=== PATIENT | male | born 1980 | race Caucasian/White ===

== ENCOUNTER 2018-07-21 15:03 | Emergency (ER) | payer OTHER, SELFPAY ==
[2018-07-21 15:06] VITALS: BP 164/87; PULSE 83; RESP 18; TEMP 37.2; O2SAT 99; BMI 21.1
--- NOTE | 2018-07-21 15:10 | ED.DCSUM_ITS ---
- ER Visit Summary Date of Service: 07/21/18 Chief Complaint: Vision presents with dental pain that started 2-3 days ago now he has left face swelling, he has an appointment to see a dentist. He has no fever chills or difficulty swallowing. Physical Examination: Patient has widespread dental decay, there is no periapical abscess but there is tenderness and swelling over the right side of the face. Normal soft palate and normal exam otherwise Emergency Department Course and Treatment: Patient will be discharged with antibiotics and Naprosyn. Discharge stable condition Impression: [Odontalgia Facial swelling] [] This note was generated with [employer] dictation software. It may contain incorrect words, spelling, and punctuation that were not noted in review of the chart prior to signing ED Disposition - Plan for ED Patient: Disposition: Home or Assisted Living Instructions: ED Abscess Dental Prescriptions: Naproxen [Naprosyn] 500 mg PO BID PRN #20 tab Clindamycin [Cleocin] 300 mg PO TID #60 cap Referrals: NOT,DEFINED [Primary Care Provider] - Additional Instructions: Follow-up with your dentist as scheduled
== END 2018-07-21 15:17 | disposition home or self-care (01) ==
PROVIDERS: Emergency Provider Emergency Medicine
DX: K08.89 Other specified disorders of teeth and supporting structures (principal); L02.01 Cutaneous abscess of face; Z72.0 Tobacco use
CPT/HCPCS: 99282

== ENCOUNTER 2023-01-03 22:01 | Inpatient (IN) | payer OTHER, SELFPAY ==
[2023-01-03 22:02] VITALS: BP 155/81; PULSE 99; RESP 18; TEMP 36.6; O2SAT 100
[2023-01-03 22:30] VITALS: O2SAT 97
--- NOTE | 2023-01-03 22:30 | EDS_ITS ---
HPI History of Present Illness Chief Complaint: Chest Pain Informant: patient Onset/Context/Timing Onset: Days (3) Activity at onset: other (Seems to occur randomly) Timing: Intermittent and Lasts (20 minutes or so, current episode lasting about 3 hours and still present) Quality: Positive for - (Squeezing/clutching) Location: Substernal (With radiation/tingling in both arms) Current Severity: Moderate Maximum Severity: Moderate Worsened By: Nothing and Eating; Not Worsened By Exertion, Movement of Arm, Movement of Torso, Breathing or Coughing Relieved By: Nothing Associated Symptoms: Positive for Diaphoresis; Negative for Nausea, Vomiting, Dyspnea, Cough, Fever, Lightheadedness or Palpitations Narrative Narrative: 42-year-old male has been having chest discomfort for the past 3 days, current episodes been lasting for 3 hours. Nonpleuritic, substernal radiates to both arms. Sister suddenly of a heart problem at age 43. He has not seen a doctor in a long time, no known medical problems. He is a smoker. Does not use any cocaine. CVD Risk Factors: Positive for Family History 1' </=55 and Smoking PFSH PFS Medical History no medical history no medical history Home Medications clindamycin HCl 150 mg capsule 300 mg (2 x 150 mg) PO TID #60 caps 07/21/18 [Rx Last Taken Unknown] naproxen 500 mg tablet 500 mg PO BID PRN #20 tabs 07/21/18 [Rx Last Taken Unknown] Allergy/AdvReac Type Severity Reaction Status Date / Time bupropion [From Wellbutrin] Allergy Swelling Verified 01/03/23 22:04 paroxetine [From Paxil] Allergy Swelling Verified 01/03/23 22:04 Social History (Updated 01/03/23 @ 22:[address] Angelo Nguyen MD) Smoking Status: Current every day smoker tobacco type: cigarettes substance use type: former substance user Date of last use: Years ago, methamphetamine and marijuana ROS ROS ED Constitutional Constitutional ED: Reports sweats; Denies chills or fever(s) Eyes Eyes: Denies change in vision or diplopia ENT ENT ED: Denies rhinorrhea or sore throat Cardiovascular Cardiovascular: Reports as per HPI, chest pain and radiating jaw, neck or arm pain; Denies leg edema, palpitations or syncope Respiratory/Chest Respiratory/Chest: Denies cough or dyspnea Gastrointestinal Gastrointestinal: Denies abdominal pain, diarrhea, nausea or vomiting Genitourinary Genitourinary ED: Denies dysuria or hematuria Musculoskeletal Musculoskeletal: Denies back pain or neck pain Integumentary Denies abscess or rash Neurologic Neurologic: Denies headache(s), paresthesias or weakness Psychiatric Psychiatric: Denies anxiety or suicidal thoughts EXAM Physical Exam Const Vital Signs: 01/03/23 22:02 01/03/23 22:30 01/03/23 22:55 Temperature 97.9 F Temperature Source Temporal Pulse Rate 99 Respiratory Rate 18 Blood Pressure 155/81 H 153/117 H Blood Pressure Mean 105 Pulse Ox 100 97 Oxygen Delivery Method Room Air Room Air Positive well nourished and well developed General Appearance ED: well developed and NAD HEENT Reports moist mucous membranes normocephalic and atraumatic Eyes PERRL and EOMs intact bilaterally Neck full ROM and supple Chest Wall inspection of chest normal and palpation of chest normal Resp normal respiratory effort and clear to auscultation bilaterally Cardio regular rate, regular rhythm and no murmurs GI non-tender and non-distended Auscultation: normoactive bowel sounds Palpation: soft Back/Spine no CVA tenderness General Back: other FROM Extremity normal to inspection General Extremety ED: Negative for edema, pulses abnormal or tenderness General Extremity: Negative for edema or pulses abnormal Neuro oriented x3, CN's II-XII intact bilaterally and no sensory deficits noted Sensorium / Orientation: awake and alert Motor Exam: strength 5/5 throughout Skin no rashes or lesions noted and no wounds Heart Score History: Highly Suspicious ECG: Nonspecific Repolarization Age: </= 45 years Risk Factors: 1 or 2 Risk Factors Troponin: >/=3 x Normal Limit Score: 6 MDM MDM MDM Narrative Medical decision making narrative: Patient was given aspirin and nitroglycerin after 1 single sublingual nitroglycerin his pain is a lot better but still present. His EKG is concerning for unstable angina along with the symptoms, his troponin is high accordingly. Chest x-ray shows narrow mediastinum. He does not have symptoms of a dissection so I think that is a lot less likely here. Discussed with Dr. Richardson cardiology, advises heparin and nitroglycerin drips and agrees that the EKG is not a STEMI, advises admission. Patient is stable clinically and hemodynamically blood pressure doing well in the 150s after the sublingual nitroglycerin prior to starting the drip. Lab Data Attestation: I reviewed the patient's lab results. Labs: Laboratory Results - last 24 hr 01/03/23 22:30 WBC 9.6 RBC 5.43 Hgb 17.5 H Hct 52.2 MCV 96.1 H MCH 32.2 H MCHC 33.5 RDW Std Deviation 48.4 H RDW Coeff of Silvana 13.6 Plt Count 298 MPV 10.8 Immature Gran % (Auto) 0.200 Neut % (Auto) 62.4 Lymph % (Auto) 22.5 [place] % (Auto) 11.4 H Eos % (Auto) 2.5 Baso % (Auto) 1.0 Absolute Neuts (auto) 6.0 Absolute Lymphs (auto) 2.17 Nucleated RBC % 0 APTT 27.5 Sodium 138 Potassium 3.6 Chloride 103 Carbon Dioxide 25.0 Anion Gap 10 BUN 5 L Creatinine 0.99 Est GFR (MDRD) Af Amer 106 Est GFR (MDRD) Non-Af 87 BUN/Creatinine Ratio 5.0 L Glucose 92 Calcium 8.8 Troponin I High Sens 7592 H* Radiography Chest X-Ray - ED: 2 View, Read by ED Physician and No Acute Disease Diagnostic Testing: Clinical Impression(s) from Imaging Studies Chest X-Ray 01/03/23 22:45 IMPRESSION: No acute pulmonary disease. Electronically Signed: Sharath Jama MD at 23:15 EDT Reading Location ID and State: [address] [place] [address] Tel , Service support , Rhythm Strip Rhythm Strip: Sinus Tach Rate: 100 Ectopy: None EKG Initial EKG: Attestation: I personally reviewed and interpreted this EKG as follows: Interpretation: Sinus Rhythm, No Acute Injury Pattern, Inverted T-Waves (Precordial leads) and S-T Elevation (1 mm V5-V6) Prior EKG tracings: not available for review Prior: No Prior Management Discussion w/another healthcare provider: Hospitalist and Learning Coach (Cardiology Dr. 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
[2023-01-03] MEDS: Aspirin 81 MG TAB.CHEW 324 MG PO (22:31)
[2023-01-03 22:42] LABS: Absolute Lymphocyte Count 2.17 X10^3/uL (0.83-4.51); Eosinophil# 0.24 X10^3/uL; Eosinophils% 2.5 % (0-5); Hematocrit 52.2 % (40-54); Hemoglobin 17.5 g/dL (13.0-16.5); Lymphocyte # 2.17 X10^3/ul (0.83-4.51); Lymphocyte % 22.5 % (19-41); Mean Corp Hgb Conc 33.5 g/dL (32-36); Mean Corpuscular Hgb 32.2 pg (27.0-32.0); Mean Corpuscular Volume 96.1 fL (80-94); Mean Platelet Vol. 10.8 fl (6.2-12.0); Monocyte% 11.4 % (0-10); NRBC Flagged by Analyzer 0 % (0-5); Neutrophil # 6.01 X10^3/uL (2.7-7.7); Neutrophil % 62.4 % (47-70); Platelet Count 298 K/mm3 (150-450); RBC Distribution Width CV 13.6 % (11.6-14.6); RBC Distribution Width SD 48.4 fl (35.1-43.9); Red Blood Count 5.43 M/mm3 (4.6-6.2); White Blood Count 9.6 K/mm3 (4.4-11.0)
--- NOTE | 2023-01-03 22:45 | RAD_ITS ---
INDICATION: chest pain EXAMINATION: Frontal view of the chest COMPARISON: None. FINDINGS: Frontal view of the chest was obtained. The cardiac silhouette is not enlarged. No confluent airspace disease. No pneumothorax. No acute fracture identified. RAD/Chest 1 View (Portable) IMPRESSION: No acute pulmonary disease. Electronically Signed: Sharath Jama MD at 23:15 EDT ,
[2023-01-03 22:52] LABS: Partial Thromboplast Time 27.5 Seconds (24.1-36.2)
[2023-01-03 22:55] VITALS: BP 153/117
[2023-01-03] MEDS: 0.9% Normal Saline 1,000 ML 150 ML IV (22:55)
[2023-01-03] MEDS: Nitroglycerin SL (ED/IMG/CATH) 0.4 MG TABLET SL (22:55)
[2023-01-03 23:06] LABS: Anion Gap 10 (5-15); BUN 5 mg/dL (7-18); Calcium,Total 8.8 mg/dL (8.5-10.1); Chloride 103 mmol/L (98-107); Creatinine, Serum 0.99 mg/dL (0.70-1.30); EST Glomerular Filtration Rate 87 mL/min (>60); Est Glom Filt Rate - Afr Amer 106 mL/min (>60); Glucose 92 mg/dL (74-106); Potassium 3.6 mmol/L (3.5-5.1); Sodium Level 138 mmol/L (136-145); Troponin-I HS (w/2H Reflex) 7592 pg/mL (3.0-78.0)
[2023-01-03 23:23] VITALS: BMI 20.9
--- NOTE | 2023-01-03 23:32 | HP.PCM.HOS_ITS ---
HPI - General General Date of Admission: 01/04/23 Date of Service: 01/03/23 Chief Complaint: Chest pain HPI Narrative ELANA ROGERS, is a 42 M with a significant history of alcoholism and tobacco abuse who presents to the emergency department with 3-day history of chest pain. His chest pain is located at his left chest. The chest pain radiates to his bilateral hands; left, worse than right. He described chest pain as burning and tightening.Initially his chest pain was lasting for about 20 minutes at a time but on the day of presentation the chest pain lasted about 3 hours nonstop. The intensity of the pain was 8 on a scale of 1-10. Also chest pain increased has increased in intensity since it started 3 days ago. If he raise his hand above his head the chest pain eases his for little while. If he eats the chest pain worsens. He associated his chest pain with heartburn. [facility] Medical History no medical history no medical history Home Medications NK 01/04/23 [History Last Taken Unknown] Allergy/AdvReac Type Severity Reaction Status Date / Time bupropion [From Wellbutrin] Allergy Swelling Verified 01/03/23 22:04 paroxetine [From Paxil] Allergy Swelling Verified 01/03/23 22:04 Family History (Updated 01/04/23 @ 00:[address] Blane Hobbs MD) Other Heart disease no surgical history Social History Smoking Status: Current every day smoker tobacco type: cigarettes substance use type: former substance user Date of last use: Years ago, methamphetamine and marijuana ROS ROS Narrative Pertinent positives and pertinent negatives as noted in HPI. All other systems were reviewed and are negative Vital Signs Vital Signs Vital Signs: 01/03/23 22:02 01/03/23 22:30 01/03/23 22:55 Temperature 97.9 F Temperature Source Temporal Pulse Rate 99 Respiratory Rate 18 Blood Pressure 155/81 H 153/117 H Blood Pressure Mean 105 Pulse Ox 100 97 Oxygen Delivery Method Room Air Room Air Weight Weight: 71.894 kg Body Mass Index (BMI) 20.9 Physical Exam Narrative Physical exam: General: Well-nourished, well-developed. Head: Normocephalic, atraumatic, no tenderness Eyes: Vision is grossly intact. EOMI ENT, no trauma, moist mucous membranes, no rhinorrhea Neck: Nontender, No thyromegaly. CVS: Regular rate and rhythm. S1-S2 present. No murmur, gallop or rub. Respiratory : clear to auscultation bilaterally, chest wall nontender Abdomen: Soft, nontender, nondistended, normal bowel sounds, no masses : Deferred Back: Nontender, no CVA tenderness, no midline spinal tenderness, deformities, step-offs Extremities: Nontender full range of motion, no trauma Skin: Normal color, no trauma, abrasions Neuro: Alert, oriented, cranial nerves II through XII grossly intact. Psychiatry: Normal mood. Normal affect. Not depressed. Not anxious. Results Lab / Micro Data 01/03/23 22:30 01/03/23 22:30 Labs: Laboratory Results - last 24 hr 01/03/23 22:30: WBC 9.6, RBC 5.43, Hgb 17.5 H, Hct 52.2, MCV 96.1 H, MCH 32.2 H, MCHC 33.5, RDW Std Deviation 48.4 H, RDW Coeff of Silvana 13.6, Plt Count 298, MPV 10.8, Immature Gran % (Auto) 0.200, Neut % (Auto) 62.4, Lymph % (Auto) 22.5, [place] % (Auto) 11.4 H, Eos % (Auto) 2.5, Baso % (Auto) 1.0, Absolute Neuts (auto) 6.0, Absolute Lymphs (auto) 2.17, Nucleated RBC % 0, APTT 27.5, Sodium 138, Potassium 3.6, Chloride 103, Carbon Dioxide 25.0, Anion Gap 10, BUN 5 L, Creatinine 0.99, Est GFR (MDRD) Af Amer 106, Est GFR (MDRD) Non-Af 87, BUN/Creatinine Ratio 5.0 L, Glucose 92, Calcium 8.8, Troponin I High Sens 7592 H* Rhythm Strip Rhythm Strip: Sinus Tach Rate: 100 Ectopy: None Radiology Impression Chest X-Ray 01/03/23 22:45 IMPRESSION: No acute pulmonary disease. Electronically Signed: Sharath Jama MD at 23:15 EDT , Assessment & Plan Assessment/Plan (1) Non-STEMI (non-ST elevated myocardial infarction): PLAN: Plan Non-STEMI Place on a monitored bed at ICU Impression of chest x-ray by radiology: No acute pulmonary disease. Actual CXR image was independently visualized. No acute cardiopulmonary process was noted. Actual EKG tracing was independently visualized. EKG tracing showed T wave inver sions in lead V1 to V6. Received 4 baby aspirin's at the emergency department. ASA 81 mg p.o. daily ordered Placed on nitroglycerin drip in the emergency department. Morphine as needed for pain ordered We will check lipid panel. Statin: High intensity statin ordered. Anticoagulation: Started on heparin drip for emergent department and continued. Initial high sensitivity troponin was 7592. Stat EKG as needed for chest pain Alcoholism Counselled Routine CIWA checks. Folic acid and thiamine ordered. Tobacco abuse Counseled. DVT prophylaxis: Not indicated as patient restart heparin drip for non-STEMI. Time spent in the patient's overall evaluation,decision-making process, review of diagnostic data, adjustment of management, discussion with other providers, nursing nursing and ancillary staff involved in patient's care documentation, 65 minutes. Charges/Coding Visit Charges Inpatient E&M: 87711 Init Hosp L3
[2023-01-03] MEDS: Heparin Injection (Vial) 5,000 UNIT/ML VIAL 4000 UNIT IV (23:47)
[2023-01-03 23:53] LABS: Prothrombin Time (Protime)PT. 12.7 SECONDS (11.7-14.9)
[2023-01-03] MEDS: HEPARIN/D5w 25,000 UNITS 25,000 UNITS/250 ML IV.SOLN. 9 UNITS CONT INF (23:53)
[2023-01-03 23:56] VITALS: BP 152/110
[2023-01-03] MEDS: Nitroglycerin Infusion 250 ML 3 MG CONT INF (23:56)
--- NOTE | 2023-01-03 23:57 | EKG12_ITS ---
Test Reason : AM EKG Blood Pressure : / mmHG Vent. Rate : 058 BPM Atrial Rate : 058 BPM P-R Int : 152 ms QRS Dur : 110 ms QT Int : 414 ms P-R-T Axes : 046 032 128 degrees QTc Int : 406 ms Sinus bradycardia with sinus arrhythmia Incomplete right bundle branch block Minimal voltage criteria for LVH, may be normal variant ( Wayne product ) Anteroseptal infarct (cited on or before 03-JAN-2023) ST & Marked T wave abnormality, consider lateral ischemia Abnormal ECG Confirmed by MONTANA FALL, TASHI ([id number]), technical editor SAMUEL GRIFFIN ([id number]) on 01/09/2023 7:17:29 AM Referred By: Confirmed By:TASHI BOYLE MD
[2023-01-04] VITALS (32 sets, daily range): BP systolic 106–160; BP diastolic 81–117; PULSE 51–99; RESP 12–24; TEMP 36.3–36.8; O2SAT 90–100; BMI 21.4
--- NOTE | 2023-01-04 00:08 | ED.RN ---
0008: Report called to Rebekah LIM on ICU. Dr. Salazar speaking with patient.
--- NOTE | 2023-01-04 00:20 | ECHOD_ITS ---
Reason For Study: CHEST PAIN Procedure This was a 2D Doppler, Color Flow transthoracic echocardiogram. Exam performed portable in ICU/CCU. Left Ventricle Mildly dilated left ventricle. The estimated ejection fraction is 30 %. Apical akinesis. Severe anterior and anterior septal hypokinesis. Global hypokinesis. Right Ventricle Normal RV size. Normal systolic function. Atria The left and right atria are normal. Mitral Valve The mitral valve is structurally normal. No prolapse or stenosis seen. Trivial mitral valve insufficiency. Tricuspid Valve Normal tricuspid valve. Trivial tricuspid valve insufficiency. Unable to estimate RV systolic pressure due to insufficient tricuspid regurgitant envelope. Aortic Valve Trisinus/trileaflet aortic valve. Mild focal thickening of the right coronary cusp. Mild focal aortic valve calcification. There is no aortic stenosis. No aortic valve insufficiency. Pulmonic Valve Normal pulmonic valve. Great Vessels Normal aortic root. Pericardium/Pleural No pericardial effusion. MMode/2D Measurements & Calculations LVIDd: 5.9 cm IVSd: 1.1 cm LAV(MOD-bp): 48.8 ml LVIDs: 5.0 cm LVPWd: 1.6 cm LAV(MOD-bp) Indexed: 25.6 ml/m2 RVDd: 2.9 cm FS: 14.9 % LAV(MOD-sp2): 59.5 ml LAV(MOD-sp4): 37.5 ml SV(MOD-sp4): 42.5 ml SV(sp4-el): 41.0 ml LVAd ap4: 37.9 cm2 LVLd ap4: 8.6 cm EDV(MOD-sp4): 139.4 ml EDV(sp4-el): 141.4 ml LVAs ap4: 31.4 cm2 LVLs ap4: 8.3 cm ESV(MOD-sp4): 96.9 ml ESV(sp4-el): 100.5 ml EF(MOD-sp4): 30.5 % EF(sp4-el): 29.0 % LA A4 area: 14.9 cm2 LA dimension(2D): 3.5 cm RA A4 area: 10.7 cm2 TAPSE: 1.5 cm Time Measurements MV dec time: 0.11 sec Doppler Measurements & Calculations MV E max angelo: 70.1 cm/sec Lat Peak E' Angelo: 5.2 cm/sec Med Peak E' Angelo: 6.7 cm/sec MV A max angelo: 44.1 cm/sec E/E' lat: 13.5 E/E' med: 10.4 MV E/A: 1.6 MV V2 max: 79.4 cm/sec Ao V2 max: 104.5 cm/sec MV max P.5 mmHg MV dec slope: 633.9 cm/sec2 Ao max P.4 mmHg MV V2 mean: 49.6 cm/sec Ao V2 mean: 74.8 cm/sec MV mean P.1 mmHg Ao mean P.6 mmHg MV V2 VTI: 20.4 cm Ao V2 VTI: 19.6 cm AV (velocity ratio): 0.72 LV V1 max: 78.5 cm/sec LV V1 max P.5 mmHg LV V1 mean P.5 mmHg LV V1 mean: 57.8 cm/sec LV V1 VTI: 14.1 cm ECHO/Echo Complete Interpretation Summary The estimated ejection fraction is 30 %. Mildly dilated left ventricle. Apical akinesis. Severe anterior and anterior septal hypokinesis. Global hypoki nesis. Ordering Physician: Blane Hobbs Referring Physician: TEO PCP Performed By: Marly España and Student
--- NOTE | 2023-01-04 00:20 | EKG12_ITS ---
Test Reason : POST CATH Blood Pressure : / mmHG Vent. Rate : 067 BPM Atrial Rate : 067 BPM P-R Int : 156 ms QRS Dur : 112 ms QT Int : 478 ms P-R-T Axes : 032 012 111 degrees QTc Int : 505 ms Normal sinus rhythm Left ventricular hypertrophy with repolarization abnormality Septal infarct (cited on or before 03-JAN-2023) Prolonged QT Abnormal ECG When compared with ECG of 03-JAN-2023 22:09, Vent. rate has decreased BY 36 BPM Serial changes of evolving Septal infarct Present Confirmed by MONTANA FALL, TASHI ([id number]), news videotape editor SAMUEL GRIFFIN ([id number]) on 01/09/2023 7:27:14 AM Referred By: GUICHO Confirmed By:TASHI BOYLE MD
[2023-01-04 00:39] LABS: Reflex Troponin-HS? (from REC) Y
[2023-01-04] MEDS: Atorvastatin Calcium 80 MG Tablet PO (01:00)
[2023-01-04] MEDS: 0.9% Normal Saline 1,000 ML 100 ML IV ×2 (01:01→08:27)
[2023-01-04 01:24] LABS: Troponin-I HS 10700 pg/mL (3.0-78.0)
[2023-01-04] MEDS: 0.9% Saline Lock 10 ML Syringe IV (02:37)
[2023-01-04] MEDS: Carvedilol 3.125 MG TABLET PO (02:37)
[2023-01-04 03:35] LABS: Absolute Lymphocyte Count 2.16 X10^3/uL (0.83-4.51); Absolute Neutrophil Count 6.5 X10^3/uL (2.0-7.7); Basophil# 0.04 X10^3/uL; Basophil% 0.4 % (0-1); Hematocrit 37.4 % (40-54); Lymphocyte # 2.16 X10^3/ul (0.83-4.51); Lymphocyte % 21.8 % (19-41); Mean Corp Hgb Conc 32.1 g/dL (32-36); Mean Corpuscular Hgb 28.2 pg (27.0-32.0); Monocyte# 0.98 X10^3/uL; Monocyte% 9.9 % (0-10); NRBC Flagged by Analyzer 0 % (0-5); Neutrophil # 6.49 X10^3/uL (2.7-7.7); Neutrophil % 65.5 % (47-70); Platelet Count 253 K/mm3 (150-450); RBC Distribution Width CV 14.9 % (11.6-14.6); RBC Distribution Width SD 47.9 fl (35.1-43.9); Red Blood Count 4.25 M/mm3 (4.6-6.2); White Blood Count 9.9 K/mm3 (4.4-11.0)
[2023-01-04 03:50] LABS: Anion Gap 5 (5-15); BUN 19 mg/dL (7-18); BUN/Creat Ratio 20.4 RATIO (10-20); Calcium,Total 8.3 mg/dL (8.5-10.1); Chloride 104 mmol/L (98-107); Cholesterol 163 mg/dL (200); Creatinine, Serum 0.93 mg/dL (0.70-1.30); EST Glomerular Filtration Rate 94 mL/min (>60); Est Glom Filt Rate - Afr Amer 114 mL/min (>60); Estimated Creatinine Clearance 106.47 ml/min; Glucose 204 mg/dL (74-106); High Density Lipoprotein 27 mg/dL; Potassium 3.8 mmol/L (3.5-5.1); Sodium Level 141 mmol/L (136-145); Triglycerides 138 mg/dL; Very Low Density Lipoprotein 28 mg/dL (5-40)
[2023-01-04 05:07] LABS: Troponin-I HS 24972 pg/mL (3.0-78.0)
[2023-01-04 06:20] LABS: Partial Thromboplast Time 51.7 Seconds (24.1-36.2)
--- NOTE | 2023-01-04 07:35 | PCM.PN.HOSP ---
Reason for Visit Reason for Visit: Chest pain Subjective Subjective Patient is a 42-year-old male with a history of alcoholism and tobacco abuse who presented to the emergency department with a 3-day history of chest pain. Chest pain was localized on the left side of his chest and radiated to bilateral hands. It was worse on the left than the right. He described it as burning and tightening in his chest and was lasting for about 20 minutes at a time but had had few episodes on and off. The most recent episode had lasted for about 3 hours nonstop. On presentation he rated it as 8 out of 10 on a scale of 1-10. Vital signs on presentation showed temperature of 97.9, heart rate 90, blood pressure 160/105, respiratory 18 oxygen saturations are 98% on room air. CBC was overall unremarkable coags are normal. Chemistry panel was unremarkable. His initial troponin was 7592. Patient was admitted to the ICU for an NSTEMI. He received baby aspirin in the emergency department and was placed on a nitroglycerin drip. He was started on a heparin drip and cardiology was consulted. Patient states he is not currently having any chest pain. He stated when his symptoms started he thought he was having indigestion and that is why he did not come in earlier. He denies daily alcohol use but does state he smokes tobacco and marijuana. Objective Data Objective Data Vital Signs: Vital Signs Temp Pulse Resp BP Pulse Ox O2 Del Method O2 Flow Rate 97.4 F L 86 20 H 149/104 H 94 Room Air 2 01/04/23 06:00 01/04/23 06:00 01/04/23 06:00 01/04/23 06:00 01/04/23 06:00 01/04/23 06:00 01/04/23 04:00 Oxygen Flow Rate (L/min) 2 Oxygen Delivery Method Room Air Weight: 73.5 kg Body Mass Index (BMI) 21.4 Intake & Output: Intake and Output for Last 24 Hours 01/02/23 01/03/23 01/04/23 23:59 23:59 23:59 Intake Total 530 / 530 Balance 530 / 530 Lab / Micro Data 01/04/23 03:25 01/04/23 03:25 Labs: Laboratory Results - last 24 hr 01/03/23 22:30: WBC 9.6, RBC 5.43, Hgb 17.5 H, Hct 52.2, MCV 96.1 H, MCH 32.2 H, MCHC 33.5, RDW Std Deviation 48.4 H, RDW Coeff of Silvana 13.6, Plt Count 298, MPV 10.8, Immature Gran % (Auto) 0.200, Neut % (Auto) 62.4, Lymph % (Auto) 22.5, Major % (Auto) 11.4 H, Eos % (Auto) 2.5, Baso % (Auto) 1.0, Absolute Neuts (auto) 6.0, Absolute Lymphs (auto) 2.17, Nucleated RBC % 0, PT 12.7, INR 1.0, APTT 27.5, Sodium 138, Potassium 3.6, Chloride 103, Carbon Dioxide 25.0, Anion Gap 10, BUN 5 L, Creatinine 0.99, Est GFR (MDRD) Af Amer 106, Est GFR (MDRD) Non-Af 87, BUN/Creatinine Ratio 5.0 L, Glucose 92, Calcium 8.8, Troponin I High Sens 7592 H* 01/04/23 00:55: Troponin I High Sens [id number] H* 01/04/23 03:25: WBC 9.9, RBC 4.25 L, Hgb 12.0 L, Hct 37.4 L, MCV 88.0 D, MCH 28.2, MCHC 32.1, RDW Std Deviation 47.9 H, RDW Coeff of Silvana 14.9 H, Plt Count 253, MPV 10.0, Immature Gran % (Auto) 0.400, Neut % (Auto) 65.5, Lymph % (Auto) 21.8, Major % (Auto) 9.9, Eos % (Auto) 2.0, Baso % (Auto) 0.4, Absolute Neuts (auto) 6.5, Absolute Lymphs (auto) 2.16, Nucleated RBC % 0, Sodium 141, Potassium 3.8, Chloride 104, Carbon Dioxide 32.0, Anion Gap 5, BUN 19 H, Creatinine 0.93, Estim Creat Clear Calc 106.47, Est GFR (MDRD) Af Amer 114, Est GFR (MDRD) Non-Af 94, BUN/Creatinine Ratio 20.4 H, Glucose 204 H, Calcium 8.3 L, Triglycerides 138, Cholesterol 163, LDL Cholesterol 108, VLDL Cholesterol 28, HDL Cholesterol 27 L 01/04/23 04:32: Troponin I High Sens [id number] H* 01/04/23 06:04: APTT 51.7 H Radiography Diagnostic Testing: Radiology Impression Chest X-Ray 01/03/23 22:45 IMPRESSION: No acute pulmonary disease. Electronically Signed: Sharath Jama MD at 23:15 EDT Reading Location ID and State: [facility] / [place] Tel , Service support , Rhythm Strip Rhythm Strip: Sinus Tach Rate: 100 Ectopy: None Physical Exam Const alert, oriented x3, no apparent distress, average body habitus and well nourished Constitutional Narrative: Middle-aged, white male, sitting up in bed, appears much older than stated age, nontoxic, appears comfortable at this time HEENT head/scalp atraumatic and moist oral mucous membranes HEENT Narrative: Dentition is extremely poor, Mallampati is 1, no thrush Head and Scalp: normocephalic Resp normal respiratory effort, no retractions, no use of accessory muscles and clear to auscultation bilaterally Resp Narrative: Diffusely diminished but clear Auscultation: Negative for rales, rhonchi or wheezes Cardio regular rate, regular rhythm, S1 normal heart sound, S2 normal heart sound, no murmurs, no rub, no gallops and no clicks GI normal to inspection, nondistended, normoactive bowel sounds, soft to palpation and non-tender Extremity no clubbing, cyanosis or edema Extremity Narrative: Pulses are 2+ Neuro oriented x3, CN's II-XII intact bilaterally, moves all extremities and no focal motor deficits Speech: speech normal Psych affect normal Assessment & Plan Assessment/Plan (1) Non-STEMI (non-ST elevated myocardial infarction): PLAN: Plan NSTEMI -continue heparin drip -Continue nitro drip -Continue Coreg but increase dose from 3.125-12.5 twice daily -Add lisinopril 10 mg daily -Continue high intensity dose statin -Continue aspirin -Echocardiogram is pending -Check hemoglobin A1c -Total cholesterol is 163/LDL is 108/HDL 27/triglycerides 138 -Cardiology consult pending anticipate cardiac catheterization later today Hyperglycemia -Check hemoglobin A1c -A.m. fasting blood sugar was 204 -If A1c is elevated will add sliding scale and Accu-Cheks Hypertension -Increase Coreg from 3.125 to 12.5 mg daily -Add lisinopril 10 mg -Patient does not carry a diagnosis of hypertension but his blood pressures have been consistently elevated during his hospital stay Alcohol use -Patient reports he drinks 2-3 beers occasionally throughout the week -Never had withdrawal symptoms -Does not drink daily Tobacco use/marijuana use -Recommend cessation -We will add nicotine patch if needed DVT Prophylaxis -cont Heparin ggt CODE STATUS -Full code Charges/Coding Visit Charges Inpatient E&M: 91938 Subs Hosp L2
[2023-01-04] MEDS: Folic Acid 1 MG Tablet PO (08:28)
[2023-01-04] MEDS: Thiamine Hydrochloride 100 MG Tablet PO (08:28)
[2023-01-04] MEDS: Aspirin 81 MG TAB.CHEW PO (08:28)
[2023-01-04] MEDS: Carvedilol 12.5 MG Tablet PO (08:32)
[2023-01-04] MEDS: Lisinopril 10 MG Tablet PO (08:36)
[2023-01-04 08:40] LABS: Hemoglobin A1c 7.6 % (3.8-5.6)
--- NOTE | 2023-01-04 10:33 | CON.PCM.CA_ITS ---
Assessment & Plan Assessment/Plan (1) Non-STEMI (non-ST elevated myocardial infarction): PLAN: Recommend coronary angiography and possible revascularization. Risks benefits and alternatives explained. He understand these and wishes to proceed. (2) Hypertension: PLAN: Nitrates, beta-blockers, HUMZA inhibitors. (3) Nicotine dependence: PLAN: Counseled to quit. (4) Diabetes mellitus: PLAN: Elevated HbA1c. Follow as per internal medicine. (5) Dyslipidemia: PLAN: Atorvastatin. HPI Consult Data Date of Consult: 01/04/23 HPI Narrative Reason for Consultation: NSTEMI HPI Narrative: The patient has past medical history significant for nicotine dependence. He presented to the emergency room with complaints of anterior chest discomfort for the last 3 days. Intermittent. He tried to ride it out first but when it failed to resolve completely and Kept recurring, he presented to the emergency room. In the emergency room, he was noted to have ECG changes and elevated troponins ruling him in for NSTEMI. Presently pain-free. [facility] Medical History (Updated 01/04/23 @ 10:[address] Sharron Richardson MD) Tobacco abuse Medical History no medical history Home Medications NK 01/04/23 [History Last Taken Unknown] Allergy/AdvReac Type Severity Reaction Status Date / Time bupropion [From Wellbutrin] Allergy Swelling Verified 01/03/23 22:04 paroxetine [From Paxil] Allergy Swelling Verified 01/03/23 22:04 Family History Other Heart disease Surgical History no surgical history Social History Smoking Status: Current every day smoker tobacco type: cigarettes substance use type: former substance user Date of last use: Years ago, methamphetamine and marijuana Physical Exam Narrative Appears older for stated age. Comfortable. No apparent distress. Heart sounds 1 and 2 normal. No murmurs or rubs noted. Chest clear to auscultation bilaterally. Abdomen soft. Bowel sounds positive. Alert oriented x3. No ankle edema noted. Risk Stratification Risk Stratification Applicable: No Objective Data Vital Signs: Vital Signs Temp Pulse Resp BP Pulse Ox O2 Del Method O2 Flow Rate 97.5 F L 74 19 H 131/84 H 95 Room Air 2 01/04/23 08:00 01/04/23 10:00 01/04/23 10:00 01/04/23 10:00 01/04/23 10:00 01/04/23 10:00 01/04/23 04:00 Oxygen Flow Rate (L/min) 2 Oxygen Delivery Method Room Air Weight: 162 lb 0.636 oz Body Mass Index (BMI) 21.4 Intake & Output: Intake and Output for Last 24 Hours 01/02/23 01/03/23 01/04/23 23:59 23:59 23:59 Intake Total 1394.43 / 1394.43 Output Total 50 / 50 Balance 1344.43 / 1344.43 Lab / Micro Data 01/04/23 03:25 01/04/23 03:25 Labs: Laboratory Results - last 24 hr 01/03/23 22:30: WBC 9.6, RBC 5.43, Hgb 17.5 H, Hct 52.2, MCV 96.1 H, MCH 32.2 H, MCHC 33.5, RDW Std Deviation 48.4 H, RDW Coeff of Silvana 13.6, Plt Count 298, MPV 10.8, Immature Gran % (Auto) 0.200, Neut % (Auto) 62.4, Lymph % (Auto) 22.5, Webster % (Auto) 11.4 H, Eos % (Auto) 2.5, Baso % (Auto) 1.0, Absolute Neuts (auto) 6.0, Absolute Lymphs (auto) 2.17, Nucleated RBC % 0, PT 12.7, INR 1.0, APTT 27.5, Sodium 138, Potassium 3.6, Chloride 103, Carbon Dioxide 25.0, Anion Gap 10, BUN 5 L, Creatinine 0.99, Est GFR (MDRD) Af Amer 106, Est GFR (MDRD) Non-Af 87, BUN/Creatinine Ratio 5.0 L, Glucose 92, Calcium 8.8, Troponin I High Sens [id number] H* 01/04/23 00:55: Troponin I High Sens [id number] H* 01/04/23 03:25: WBC 9.9, RBC 4.25 L, Hgb 12.0 L, Hct 37.4 L, MCV 88.0 D, MCH 28.2, MCHC 32.1, RDW Std Deviation 47.9 H, RDW Coeff of Silvana 14.9 H, Plt Count 253, MPV 10.0, Immature Gran % (Auto) 0.400, Neut % (Auto) 65.5, Lymph % (Auto) 21.8, Webster % (Auto) 9.9, Eos % (Auto) 2.0, Baso % (Auto) 0.4, Absolute Neuts (auto) 6.5, Absolute Lymphs (auto) 2.16, Nucleated RBC % 0, Sodium 141, Potassium 3.8, Chloride 104, Carbon Dioxide 32.0, Anion Gap 5, BUN 19 H, Creatinine 0.93, Estim Creat Clear Calc 106.47, Est GFR (MDRD) Af Amer 114, Est GFR (MDRD) Non-Af 94, BUN/Creatinine Ratio 20.4 H, Glucose 204 H, Hemoglobin A1c 7.6 H, Calcium 8.3 L, Triglycerides 138, Cholesterol 163, LDL Cholesterol 108, VLDL Cholesterol 28, HDL Cholesterol 27 L 01/04/23 04:32: Troponin I High Sens [id number] H* 01/04/23 06:04: APTT 51.7 H Rhythm Strip Rhythm Strip: Sinus Tach Rate: 100 Ectopy: None Cardiology Labs/Tests 01/03/23 22:30: WBC 9.6, RBC 5.43, Hgb 17.5 H, Hct 52.2, MCV 96.1 H, MCH 32.2 H, MCHC 33.5, Plt Count 298, MPV 10.8, Immature Gran % (Auto) 0.200, Neut % (Auto) 62.4, Lymph % (Auto) 22.5, Webster % (Auto) 11.4 H, Eos % (Auto) 2.5, Baso % (Auto) 1.0, Absolute Neuts (auto) 6.0, Nucleated RBC % 0, PT 12.7, INR 1.0, APTT 27.5, Sodium 138, Potassium 3.6, Chloride 103, Carbon Dioxide 25.0, Anion Gap 10, BUN 5 L, Creatinine 0.99, Est GFR (MDRD) Af Amer 106, Est GFR (MDRD) Non-Af 87, BUN/Creatinine Ratio 5.0 L, Glucose 92, Calcium 8.8 01/04/23 03:25: WBC 9.9, RBC 4.25 L, Hgb 12.0 L, Hct 37.4 L, MCV 88.0 D, MCH 28.2, MCHC 32.1, Plt Count 253, MPV 10.0, Immature Gran % (Auto) 0.400, Neut % (Auto) 65.5, Lymph % (Auto) 21.8, Webster % (Auto) 9.9, Eos % (Auto) 2.0, Baso % (Auto) 0.4, Absolute Neuts (auto) 6.5, Nucleated RBC % 0, Sodium 141, Potassium 3.8, Chloride 104, Carbon Dioxide 32.0, Anion Gap 5, BUN 19 H, Creatinine 0.93, Est GFR (MDRD) Af Amer 114, Est GFR (MDRD) Non-Af 94, BUN/Creatinine Ratio 20.4 H, Glucose 204 H, Hemoglobin A1c 7.6 H, Calcium 8.3 L, Triglycerides 138, Cholesterol 163, LDL Cholesterol 108, VLDL Cholesterol 28, HDL Cholesterol 27 L 01/04/23 06:04: APTT 51.7 H Rhythm: EKG: ECHO: Stress Test: Cardiac Cath: PCI: CT Surgery: Holter monitor: EPS: PPM: CXR: Chest CT Scan: Radiography Diagnostic Testing: Radiology Impression Chest X-Ray 01/03/23 22:45 IMPRESSION: No acute pulmonary disease. Electronically Signed: Sharath Jama MD at 23:15 EDT ,
--- NOTE | 2023-01-04 11:44 | NURSING ---
Patient left unit to produce laborer, report given to CARINA Pitts
--- NOTE | 2023-01-04 13:04 | CASEMGMT ---
Tertiary facilities in-network with patient's insurance: [facility], [facility], , [facility]
--- NOTE | 2023-01-04 13:30 | EKG12_ITS ---
Test Reason : CHEST PAIN Blood Pressure : / mmHG Vent. Rate : 085 BPM Atrial Rate : 085 BPM P-R Int : 180 ms QRS Dur : 102 ms QT Int : 382 ms P-R-T Axes : 057 -22 087 degrees QTc Int : 454 ms Normal sinus rhythm Anteroseptal infarct , age undetermined ST & T wave abnormality, consider lateral ischemia Abnormal ECG When compared with ECG of 04-JAN-2023 02:29, MANUAL COMPARISON REQUIRED, DATA IS UNCONFIRMED Confirmed by MONTANA FALL, TASHI ([id number]), news assignment editor SAMUEL GRIFFIN ([id number]) on 01/09/2023 7:31:18 AM Referred By: NEIL Confirmed By:TASHI BOYLE MD
--- NOTE | 2023-01-04 13:45 | NURSING ---
Patient back from medical lab assistant
--- NOTE | 2023-01-04 13:46 | CL.I_ITS ---
Patient Name: ELANA ROGERS Study Date: 01/04/2023 Performing: Sharron Richardson MD Ht: 73 inches 185.42 cm : 1980 Wt: 162.3 lbs 73.5 kg Age: 42 Gender: male BSA: 1.97 PROCEDURE(S) PERFORMED IC12-([id number])FEDERICO W/WO PTCA, SINGLE CORONARY ARTERY [id number])LHC/COR CLINICAL PROFILE AND CO-MORBIDITIES Indications: ACS > 24 hrs Heart Failure: None Angina Classification Anginal Classification w/in 2 Weeks: CCS IV CAD Presentations: Non-STEMI. Symptom onset Date/Time: Time Not Available CONCLUSIONS 90% Prox LAD 60% Mid LCX 40% Mid RCA; 50% Mid RPDA Successful FEDERICO Prox LAD using Resolute Chuy 3.0x30 mm, post-dilated using 3.5 mm balloon, optimized proximally using 3.75 mm balloon RECOMMENDATIONS ASA Indefinitley Plavix for at least 12 months DESCRIPTION OF PROCEDURE The patient arrived to the procedure lab. The risks and benefits of the procedure as well as a full description of our services here and lack of surgical backup were fully explained to the patient and/or their significant other prior to the catheterization. The Timeout was completed, verifying the correct patient and procedure. The patient's procedural site was prepped and draped in the usual fashion. Local anesthetic was given subcutaneously to right radial region with Lidocaine 2%. Using a modified Seldinger technique, arterial access was obtained via the right radial artery, a 6Fr sheath was inserted.. Left Coronary Artery selective angiography was performed in multiple views using a 5 Fr. 4.0 [place] catheter. Right Coronary Artery selective angiography was then performed in multiple views using a 5 Fr. 4.0 [place] catheterThe images were reviewed and options discussed. A decision was then made to proceed with an Intervention, IVUS or other adjunct procedure. XB 3 Guide catheter was inserted and engaged into the LCA. Runthrough Guide wire was advanced to the LAD. 3.0 x 30 resolute Chuy Drug Eluting stent was advanced across the lesion in the LAD, proximal. Angiogram performed post stent deployment. 3.5 x 20 NC Emerge Balloon catheter was inserted post stent. Angiogram performed post balloon dilatation. 3.0 x 8 NC Emerge Balloon catheter was inserted post stent. PTCA balloon inflated at 12 atms for 9 secs. 3.75 x 12 NC Emerge Balloon catheter was inserted post stent. The arterial sheath was pulled and a TR Band was applied for hemostasis CORONARY ANGIOGRAPHY DOMINANCE: Right Dominant LEFT HEART ASSESSMENT Left Ventricular Ejection Fraction: Not assessed LEFT ANTERIOR DESCENDING ARTERY: LAD: Complex 90% Proximal lesion in LAD Tubular 50% Mid lesion in LAD DIAGONAL 1: Tubular 70% Proximal lesion in 1st Diagonal CIRCUMFLEX ARTERY: CIRCUMFLEX: Tubular 60% Mid lesion in Circumflex RIGHT CORONARY ARTERY: RCA: Tubular 40% Mid lesion in RCA RT PDA: Tubular 50% Mid lesion in Right PDA INTERVENTION INFORMATION LESION SITE: LAD (Proximal) Lesion Complexity: High/C, lesion length: mm, culprit lesion: Yes Pre Stenosis: 90% % Pre intervention LUCIANA flow: 3 PROCEDURE: Drug Eluting Stent with post dilatation Post Stenosis: 0% % Post intervention LUCIANA flow: 3 Lesion Devices: Cordis 6 Fr XB3.0 100cm Guide Catheter Terumo .014 300cm Runthrough extra floppy straight Medtronic Resolute Chuy RX FEDERICO 3.0x30 Deon Sci NC EMERGE MR 3.50x20 BALLOON Deon Sci NC EMERGE MR 3.00x08 BALLOON COMPLICATIONS No Complications PROCEDURE MEDICATIONS Fentanyl 50 mcg IV Versed 1 mg IV Oxygen: 2 L/min via nasal cannula Brilinta 180 mg PO @ 01/04/2023 12:50:00 Heparin given IA 01/04/2023 12:45:50 Heparin 6000 unit(s) IV 01/04/2023 12:53:30 Heparin 2000 unit(s) IV 01/04/2023 13:40:58 Nitro 100 mcg IC 01/04/2023 13:01:28 Nitro 100 mcg IC 01/04/2023 13:01:28 Verapamil 2.5mg, Ntg 200mcgs, 2000 units of Heparin given IA 01/04/2023 12:45:50 SUMMARY OF HEMODYNAMIC DATA Time AIR REST ECG 12:23:19 AO 96/68 (82) SA 12:47:59 AIR REST 13:41:23 Signed By Sharron Richardson MD On 01/05/2023 08:55:55 Signed By Sharron Richardson MD On 01/04/2023 13:45:30 Sharron Richardson MD
--- NOTE | 2023-01-04 13:50 | CASEMGMT ---
RN MASSIEL Face to Face with patient for initial transition planning/care coordination assessment. RN MASSIEL introduced self and role at [facility]. Patient lying in bed, alert and oriented. Patient willing to participate in assessment and is able to answer all questions appropriately. Care providers, pharmacy, and demographics verified. Patient wishes to discharge home, denies need for home health at this time. Patient states he has no further needs or concerns at this time. CM to follow for discharge planning needs that may arise. PCP: no PCP, CM will provide PCP list Specialists: none Preferred Pharmacy: [facility] Insurance: [employer] Prescription Benefit:yes Living Will/HPOA: none LNOK: father Living Arrangements: Patient lives with roommates in a 2 story home. Patient is independent and able to ambulate stairs. Transportation: roommates, public DME/HHC: Patient denies DME in the home. No previous HHC. Patient smokes 1/2 PPD of cigarettes and drinks 48oz of beer every other day. Patient denied resources. Disposition Plan: Patient to discharge home with family support and follow-up plans in place. Carla MOSS, RN, CM
[2023-01-04] MEDS: 0.9% Normal Saline 1,000 ML 75 ML IV (15:34)
[2023-01-04] MEDS: Clopidogrel Bisulfate 300 MG Tablet PO (18:17)
[2023-01-04] MEDS: Carvedilol 6.25 MG Tablet PO (18:17)
[2023-01-04] MEDS: Lisinopril 5 MG Tablet PO (19:57)
[2023-01-04] MEDS: Atorvastatin Calcium 40 MG Tablet PO (19:57)
[2023-01-05] VITALS (19 sets, daily range): BP systolic 93–146; BP diastolic 57–106; PULSE 49–85; RESP 14–22; TEMP 36.5–36.9; O2SAT 92–100; BMI 21.9
[2023-01-05 05:16] LABS: Hematocrit 47.5 % (40-54); Hemoglobin 16.2 g/dL (13.0-16.5); Mean Corp Hgb Conc 34.1 g/dL (32-36); Mean Corpuscular Hgb 32.9 pg (27.0-32.0); Mean Corpuscular Volume 96.5 fL (80-94); Mean Platelet Vol. 10.6 fl (6.2-12.0); Platelet Count 249 K/mm3 (150-450); RBC Distribution Width CV 13.6 % (11.6-14.6); RBC Distribution Width SD 48.6 fl (35.1-43.9); Red Blood Count 4.92 M/mm3 (4.6-6.2); White Blood Count 11.8 K/mm3 (4.4-11.0)
[2023-01-05 05:38] LABS: AST(SGOT) 145 U/L (15-37); Alanine Aminotransfer ALT/SGPT 43 U/L (16-61); Albumin, Serum 3.1 g/dL (3.2-5.0); Alkaline Phosphatase 69 U/L (45-117); Anion Gap 6 (5-15); BUN 8 mg/dL (7-18); BUN/Creat Ratio 10.6 RATIO (10-20); Calcium,Total 8.2 mg/dL (8.5-10.1); Chloride 105 mmol/L (98-107); Creatinine, Serum 0.76 mg/dL (0.70-1.30); EST Glomerular Filtration Rate 119 mL/min (>60); Est Glom Filt Rate - Afr Amer 144 mL/min (>60); Estimated Creatinine Clearance 132.95 ml/min; Globulin 3.2 g/dL (2.2-4.2); Glucose 124 mg/dL (74-106); Potassium 3.9 mmol/L (3.5-5.1); Protein, Total 6.3 g/dL (6.4-8.2); Sodium Level 136 mmol/L (136-145)
[2023-01-05 05:39] LABS: Phosphorus 2.3 mg/dL (2.5-4.9)
--- NOTE | 2023-01-05 08:09 | CRPHASE1_ITS ---
Patient Communication Patient Information Former Patient:: Phase I PHII Cardiac Rehab Discussed with Patient:: Yes Guide to Cardiac Rehab Given to Patient:: Yes Cardiac Rehab Facility Choice List Given to Patient:: Yes Communication to Cardiac Rehab Choice Program [facility] CR PHII:: Communication Given to CR Choice Program Other:: Communication Given to CR Licensed Bondsman:: Sharron Richardson Sessions:: 36 sessions - 3 days/wk, 12 weeks Cardiac Rehabilitation Info Program Information Cardiac Rehabilitation Program Information: Cardiac Rehab The cardiac rehab team at [facility] consists of highly skilled exercise physiologists, nurses, respiratory therapists and physicians working together with you. Our purpose is to help you have a full recovery and achieve the goals you set for yourself. Over the years many of our patients have returned to activities they assumed they would never do again! We can help restore your confidence and motivation to make lifestyle changes that can have a significant impact on your health and quality of life! We can help answer questions and concerns you may have about exercise, lifestyle, medications, diet, stress and anxiety which are common following a hospitalization. WE monitor ECG and vital signs during exercise and discuss your progress with you and report to your physician(s). Cardiac Rehab is proven to help reduce readmissions, improve functional capacity and lower recurrence of problems with your heart. Our Cardiac Rehab program is Certified by the [place] [employer]-Vascular [employer] Pulmonary [employer] (AACVPR) and Accredited by the [place] [employer] through our [facility]. You can contact us at . We invite you to call us with your questions or to get started in our program. If you have other questions or concerns be sure to ask your physician/provider during your follow-up visit. WE look forward to seeing you!
--- NOTE | 2023-01-05 08:13 | CRPH1.INST_ITS ---
General Education Discussed with Patient CAD and cardiac anatomy and function:: Patient communicates acknowledgment Explanation of diagnoses and procedures:: Patient communicates acknowledgment Sign/Symptoms of MS:: Patient communicates acknowledgment Antiplatelet therapy: Patient communicates acknowledgment Proper use of NTG-SL: Patient communicates acknowledgment Emergency procedures and activation of EMS: Patient communicates acknowledgment Compliance of all prescribed medications: Patient communicates acknowledgment Smoking Risk Factors Patient Nicotine/Smoking Risk Factors Are:: Cigarettes and Second-hand smoke Recommendations Recommendations Include:: Smoking cessation strategies/Smoking packet, Second- hand smoke recommendation and Previous smoker; encourage continued cessation Dyslipidemia Recommendations Recommendations Include:: Lipid profile not available, Reviewed NCEP/ATP guidelines and Therapeutic Lifestyle Change dietary guidelines Response Code Dyslipidemia Response Code:: Patient communicates acknowledgment Overweight/Obesity Response Code Overweight/Obesity:: Patient communicates acknowledgment Hypertension Recommendations Recommendations Include:: Maintain BP <130/85, Decrease/maintain normal body weight and Moderation of ETOH Response Code Hypertension:: Patient communicates acknowledgment Heart Disease Response Code Heart Disease Response Code:: Patient communicates acknowledgment Diabetes Response Code Diabetes:: Patient communicates acknowledgment Metabolic Syndrome Risk Factors Patient Metabolic Syndrome Risk Factors Are [3 of 5]:: Fasting blood sugar > 100 mg/dL, High triglyceride >150, Hypertension and Low HDL <40 [male] or < 50 [female] Recommendations Recommendations Include:: Does not meet criteria Response Code Metabolic Syndrome Response Code:: Patient communicates acknowledgment Sedentary Recommendations Recommendations Include:: Aerobic exercise 5-7 times/week for 20-30 minutes continuously, Benefits of regular exercise, Discussed home walking program and Monitored Outpatient Cardiac Rehab Response Code Sedentary Response Code:: Patient communicates acknowledgment Stress Risk Factors Patient Stress Risk Factors Are:: Patient denies stress as a risk factor Recommendations Recommendations Include:: Identification of stressors, and assessment of coping skills Response Code Stress Response Code:: Patient communicates acknowledgment
[2023-01-05] MEDS: Aspirin 81 MG TAB.CHEW PO (08:43)
[2023-01-05] MEDS: Thiamine Hydrochloride 100 MG Tablet PO (08:43)
[2023-01-05] MEDS: Spironolactone 25 MG Tablet 12.5 MG PO (08:44)
[2023-01-05] MEDS: Lisinopril 5 MG Tablet PO ×2 (08:44→21:10)
[2023-01-05] MEDS: Carvedilol 6.25 MG Tablet PO ×2 (08:44→17:04)
[2023-01-05] MEDS: Folic Acid 1 MG Tablet PO (08:44)
[2023-01-05] MEDS: Empagliflozin 25 MG Tablet PO (08:44)
[2023-01-05] MEDS: Clopidogrel Bisulfate 75 MG Tablet PO (08:45)
--- NOTE | 2023-01-05 09:30 | CASEMGMT ---
RN CM in to provide PCP list to patient. Patient voiced appreciation. RN CM discuss glucometer script at discharge and take to pharmacy of choice. RN CM also informed patient of over the counter glucometer at [facility] as well. Patient voiced understand. Patient had no further questions or concerns at this time. Script recieved for glucometer and placed on patient's chart with Green Sheet.
--- NOTE | 2023-01-05 10:26 | PN.CARD_ITS ---
Subjective Subjective Denies any complaints of chest pain or shortness of breath. Objective Data Vital Signs: Vital Signs Temp Pulse Resp BP Pulse Ox O2 Del Method O2 Flow Rate 98.4 F 75 22 H 125/80 H 97 Room Air 2 01/05/23 04:00 01/05/23 08:00 01/05/23 08:00 01/05/23 08:00 01/05/23 08:00 01/05/23 08:00 01/04/23 04:00 Oxygen Flow Rate (L/min) 2 Oxygen Delivery Method Room Air Weight: 165 lb 5.547 oz Body Mass Index (BMI) 21.9 Intake & Output: Intake and Output for Last 24 Hours 01/03/23 01/04/23 01/05/23 23:59 23:59 23:59 Intake Total 2167.50 / 2267.50 1100 / 1100 Output Total 200 / 200 200 / 200 Balance 1967.50 / 2067.50 900 / 900 Lab / Micro Data 01/05/23 05:05 01/05/23 05:05 Labs: Laboratory Results - last 24 hr 01/05/23 05:05: WBC 11.8 H, RBC 4.92, Hgb 16.2, Hct 47.5, MCV 96.5 H D, MCH 32.9 H, MCHC 34.1 D, RDW Std Deviation 48.6 H, RDW Coeff of Silvana 13.6, Plt Count 249, MPV 10.6, Sodium 136, Potassium 3.9, Chloride 105, Carbon Dioxide 25.0, Anion Gap 6, BUN 8, Creatinine 0.76, Estim Creat Clear Calc 132.95, Est GFR (MDRD) Af Amer 144, Est GFR (MDRD) Non-Af 119, BUN/Creatinine Ratio 10.6, Glucose 124 H, Calcium 8.2 L, Phosphorus 2.3 L, Magnesium 2.0, Total Bilirubin 0.80, AST 145 H, ALT 43, Alkaline Phosphatase 69, Total Protein 6.3 L, Albumin 3.1 L, Globulin 3.2, Albumin/Globulin Ratio 1.0 Rhythm Strip Rhythm Strip: Sinus Tach Rate: 100 Ectopy: None Cardiology Labs/Tests 01/05/23 05:05: WBC 11.8 H, RBC 4.92, Hgb 16.2, Hct 47.5, MCV 96.5 H D, MCH 32.9 H, MCHC 34.1 D, Plt Count 249, MPV 10.6, Sodium 136, Potassium 3.9, Chloride 105, Carbon Dioxide 25.0, Anion Gap 6, BUN 8, Creatinine 0.76, Est GFR (MDRD) Af Amer 144, Est GFR (MDRD) Non-Af 119, BUN/Creatinine Ratio 10.6, Glucose 124 H, Calcium 8.2 L, Phosphorus 2.3 L, Magnesium 2.0, Total Bilirubin 0.80 Rhythm: EKG: ECHO: Stress Test: Cardiac Cath: PCI: CT Surgery: Holter monitor: EPS: PPM: CXR: Chest CT Scan: Radiography Diagnostic Testing: Radiology Impression Echocardiogram 01/04/23 00:20 Interpretation Summary The estimated ejection fraction is 30 %. Mildly dilated left ventricle. Apical akinesis. Severe anterior and anterior septal hypokinesis. Global hypokinesis. Ordering Physician: Blane Hobbs Referring Physician: NO PCP Performed By: Marly España and Student Physical Exam Narrative Appears older for stated age. Comfortable. No apparent distress. Heart sounds 1 and 2 normal. No murmurs or rubs noted. Chest clear to auscultation bilat erally. Abdomen soft. Bowel sounds positive. Alert oriented x3. No ankle edema noted. Assessment & Plan Assessment/Plan (1) Non-STEMI (non-ST elevated myocardial infarction): PLAN: Status post PCI to the proximal LAD. Stable. Asymptomatic. Continue medical management. (2) Left ventricular systolic dysfunction (LVSD): PLAN: LV noted to be mildly dilated as well. Continue beta-blockers. HUMZA inhibitors. Aldactone. SGLT2 inhibitors. (3) Hypertension: PLAN: Controlled. (4) Nicotine dependence: PLAN: Counseled to quit. (5) Diabetes mellitus: PLAN: Elevated HbA1c. Follow as per internal medicine. (6) Dyslipidemia: PLAN: Atorvastatin. PLAN: Plan Likely home in the morning if he remains stable.
[2023-01-05 11:46] LABS: Bedside Glucose 115 mg/dL (74-106)
--- NOTE | 2023-01-05 15:37 | PCM.PN.HOSP ---
Reason for Visit Reason for Visit: Chest pain Subjective Subjective No issues overnight. We discussed the fact that he now appears to be diabetic. He indicated he is not surprised as he is 17 family members who are diabetic. He met with the dietitian for some education and we discussed the initiation of Jardiance which would be both beneficial for his heart and for his diabetes. No current needs identified. Objective Data Objective Data Vital Signs: Vital Signs Temp Pulse Resp BP Pulse Ox O2 Del Method O2 Flow Rate 98.4 F 49 L 14 93/57 L 97 Room Air 2 01/05/23 04:00 01/05/23 15:00 01/05/23 15:00 01/05/23 15:00 01/05/23 15:00 01/05/23 15:00 01/04/23 04:00 Oxygen Flow Rate (L/min) 2 Oxygen Delivery Method Room Air Weight: 75 kg Body Mass Index (BMI) 21.9 Intake & Output: Intake and Output for Last 24 Hours 01/03/23 01/04/23 01/05/23 23:59 23:59 23:59 Intake Total 2167.50 / 2267.50 1357 / 1357 Output Total 200 / 200 200 / 200 Balance 1967.50 / 2067.50 1157 / 1157 Lab / Micro Data 01/05/23 05:05 01/05/23 05:05 Labs: Laboratory Results - last 24 hr 01/05/23 05:05: WBC 11.8 H, RBC 4.92, Hgb 16.2, Hct 47.5, MCV 96.5 H D, MCH 32.9 H, MCHC 34.1 D, RDW Std Deviation 48.6 H, RDW Coeff of Silvana 13.6, Plt Count 249, MPV 10.6, Sodium 136, Potassium 3.9, Chloride 105, Carbon Dioxide 25.0, Anion Gap 6, BUN 8, Creatinine 0.76, Estim Creat Clear Calc 132.95, Est GFR (MDRD) Af Amer 144, Est GFR (MDRD) Non-Af 119, BUN/Creatinine Ratio 10.6, Glucose 124 H, Calcium 8.2 L, Phosphorus 2.3 L, Magnesium 2.0, Total Bilirubin 0.80, AST 145 H, ALT 43, Alkaline Phosphatase 69, Total Protein 6.3 L, Albumin 3.1 L, Globulin 3.2, Albumin/Globulin Ratio 1.0 01/05/23 11:28: POC Glucose 115 H Rhythm Strip Rhythm Strip: Sinus Tach Rate: 100 Ectopy: None Physical Exam Const alert, oriented x3, no apparent distress, average body habitus and well nourished Constitutional Narrative: Middle-aged, white male, sitting up in bed, appears much older than stated age, nontoxic, appears comfortable at this time, watching television HEENT head/scalp atraumatic and moist oral mucous membranes HEENT Narrative: Mallampati is 1-2, no thrush, dentition is extremely poor Head and Scalp: normocephalic Resp normal respiratory effort, no retractions, no use of accessory muscles and clear to auscultation bilaterally Resp Narrative: Diffusely diminished but clear Auscultation: Negative for rales, rhonchi or wheezes Cardio regular rate, regular rhythm, S1 normal heart sound, S2 normal heart sound, no murmurs, no rub, no gallops and no clicks GI normal to inspection, nondistended, normoactive bowel sounds, soft to palpation and non-tender Extremity no clubbing, cyanosis or edema Extremity Narrative: Pulses are 2+ Skin Skin Narrative: Right wrist over right radial artery appears to be nontender and no signs of ecchymosis-dressing is clean dry and intact Neuro oriented x3, moves all extremities and no focal motor deficits Speech: speech normal Psych affect normal Psych Narrative: Very pleasant, appropriately interactive Assessment & Plan Assessment/Plan (1) Non-STEMI (non-ST elevated myocardial infarction): (2) Left ventricular systolic dysfunction (LVSD): (3) Diabetes mellitus: (4) Dyslipidemia: (5) Hypertension: (6) Hypophosphatemia: PLAN: Plan NSTEMI -Continue aspirin 81 mg daily -Continue Plavix 75 mg daily -Continue Coreg 6.25 mg daily -Continue lisinopril 5 mg twice daily -Continue atorvastatin 40 mg nightly -Total cholesterol is 163/LDL is 108/HDL 27/triglycerides 138 -Cardiology is following-appreciate input Ischemic cardiomyopathy -Currently compensated -Echo from admission showed an EF of 30% with a mildly dilated LV and apical akinesis with severe anterior and anterior septal hypokinesis -Continue above medications -Aldactone added 12.5 mg p.o. twice daily -Continue Jardiance -Repeat echocardiogram after 6 to 8 weeks of goal-directed therapy to reassess ejection fraction DM-2 -Hemoglobin A1c was 7.6 -This is a new diagnosis however patient has multiple family members with diabetes -Dietitian met with patient with regards to diabetic diet -Jardiance initiated -Blood sugars are improved today Hypophosphatemia -Sodium Phos bolus given Hypertension -Continue Coreg, lisinopril, Aldactone as ordered -Patient does not carry a diagnosis of hypertension but his blood pressures have been consistently elevated during his hospital stay Alcohol use -Patient reports he drinks 2-3 beers occasionally throughout the week -Never had withdrawal symptoms -Does not drink daily Tobacco use/marijuana use -Recommend cessation -We will add nicotine patch if needed DVT Prophylaxis -cont Heparin ggt CODE STATUS -Full code Charges/Coding Visit Charges Inpatient E&M: 89817 Subs Hosp L2
--- NOTE | 2023-01-05 15:49 | PHA.DC ---
Pharmacy Counseling Note Patient Medication Counseling Notes: This [facility] was asked by nursing to educate patient regarding the new medications he is on. There is no discharge in at this time so the patient was counseled on his current medications: 1. Aspirin 81mg PO daily 2. Atorvastatin 40mg PO QHS 3. Clopidogrel 75mg PO daily 4. Carvedilol 6.25mg PO daily 5. Empagliflozin 25mg PO daily 6. Lisinopril 5mg PO BID 7. Spironolactone 12.5mg PO daily Patient understands that these may or may not be the medications he will be discharged on as adjustments could be made before discharge. All questions answered.
[2023-01-05 16:37] LABS: Bedside Glucose 113 mg/dL (74-106)
[2023-01-05] MEDS: Atorvastatin Calcium 40 MG Tablet PO (21:10)
[2023-01-05] MEDS: Zolpidem Tartrate 5 MG Tablet PO (21:14)
[2023-01-05 22:17] LABS: Bedside Glucose 96 mg/dL (74-106)
[2023-01-06 03:01] VITALS: BP 136/88; PULSE 82; RESP 18; TEMP 36.8; O2SAT 97
[2023-01-06 04:06] VITALS: BMI 20.7
[2023-01-06 07:00] LABS: Bedside Glucose 93 mg/dL (74-106)
[2023-01-06 07:15] LABS: Anion Gap 7 (5-15); BUN 7 mg/dL (7-18); BUN/Creat Ratio 9.6 RATIO (10-20); Calcium,Total 8.9 mg/dL (8.5-10.1); Chloride 105 mmol/L (98-107); Creatinine, Serum 0.73 mg/dL (0.70-1.30); EST Glomerular Filtration Rate 124 mL/min (>60); Est Glom Filt Rate - Afr Amer 150 mL/min (>60); Estimated Creatinine Clearance 131.22 ml/min; Glucose 89 mg/dL (74-106); Phosphorus 3.6 mg/dL (2.5-4.9); Potassium 3.7 mmol/L (3.5-5.1); Sodium Level 136 mmol/L (136-145)
[2023-01-06 09:01] VITALS: BP 144/88; PULSE 79; RESP 18; TEMP 36.6; O2SAT 99
[2023-01-06] MEDS: Spironolactone 25 MG Tablet 12.5 MG PO (09:06)
[2023-01-06] MEDS: Thiamine Hydrochloride 100 MG Tablet PO (09:06)
[2023-01-06] MEDS: Aspirin 81 MG TAB.CHEW PO (09:06)
[2023-01-06] MEDS: Lisinopril 5 MG Tablet PO (09:06)
[2023-01-06] MEDS: Folic Acid 1 MG Tablet PO (09:06)
[2023-01-06] MEDS: Empagliflozin 25 MG Tablet PO (09:07)
[2023-01-06] MEDS: Clopidogrel Bisulfate 75 MG Tablet PO (09:07)
[2023-01-06] MEDS: Carvedilol 6.25 MG Tablet PO (09:07)
--- NOTE | 2023-01-06 10:00 | EKG12_ITS ---
Test Reason : CHEST PAIN Blood Pressure : / mmHG Vent. Rate : 068 BPM Atrial Rate : 068 BPM P-R Int : 136 ms QRS Dur : 108 ms QT Int : 412 ms P-R-T Axes : 064 069 115 degrees QTc Int : 438 ms Normal sinus rhythm Anterolateral infarct , age undetermined Abnormal ECG No previous ECGs available Confirmed by MONTANA FALL, TASHI ([id number]), newspaper or periodical editor SAMUEL GRIFFIN ([id number]) on 01/09/2023 7:31:32 AM Referred By: NEIL Confirmed By:TASHI BOYLE MD
--- NOTE | 2023-01-06 10:53 | PCM.DC.SUM ---
Providers Date of Admission: 01/03/23 Date of Discharge: 01/06/23 Primary Care Physician: Misti Primary Care Phys Consultations 01/04/23 00:20 Consult: Cardiology Routine Consulting Provider: Sharron Richardson Reason for Consult: Chest Pain EMERGENT Consult: No MD Notified: Yes Date Notified: 01/03/23 Time Notified: 23:51 Method of Notification: ED Physician Initiated Reason For Visit: NSTEMI Diagnosis Discharge Diagnosis (1) Non-STEMI (non-ST elevated myocardial infarction): Status: Acute Code(s): I21.4 - Non-ST elevation (NSTEMI) myocardial infarction (2) Left ventricular systolic dysfunction (LVSD): Status: Acute Code(s): I51.9 - Heart disease, unspecified (3) Diabetes mellitus: Status: Acute Code(s): E11.9 - Type 2 diabetes mellitus without complications (4) Dyslipidemia: Status: Acute Code(s): E78.5 - Hyperlipidemia, unspecified (5) Hypertension: Status: Chronic Code(s): I10 - Essential (primary) hypertension (6) Hypophosphatemia: Status: Acute Code(s): E83.39 - Other disorders of phosphorus metabolism Medications at Discharge Home Medications aspirin 81 mg chewable tablet 81 mg PO DAILY@0800 #0 tabs 01/06/23 atorvastatin 40 mg tablet 40 mg PO QHS #30 tabs 01/06/23 carvedilol 6.25 mg tablet 12.5 mg (2 x 6.25 mg) PO BIDCM #120 tabs 01/06/23 clopidogrel 75 mg tablet 75 mg PO DAILY #30 tabs 01/06/23 empagliflozin 25 mg tablet (Jardiance) 25 mg PO DAILY #30 tabs 01/06/23 lisinopril 5 mg tablet 5 mg PO BID #30 tabs 01/06/23 spironolactone 25 mg tablet 12.5 mg (1/2 x 25 mg) PO DAILY #15 tabs 01/06/23 Hospital Course Procedures 2-D Echocardiogram, Cardiac catheterization, EKG and - (Chest x-ray) Summary of Care Provided Minutes Spent on Discharge: 37 Hospital Course: Mr. Foster is a 42-year-old male with a history of alcoholism and tobacco abuse who presented to the emergency department with a 3-day history of chest pain. Chest pain was localized on the left side of his chest and radiated to bilateral hands. It was worse on the left than the right. He described it as burning and tightening in his chest and was lasting for about 20 minutes at a time but had had few episodes on and off. The most recent episode had lasted for about 3 hours nonstop. On presentation he rated it as 8 out of 10 on a scale of 1-10. Vital signs on presentation showed temperature of 97.9, heart rate 90, blood pressure 160/105, respiratory 18 oxygen saturations are 98% on room air. CBC was overall unremarkable coags are normal. Chemistry panel was unremarkable. His initial troponin was 7592. Patient was admitted to the ICU for an NSTEMI. He received baby aspirin in the emergency department and was placed on a nitroglycerin drip and a heparin drip. Cardiology was consulted and took the patient to the [facility] [employer] Technician on 01/04/2023. He was found to have a 90% proximal LAD to lesion, 60% mid left circumflex lesion, 40% mid RCA lesion and a 50% mid RPDA lesion. [place] to the proximal LAD lesion was performed and the patient was started on aspirin, Plavix, Coreg, lisinopril, Aldactone, atorvastatin, and Jardiance. Patient's blood sugar was noted to be greater than 200 on the day after admission. An hemoglobin A1c was sent and he was found to be diabetic with a hemoglobin A1c of 7.6. Echocardiogram showed an EF of 30% with a mildly dilated LV and apical akinesis with severe anterior and anterior septal hypokinesis. With regards to his diabetes but dietitian was consulted and he met with them for information and diabetic education. He was discharged with a glucometer and for now is to test his blood sugars in the morning fasting and at some point the afternoon or evening nonfasting. Recommend that a repeat hemoglobin A1c be obtained in 3 to 6 months. He was discharged with Jardiance which should both help his diabetes and his LV dysfunction. Patient was monitored for 48 hours after intervention for any ectopy and none was identified. Prescriptions for the above medications were faxed to his local pharmacy at the time of discharge. He has a follow-up with cardiology on 01/24/2023. We also advised him to find a primary care physician that can help manage his hypertension hyperlipidemia along with his diabetes. We also gave him a referral to the [facility] clinic if he was I am able to find a primary care physician. We counseled him extensively with regards to tobacco cessation and he voiced understanding. He stated his father was a heavy smoker and quit cold turkey and had no issues. He feels he will be able to do the same. He was discharged home in stable condition on 01/06/2023. Discharge diagnoses: NSTEMI Ischemic cardiomyopathy DM-2-newly diagnosed Hypophosphatemia-resolved Hypertension Hyperlipidemia Alcohol use Tobacco abuse Marijuana use Physical Exam Const alert, oriented x3, no apparent distress, average body habitus and well nourished Constitutional Narrative: Middle-aged, white male, half dressed, walking around his hospital room, appears much older than stated age, nontoxic, appears comfortable at this time General Appearance: cooperative, comfortable, well kempt and well developed Orientation / Consciousness: awake, oriented to person and oriented to place Exam Limitations: no limitations Nutritional Appearance: thin HEENT normocephalic, head/scalp atraumatic, hearing grossly normal bilaterally and moist oral mucous membranes HEENT Narrative: Dentition is poor, Mallampati is 2, no thrush Eyes PERRL, EOMs intact bilaterally and conjunctivae normal Eyes Narrative: No scleral icterus Neck no lymphadenopathy and supple Resp normal respiratory effort, no retractions, no use of accessory muscles and clear to auscultation bilaterally Resp Narrative: Diffusely diminished but clear Auscultation: Negative for rales, rhonchi or wheezes Cardio regular rate, regular rhythm, S1 normal heart sound, S2 normal heart sound, no murmurs, no rub, no gallops and no clicks GI normal to inspection, nondistended, normoactive bowel sounds, soft to palpation and non-tender Extremity no clubbing, cyanosis or edema Extremity Narrative: Pulses are 2+ Skin no rashes or lesions noted, no wounds, skin turgor normal and no jaundice Neuro oriented x3, CN's II-XII intact bilaterally, moves all extremities and no focal motor deficits Sensorium / Orientation: awake, alert, oriented to person, oriented to place and oriented to time Speech: speech normal Motor Exam: strength 5/5 throughout Psych affect normal Psych Narrative: Very pleasant, appropriately interactive Weight / BMI Weight Weight: 71.1 kg Body Mass Index (BMI) 20.7 ABG / Lab / Microbiology Data 01/05/23 05:05 01/06/23 05:28 Laboratory: Laboratory Results - last 24 hr 01/05/23 11:28: POC Glucose 115 H 01/05/23 16:18: POC Glucose 113 H 01/05/23 21:08: POC Glucose 96 01/06/23 05:28: Sodium 136, Potassium 3.7, Chloride 105, Carbon Dioxide 24.0, Anion Gap 7, BUN 7, Creatinine 0.73, Estim Creat Clear Calc 131.22, Est GFR (MDRD) Af Amer 150, Est GFR (MDRD) Non-Af 124, BUN/Creatinine Ratio 9.6 L, Glucose 89, Calcium 8.9, Phosphorus 3.6 01/06/23 06:16: POC Glucose 93 D/C Instructions Discharge Diet: Low fat / Low cholesterol and 1800 Calorie Control Diet Discharge Activity: Return to Normal Activity Return to work on: 01/07/23 Meaningful Use Info Meaningful Use Diagnoses (Choose all that apply): AMI AMI/Post PCI/Angioplasty Aspirin given w/in 24hrs of arrival?: Yes ASA at discharge?: Yes Antiplatelet Therapy at Discharge:: Yes Statins at discharge?: Yes Barry/ARB at discharge?: Yes Beta Alejandro at discharge?: Yes Done w/ Acute TX measure.: Yes Documented LVEF (%): 30 Discharge Plan Admission Admit Date/Time: 01/03/23 23:35 Primary Reason for Your Visit: Chest Pain Attending Provider: Amirah Zhu Primary Care Provider: Care Physician,No Primary Consulting Providers: Blane Hobbs; Sharron Richardson Instructions Patient Instructions: Diabetic Retinopathy Risk Factors, Healthy Meals for Diabetes, Diabetes: Inspecting Your Feet, Diabetes: Meal Planning Additional Instructions / Restrictions: 1. We highly recommend that you find a primary care physician that you can follow-up for chronic medical problems including her diabetes. Aggressive treatment of your diabetes can help reduce your heart disease risk. 2. Highly recommend that you stop smoking Discharge Orders/Prescriptions Prescriptions: New atorvastatin 40 mg Tablet 40 mg PO QHS Qty: 30 0RF aspirin 81 mg Tablet,Chewable 81 mg PO DAILY@0800 Qty: 0 0RF carvedilol 6.25 mg Tablet 12.5 mg PO BIDCM Qty: 120 0RF clopidogrel 75 mg Tablet 75 mg PO DAILY Qty: 30 11RF Jardiance 25 mg Tablet 25 mg PO DAILY Qty: 30 2RF lisinopril 5 mg Tablet 5 mg PO BID Qty: 30 0RF spironolactone 25 mg Tablet 12.5 mg PO DAILY Qty: 15 0RF Referrals / Follow Up: Otilia Mcdermott [Non-Staff] - See Referral Note (Consider following up here if you are unable to find a primary care physician) Care Physician,No Primary [Primary Care Provider] - Janette Almonte PA [Med Staff - [facility]] - 01/24/23 1:00 pm Disposition Disposition (needs filled in before D/C Order can be placed): Home, Self Care Charges/Coding Visit Charges Inpatient E&M: 34138 Disch Hosp >30min
[2023-01-06 11:16] VITALS: BP 144/88; PULSE 79; RESP 18; TEMP 36.6; O2SAT 99
== END 2023-01-06 11:43 | disposition home or self-care (01) | DRG 247 ==
LOC: ED 22:31 → ICU 01-04 → PCU 01-05 16:45
PROVIDERS: Internal Medicine Cardiovascular Disease; Admitting Provider Hospitalist; Emergency Provider Emergency Medicine; Visit Provider Internal Medicine
DX: I21.4 Non-ST elevation (NSTEMI) myocardial infarction (principal); E83.39 Other disorders of phosphorus metabolism; E11.65 Type 2 diabetes mellitus with hyperglycemia; I24.9 Acute ischemic heart disease, unspecified; F15.90 Other stimulant use, unspecified, uncomplicated; F17.210 Nicotine dependence, cigarettes, uncomplicated; E78.5 Hyperlipidemia, unspecified; K30 Functional dyspepsia; F12.90 Cannabis use, unspecified, uncomplicated; I10 Essential (primary) hypertension; I25.5 Ischemic cardiomyopathy; Z79.82 Long term (current) use of aspirin; Z79.02 Long term (current) use of antithrombotics/antiplatelets; Z79.84 Long term (current) use of oral hypoglycemic drugs
CPT/HCPCS: 36415; 71045; 80048; 80053; 80061; 82962; 83036; 83735; 84100; 84484; 85025; 85027; 85610; 85730; 92928; 93005; 93306; 93454; 94762; 97803; 99152; 99153; 99284; 99406; C1769; J7030; J7050; A4216; C1725; C1874; C1887; C1894; C9600; Q9967

== ENCOUNTER 2023-12-16 15:59 | Inpatient (IN) | payer SELFPAY ==
[2023-12-16] VITALS (20 sets, daily range): BP systolic 155–182; BP diastolic 104–124; PULSE 72–95; RESP 14–20; TEMP 36.7–37; O2SAT 97–100; BMI 20.9; BMI 20.1
--- NOTE | 2023-12-16 16:20 | EKG12_ITS ---
Test Reason : Blood Pressure : / mmHG Vent. Rate : 082 BPM Atrial Rate : 082 BPM P-R Int : 164 ms QRS Dur : 100 ms QT Int : 372 ms P-R-T Axes : 073 056 099 degrees QTc Int : 434 ms Sinus rhythm with occasional Premature ventricular complexes Minimal voltage criteria for LVH, may be normal variant ( Wayne product ) Anteroseptal infarct (cited on or before 03-JAN-2023) T wave abnormality, consider lateral ischemia Abnormal ECG Confirmed by TASHI BOYLE MD ([id number]), news videotape editor GLORY PEACE ([id number]) on 12/17/2023 8:10:00 AM Referred By: Confirmed By:TASHI BOYLE MD
--- NOTE | 2023-12-16 16:21 | EDS_ITS ---
HPI History of Present Illness Chief Complaint: Chest Pain Informant: patient Narrative Narrative: 43-year-old male presenting to the emergency room with a chief complaint of chest pain. Patient has a history of diabetes hypertension and coronary artery disease (coronary artery stent placed January 07). Patient states at that time he experienced chest heaviness sweating and bilateral arm numbness. Yesterday he went to work where he was a bit stressful and around 1800 hrs. began to have pressure in his chest accompanied with diaphoresis. He went and rested and it improved but over the last 24 hours has continued to have a waxing and waning chest pressure. Sweating has not reoccurred. He notes that 4 months ago after his insurance lapsed who was not able to get his medications. He has gone without including the Plavix and aspirin since then. He occasionally smokes. He denies any leg symptoms. No nausea vomiting. [facility] Medical History Cardiomyopathy, ischemic Left ventricular systolic dysfunction (LVSD) Dyslipidemia Diabetes mellitus Nicotine dependence Hypertension Tobacco abuse Non-STEMI (non-ST elevated myocardial infarction) (01/03/23) Home Medications ?Medication ?Instructions ?Recorded ?Last Taken ?Type aspirin 81 mg chewable tablet 81 mg PO DAILY #90 tabs 01/24/23 10/17/23 Rx atorvastatin 40 mg tablet 40 mg PO QHS #90 tabs 01/24/23 Unknown Rx carvedilol 12.5 mg tablet 12.5 mg PO BIDCM #180 tabs 01/24/23 Unknown Rx clopidogrel 75 mg tablet 75 mg PO DAILY #90 tabs 01/24/23 Unknown Rx dapagliflozin propanediol 10 mg 10 mg PO DAILY #90 tabs 01/24/23 Unknown Rx tablet (Farxiga) lisinopril 5 mg tablet 5 mg PO BID #180 tabs 01/24/23 Unknown Rx spironolactone 25 mg tablet 12.5 mg (1/2 x 25 mg) PO DAILY #45 01/24/23 Unknown Rx tabs Allergy/AdvReac Type Severity Reaction Status Date / Time bupropion (From Wellbutrin) Allergy Swelling Verified 12/16/23 16:02 paroxetine (From Paxil) Allergy Swelling Verified 12/16/23 16:02 Family History Other Heart disease Surgical History Stented coronary artery (01/04/23) Social History Smoking Status: Current every day smoker tobacco type: cigarettes substance use type: former substance user Date of last use: Years ago, methamphetamine and marijuana ROS ROS ED Constitutional Constitutional ED: Denies chills, fever(s) or weight loss Eyes Eyes: Denies change in vision or diplopia ENT ENT ED: Denies ear pain, rhinorrhea or sore throat Cardiovascular Cardiovascular: Reports as per HPI and chest pain; Denies orthopnea, palpitations or racing heartbeat Respiratory/Chest Respiratory/Chest: Denies cough, dyspnea or orthopnea Gastrointestinal Gastrointestinal: Denies abdominal pain, diarrhea, nausea or vomiting Genitourinary Genitourinary ED: Denies dysuria, hematuria or urinary frequency Musculoskeletal Musculoskeletal: Denies arthralgias or myalgias Integumentary Reports other Details: Diaphoresis ; Denies abscess or rash Neurologic Neurologic: Denies headache(s) or weakness Psychiatric Psychiatric: Denies anxiety, depression, suicidal ideation or suicidal thoughts Endocrine Endocrinology: Denies polydipsia, polyphagia or polyuria Allergic/Immunologic Allergic/Immunologic ED: Denies mouth swelling, tongue swelling or urticaria EXAM Physical Exam Const Vital Signs: 12/16/23 16:00 12/16/23 16:15 12/16/23 16:32 Temperature 98.1 F Temperature Source Temporal Pulse Rate 87 81 Respiratory Rate 16 Respiratory Effort Normal Non-Labored Blood Pressure 182/124 H 181/120 H Blood Pressure Mean 143 Pulse Ox 99 Oxygen Delivery Method Room Air 12/16/23 16:47 12/16/23 16:55 Temperature Temperature Source Pulse Rate 84 88 Respiratory Rate Respiratory Effort Blood Pressure 173/121 H 178/119 H Blood Pressure Mean Pulse Ox Oxygen Delivery Method Positive well nourished and well developed General Appearance ED: well developed HEENT Reports normocephalic, head/scalp atraumatic and moist mucous membranes Eyes PERRL and EOMs intact bilaterally Neck no lymphadenopathy, supple and no JVD Resp normal respiratory effort and clear to auscultation bilaterally Cardio regular rate, regular rhythm and no murmurs GI normal to inspection, nondistended, normoactive bowel sounds and non-tender Palpation: soft Back/Spine no CVA tenderness and normal ROM Extremity normal to inspection General Extremety ED: Negative for edema General Extremity: Negative for edema Neuro oriented x3 and CN's II-XII intact bilaterally Sensorium / Orientation: alert Motor Exam: strength 5/5 throughout Psych mental status grossly normal Mood & Affect: Negative for depressed or tearful Skin no rashes or lesions noted and no wounds Heart Score History: Highly Suspicious ECG: Nonspecific Repolarization Age: </= 45 years Risk Factors: >/= 3 Risk Factors or History of CAD Troponin: >/=3 x Normal Limit Score: 7 MDM MDM MDM Narrative Medical decision making narrative: Differential diagnosis includes acute coronary syndrome aortic dissection hypertensive emergency/urgency reflux pleurisy pneumothorax pneumonia pulmonary embolism. Initial EKG does not show definitive changes of STEMI. White 11.5 creatinine 0.84 glucose 105 troponin significantly elevated 15,115. My independent interpretation of the chest x-ray is no acute process, normal mediastinal si lhouette. Patient received aspirin. Nitroglycerin helped the patient's pain did not fully resolve it. Repeat EKG was performed. Patient was placed on a heparin drip and nitroglycerin drip. I did discuss the case with our interventionalists on today Dr. Iqbal. Plan is admission into the hospital. History & Record Review Discussion w/independent historian: Patient Additional record(s) reviewed:: Prior inpatient record, Prior ED visit and Prior labs Lab Data Attestation: I reviewed the patient's lab results. Labs: Laboratory Results - last 24 hr 12/16/23 16:12 WBC 11.5 H RBC 5.38 Hgb 17.0 H Hct 50.1 MCV 93.1 MCH 31.6 MCHC 33.9 RDW Std Deviation 43.8 RDW Coeff of Silvana 12.9 Plt Count 343 MPV 10.2 Immature Gran % (Auto) 0.300 Neut % (Auto) 66.5 Lymph % (Auto) 19.5 Haines % (Auto) 10.5 H Eos % (Auto) 2.5 Baso % (Auto) 0.7 Absolute Neuts (auto) 7.6 Absolute Lymphs (auto) 2.24 Nucleated RBC % 0 Sodium 134 L Potassium 4.0 Chloride 101 Carbon Dioxide 26.0 Anion Gap 7 BUN 10 Creatinine 0.84 Estim Creat Clear Calc 111.60 Est GFR (MDRD) Af Amer 127 Est GFR (MDRD) Non-Af 105 BUN/Creatinine Ratio 11.9 Glucose 105 Calcium 9.5 Troponin I High Sens 87982 H* EKG Initial EKG: Attestation: I personally reviewed and interpreted this EKG as follows: Comments: Sinus rhythm with occasional PVCs and a ventricular rate of 82 bpm. There are some nonspecific ST changes laterally Follow-up EKG: Attestation: I personally reviewed and interpreted this EKG as follows: Comments: Normal sinus rhythm ventricular rate of 81 bpm. No definitive changes associated with STEMI. Management Discussion w/another healthcare provider: Hospitalist (Dr. Hobbs) and Cigar Brander (Dr. Iqbal) Critical Care Time Critical Care Time: Yes Critical care time (excluding procedures): 30-74 minutes (35 min), Including time spent:, Discussing w/Patient &/or Family/Carpenter Prototype, Discussing w/Consultants, Arranging Admission or Transfer and Performing Direct Patient Care at Bedside Discharge Plan Dx/Rx/DC Orders Clinical Impression: Hypertension, ACS (acute coronary syndrome) Disposition Disposition: Acute Care [facility]
--- NOTE | 2023-12-16 16:21 | ED.RN ---
PATIENT IS PRESCRIBED SEVERAL MEDICATIONS FOR WHICH HE STATES HE HAS NOT TAKEN SINCE JULY. REASON PROVIDED IS PATIENT LOST PRIMARY INSURANCE AND HAS AN INABILITY TO PAY. LAST TOOK [facility] IN OCTOBER.
[2023-12-16] MEDS: Aspirin 81 MG TAB.CHEW 324 MG PO (16:25)
[2023-12-16 16:28] LABS: Absolute Lymphocyte Count 2.24 X10^3/uL (0.83-4.51); Absolute Neutrophil Count 7.6 X10^3/uL (2.0-7.7); Basophil# 0.08 X10^3/uL; Basophil% 0.7 % (0-1); Eosinophil# 0.29 X10^3/uL; Eosinophils% 2.5 % (0-5); Hematocrit 50.1 % (40-54); Lymphocyte # 2.24 X10^3/ul (0.83-4.51); Lymphocyte % 19.5 % (19-41); Mean Corp Hgb Conc 33.9 g/dL (32-36); Mean Corpuscular Hgb 31.6 pg (27.0-32.0); Mean Corpuscular Volume 93.1 fL (80-94); Mean Platelet Vol. 10.2 fl (6.2-12.0); Monocyte% 10.5 % (0-10); NRBC Flagged by Analyzer 0 % (0-5); Neutrophil # 7.64 X10^3/uL (2.7-7.7); Neutrophil % 66.5 % (47-70); Platelet Count 343 K/mm3 (150-450); RBC Distribution Width CV 12.9 % (11.6-14.6); RBC Distribution Width SD 43.8 fl (35.1-43.9); Red Blood Count 5.38 M/mm3 (4.6-6.2); White Blood Count 11.5 K/mm3 (4.4-11.0)
[2023-12-16] MEDS: Nitroglycerin SL (ED/IMG/CATH) 0.4 MG TABLET SL ×3 (16:32→16:55)
--- NOTE | 2023-12-16 16:35 | RAD_ITS ---
EXAM: XR CHEST, 1 VIEW CLINICAL INDICATION: chest pain TECHNIQUE: Frontal view of the chest. COMPARISON: 01.03.23 FINDINGS: LUNGS AND PLEURAL SPACES: Unremarkable. No consolidation or edema. No pneumothorax. No effusion. HEART: Unremarkable. Cardiac silhouette not enlarged. MEDIASTINUM: Central airways and mediastinal contour are unremarkable. BONES/JOINTS: Unremarkable. No acute fracture. SOFT TISSUES: Unremarkable. RAD/Chest 1 View (Portable) IMPRESSION: No radiographic evidence of acute cardiopulmonary disease. Electronically Signed: Compa Troy MD at 17:08 EDT ,
[2023-12-16 16:52] LABS: Anion Gap 7 (5-15); BUN 10 mg/dL (7-18); BUN/Creat Ratio 11.9 RATIO (10-20); Calcium,Total 9.5 mg/dL (8.5-10.1); Chloride 101 mmol/L (98-107); Creatinine, Serum 0.84 mg/dL (0.70-1.30); EST Glomerular Filtration Rate 105 mL/min (>60); Est Glom Filt Rate - Afr Amer 127 mL/min (>60); Glucose 105 mg/dL (74-106); Sodium Level 134 mmol/L (136-145); Troponin-I HS (w/2H Reflex) 15115 pg/mL (3.0-78.0)
--- NOTE | 2023-12-16 16:54 | EKG12_ITS ---
Test Reason : REPEAT Blood Pressure : / mmHG Vent. Rate : 081 BPM Atrial Rate : 081 BPM P-R Int : 164 ms QRS Dur : 100 ms QT Int : 400 ms P-R-T Axes : 073 083 084 degrees QTc Int : 464 ms Normal sinus rhythm Anteroseptal infarct , age undetermined T wave abnormality, consider lateral ischemia Abnormal ECG Confirmed by TASHI BOYLE MD ([id number]), loan expeditor GLORY PEACE ([id number]) on 12/17/2023 8:10:15 AM Referred By: Confirmed By:TASHI BOYLE MD
[2023-12-16] MEDS: Heparin Injection (Vial) 5,000 UNIT/ML VIAL 4000 UNIT IV (17:03)
[2023-12-16] MEDS: Nitroglycerin Infusion 250 ML 3 MG CONT INF (17:04)
[2023-12-16] MEDS: HEPARIN/D5w 25,000 UNITS 25,000 UNITS/250 ML IV.SOLN. 9 UNITS CONT INF (17:05)
--- NOTE | 2023-12-16 17:11 | HP.PCM.HOS_ITS ---
HPI - General General Date of Admission: 12/16/23 Date of Service: 12/16/23 Chief Complaint: Chest pain HPI Narrative ELANA ROGERS, is a 43 M with a significant history of hypertension; diabetes mellitus; ischemic cardiomyopathy (echocardiogram on 01/04/2023); CAD s/p coronary stenting LAD in December 2022 who presents to the emergency department with substernal chest pain that started a day before presentation was back in the [facility]. Of note because patient lost his insurance about 4 months ago he has not been taking any medicine except occasional aspirin. At his work at around 18 00 a day before presentation patient had chest pain. He reported the chest pain was from his acid reflux. Associated with the pain was nausea and vomiting. The pain comes and go. Highest intensity of the pain was about 6 out of 10. The pain radiates to the ends of his chest close to his shoulders. Previously when his he had his heart attack he felt numbness in his bilateral arms. With no numbness he thought he was not having a heart attack. At the emergency department with nitroglycerin patient pain improved. His troponin was severely elevated at over 15,000. Emergency department doctor talked to cardiology interventional on-call who is considering patient for percutaneous intervention in AM. [facility] Medical History (Updated 12/16/23 @ 21:[address] Blane Hobbs MD) Nicotine dependence Diabetes mellitus Cardiomyopathy, ischemic Left ventricular systolic dysfunction (LVSD) Dyslipidemia Hypertension Tobacco abuse Non-STEMI (non-ST elevated myocardial infarction) (01/03/23) Home Medications ?Medication ?Instructions ?Recorded ?Last Taken ?Type aspirin 81 mg chewable tablet 81 mg PO DAILY #90 tabs 01/24/23 10/17/23 Rx atorvastatin 40 mg tablet 40 mg PO QHS #90 tabs 01/24/23 Unknown Rx carvedilol 12.5 mg tablet 12.5 mg PO BIDCM #180 tabs 01/24/23 Unknown Rx clopidogrel 75 mg tablet 75 mg PO DAILY #90 tabs 01/24/23 Unknown Rx dapagliflozin propanediol 10 mg 10 mg PO DAILY #90 tabs 01/24/23 Unknown Rx tablet (Farxiga) lisinopril 5 mg tablet 5 mg PO BID #180 tabs 01/24/23 Unknown Rx spironolactone 25 mg tablet 12.5 mg (1/2 x 25 mg) PO DAILY #45 01/24/23 Unknown Rx tabs Allergy/AdvReac Type Severity Reaction Status Date / Time bupropion (From Wellbutrin) Allergy Swelling Verified 12/16/23 16:02 paroxetine (From Paxil) Allergy Swelling Verified 12/16/23 16:02 Family History Other Heart disease Surgical History Stented coronary artery (01/04/23) Social History Smoking Status: Current every day smoker tobacco type: cigarettes substance use type: former substance user Date of last use: Years ago, methamphetamine and marijuana ROS ROS Narrative Pertinent positives and pertinent negatives as noted in HPI. All other systems were reviewed and are negative Vital Signs Vital Signs Vital Signs: 12/16/23 16:00 12/16/23 16:15 12/16/23 16:32 Temperature 98.1 F Temperature Source Temporal Pulse Rate 87 81 Respiratory Rate 16 Respiratory Effort Normal Non-Labored Blood Pressure 182/124 H 181/120 H Blood Pressure Mean 143 Pulse Ox 99 Oxygen Delivery Method Room Air 12/16/23 16:47 12/16/23 16:55 12/16/23 17:00 Temperature Temperature Source Pulse Rate 84 88 87 Respiratory Rate 16 Respiratory Effort Blood Pressure 173/121 H 178/119 H 172/112 H Blood Pressure Mean 132 Pulse Ox 99 Oxygen Delivery Method Room Air 12/16/23 17:04 Temperature Temperature Source Pulse Rate 87 Respiratory Rate Respiratory Effort Blood Pressure 167/112 H Blood Pressure Mean 136 Pulse Ox Oxygen Delivery Method Weight Weight: 70.307 kg Body Mass Index (BMI) 20.9 Physical Exam Narrative Physical exam: General: Well-nourished, well-developed. Head: Normocephalic, atraumatic, no tenderness Eyes: Vision is grossly intact. EOMI ENT, no trauma, moist mucous membranes, no rhinorrhea Neck: Nontender, No thyromegaly. CVS: Regular rate and rhythm. S1-S2 present. No murmur, gallop or rub. Respiratory : clear to auscultation bilaterally, chest wall nontender Abdomen: Soft, nontender, nondistended, normal bowel sounds, no masses : Deferred Back: Nontender, no CVA tenderness, no midline spinal tenderness, deformities, step-offs Extremities: Nontender full range of motion, no trauma Skin: Normal color, no trauma, abrasions Neuro: Alert, oriented, cranial nerves II through XII grossly intact. Psychiatry: Normal mood. Normal affect. Not depressed. Not anxious. Results Lab / Micro Data 12/16/23 16:12 12/16/23 16:12 Labs: Laboratory Results - last 24 hr 12/16/23 16:12: WBC 11.5 H, RBC 5.38, Hgb 17.0 H, Hct 50.1, MCV 93.1, MCH 31.6, MCHC 33.9, RDW Std Deviation 43.8, RDW Coeff of Silvana 12.9, Plt Count 343, MPV 10.2, Immature Gran % (Auto) 0.300, Neut % (Auto) 66.5, Lymph % (Auto) 19.5, M ade % (Auto) 10.5 H, Eos % (Auto) 2.5, Baso % (Auto) 0.7, Absolute Neuts (auto) 7.6, Absolute Lymphs (auto) 2.24, Nucleated RBC % 0, Sodium 134 L, Potassium 4.0, Chloride 101, Carbon Dioxide 26.0, Anion Gap 7, BUN 10, Creatinine 0.84, Estim Creat Clear Calc 111.60, Est GFR (MDRD) Af Amer 127, Est GFR (MDRD) Non-Af 105, BUN/Creatinine Ratio 11.9, Glucose 105, Calcium 9.5, Troponin I High Sens 02369 H* Imaging Radiology Impression Chest X-Ray 12/16/23 16:35 IMPRESSION: No radiographic evidence of acute cardiopulmonary disease. Electronically Signed: Compa Troy MD at 17:08 EDT , Assessment & Plan Assessment/Plan (1) ACS (acute coronary syndrome): (2) Cardiomyopathy, ischemic: (3) Hypertension: QUALIFIERS: Hypertension type: primary hypertension Qualified Code(s): I10 - Essential (primary) hypertension (4) Stented coronary artery: (5) NSTEMI, initial episode of care: PLAN: Plan Place on a monitored bed at [] Actual CXR image was independently visualized. No acute cardiopulmonary process was noted. Actual EKG tracing was independently visualized. EKG tracing showed[] Old records reviewed showed [] Non-STEMI ASA 81 mg p.o. daily ordered Nitroglycerin drip continued. Morphine as needed for pain ordered Will check lipid panel. Initial cardiac enzymes was 15,115. Serial cardiac enzymes trend. Coreg and lisinopril ordered. Stat EKG as needed for chest pain Cardiology consult. Hypertension Blood pressure is not within goal. Nitroglycerin drip as above. Trend. Diabetes mellitus Blood glucose is stable Farxiga ordered. Serial Accu-Cheks ordered. Hypoglycemia protocol ordered. Ischemic cardiomyopathy Stable; not requiring oxygen Guideline-directed medical therapy of lisinopril and Coreg initiated. Farxiga as above. Tobacco abuse Counseled. Time spent in the patient's overall evaluation,decision-making process, review of diagnostic data, adjustment of management, discussion with other providers, nursing and ancillary staff involved in patient's care documentation, 70 minutes. Advance care planning: Discussed with patient and family advanced directives as well as CODE STATUS. Explained various CODE STATUS: FULL CODE, DNR CCA, DNR CCA with no intubation, and DNR CC- and what each meant. Patient elected to be a full code with CPR and intubation if warranted. Order was placed. Surrogate decision maker is his roommate, Darian. Time spent on discussion 16 minutes. Charges/Coding Visit Charges Inpatient E&M: 23902 Init Hosp L3 Procedures Hospitalists Procedures: 21802 Advncd Care Plan 30 Min
[2023-12-16 17:36] LABS: International Normalized Ratio 0.9; Prothrombin Time (Protime)PT. 12.4 SECONDS (11.7-14.9)
[2023-12-16 17:37] LABS: Partial Thromboplast Time 29.3 Seconds (24.1-36.2)
[2023-12-16 18:25] LABS: Reflex Troponin-HS? (from REC) Y
--- NOTE | 2023-12-16 19:16 | ED.RN ---
Patient pain free at 181
--- NOTE | 2023-12-16 19:19 | EKG12_ITS ---
Test Reason : nstemi floor admission Blood Pressure : / mmHG Vent. Rate : 075 BPM Atrial Rate : 075 BPM P-R Int : 168 ms QRS Dur : 090 ms QT Int : 400 ms P-R-T Axes : 079 044 077 degrees QTc Int : 446 ms Normal sinus rhythm Anteroseptal infarct , age undetermined T wave abnormality, consider lateral ischemia Abnormal ECG When compared with ECG of 16-DEC-2023 16:58, MANUAL COMPARISON REQUIRED, DATA IS UNCONFIRMED Confirmed by MONTANA FALL, TASHI ([id number]), editor greeting card SAMUEL GRIFFIN ([id number]) on 12/18/2023 5:58:44 AM Referred By: Anjel Confirmed By:TASHI BOYLE MD
[2023-12-16 19:20] LABS: Troponin-I HS 16980 pg/mL (3.0-78.0)
[2023-12-16] MEDS: Atorvastatin Calcium 80 MG Tablet PO (22:16)
[2023-12-16] MEDS: Lisinopril 5 MG Tablet PO (22:16)
[2023-12-16 22:59] LABS: Partial Thromboplast Time 39.5 Seconds (24.1-36.2)
[2023-12-17] VITALS (42 sets, daily range): BP systolic 103–174; BP diastolic 62–116; PULSE 49–92; RESP 12–22; TEMP 36.6–37.1; O2SAT 12–100
[2023-12-17] MEDS: MELATONIN 3 MG TABLET PO ×2 (00:35→20:43)
[2023-12-17] MEDS: Acetaminophen 325 MG Tablet 650 MG PO (00:35)
[2023-12-17] MEDS: Heparin Injection (Vial) 5,000 UNIT/ML VIAL IV (00:36)
[2023-12-17 01:29] LABS: Troponin-I HS 24215 pg/mL (3.0-78.0)
--- NOTE | 2023-12-17 05:55 | ECHOD_ITS ---
Reason For Study: NSTEMI Procedure This was a 2D Doppler, Color Flow transthoracic echocardiogram. Exam performed portable in ICU/CCU. Left Ventricle Normal LV size. Mild apical noncompaction noted. The left ventricular ejection fraction is 35 %. Moderately severe segmental systolic dysfunction (see wall motion). Stage 3 diastolic dysfunction. [place] : Akinetic. Mid-Anterior : Akinetic. Anterior [place] : Akinetic. Mid-anteroseptal : Akinetic. The rest of the wall segments are hypokinetic. Right Ventricle Normal RV size. Normal systolic function. Atria Normal left atrium. Normal right atrium. Aortic Valve Trisinus/trileaflet aortic valve. Mild focal aortic valve thickening. Pulmonic Valve Normal pulmonic valve. Great Vessels Normal aortic root. The pulmonary artery is normal size. Normal inferior vena cava. Pericardium/Pleural No pericardial effusion. MMode/2D Measurements & Calculations LVIDd: 6.1 cm IVSd: 0.90 cm LVOT diam: 2.2 cm LVIDs: 4.6 cm LVPWd: 0.94 cm LVOT area: 3.6 cm2 FS: 24.8 % Ao root diam: 3.6 cm LAV(MOD-bp): 47.6 ml LVAd ap4: 37.4 cm2 LAV(MOD-bp) Indexed: 24.8 ml/m2 LVLd ap4: 8.6 cm LAV(MOD-sp2): 64.8 ml EDV(MOD-sp4): 137.4 ml LAV(MOD-sp4): 32.7 ml EDV(sp4-el): 138.1 ml LVAs ap4: 28.6 cm2 LVLs ap4: 7.8 cm ESV(MOD-sp4): 89.0 ml ESV(sp4-el): 89.0 ml EF(MOD-sp4): 35.3 % EF(sp4-el): 35.6 % SV(MOD-sp4): 48.5 ml SV(MOD-sp2): 40.6 ml LVAd ap2: 35.0 cm2 LVLd ap2: 9.3 cm EDV(MOD-sp2): 113.5 ml EDV(sp2-el): 112.2 ml LVAs ap2: 26.9 cm2 LVLs ap2: 8.2 cm ESV(MOD-sp2): 72.9 ml ESV(sp2-el): 74.7 ml EF(MOD-sp2): 35.8 % SV(sp4-el): 49.2 ml LA A4 area: 13.5 cm2 LA dimension(2D): 3.6 cm TAPSE: 1.5 cm RA A4 area: 10.2 cm2 Time Measurements MV dec time: 0.16 sec Doppler Measurements & Calculations MV E max angelo: 52.9 cm/sec Lat Peak E' Angelo: 8.9 cm/sec Med Peak E' Angelo: 7.9 cm/sec MV A max angelo: 24.9 cm/sec E/E' lat: 5.9 E/E' med: 6.7 MV E/A: 2.1 MV dec slope: 323.6 cm/sec2 Ao V2 max: 122.9 cm/sec LV V1 max: 89.6 cm/sec Ao max P.0 mmHg LV V1 max P.2 mmHg Ao V2 mean: 86.0 cm/sec LV V1 mean P.7 mmHg Ao mean P.4 mmHg LV V1 mean: 60.4 cm/sec Ao V2 VTI: 23.5 cm LV V1 VTI: 16.8 cm AV (velocity ratio): 0.72 BEE(I,D): 2.6 cm2 BEE(V,D): 2.7 cm2 SV(LVOT): 61.2 ml PA V2 max: 90.3 cm/sec PA max PG (full): 0.61 mmHg ECHO/Echo Complete Interpretation Summary The left ventricular ejection fraction is 35 %. Normal LV size. Moderately severe segmental systolic dysfunction (see wall motion). Stage 3 diastolic dysfunction. Ordering Physician: Blane Hobbs Performed By: Jessica Dela Cruz RDCS and Student
[2023-12-17 06:41] LABS: Hematocrit 44.6 % (40-54); Hemoglobin 14.9 g/dL (13.0-16.5); Mean Corp Hgb Conc 33.4 g/dL (32-36); Mean Corpuscular Hgb 31.4 pg (27.0-32.0); Mean Corpuscular Volume 93.9 fL (80-94); Mean Platelet Vol. 10.2 fl (6.2-12.0); Platelet Count 297 K/mm3 (150-450); RBC Distribution Width CV 12.7 % (11.6-14.6); RBC Distribution Width SD 44.6 fl (35.1-43.9); Red Blood Count 4.75 M/mm3 (4.6-6.2); White Blood Count 9.3 K/mm3 (4.4-11.0)
[2023-12-17 06:49] LABS: Cholesterol 205 mg/dL (200); High Density Lipoprotein 61 mg/dL; Triglycerides 101 mg/dL; Very Low Density Lipoprotein 20 mg/dL (5-40)
[2023-12-17 07:00] LABS: Partial Thromboplast Time 59.5 Seconds (24.1-36.2)
[2023-12-17 07:04] LABS: Anion Gap 3 (5-15); BUN 7 mg/dL (7-18); BUN/Creat Ratio 9.7 RATIO (10-20); Calcium,Total 8.7 mg/dL (8.5-10.1); Chloride 104 mmol/L (98-107); Creatinine, Serum 0.72 mg/dL (0.70-1.30); EST Glomerular Filtration Rate 125 mL/min (>60); Est Glom Filt Rate - Afr Amer 151 mL/min (>60); Estimated Creatinine Clearance 127.04 ml/min; Glucose 116 mg/dL (74-106); Potassium 3.7 mmol/L (3.5-5.1); Sodium Level 134 mmol/L (136-145)
--- NOTE | 2023-12-17 07:21 | CON.PCM.CA_ITS ---
Assessment & Plan Assessment/Plan (1) NSTEMI, initial episode of care: PLAN: He presents with chest discomfort and is noted to have a non-ST elevation myocardial infarction. He has been appropriately treated with aspirin clopidogrel as well as heparin. Recommendation be for him to undergo a cardiac catheterization. The risk benefits alternatives have been explained to him he understands and agrees to proceed and depending on the findings further recommendations will be made. (2) Cardiomyopathy, ischemic: PLAN: He does have evidence of ischemic cardiomyopathy his estimated ejection fraction was noted to be 30%. He does have some segmental wall motion abnormalities. An echocardiogram will be repeated to assess his ventricular function and depending on the findings further recommendations made. (3) Hypertension: QUALIFIERS: Hypertension type: primary hypertension Qualified Code(s): I10 - Essential (primary) hypertension PLAN: His blood pressure appears to be fairly decent at this time. I would not recommend that we make any major changes. Hopefully he will be more compliant after discharge. Thank you for allowing me to participate in the care of your patient. Please don't hesitate to call if any issues arise. HPI Consult Data Date of Consult: 12/17/23 HPI Narrative HPI Narrative: ELANA ROGERS, is a 43 M who presents to the emergency room with complaints of chest discomfort. He says that he has also been under some stressful working situation. He developed chest discomfort as well as bilateral discomfort and so presented to the emergency room because it reminded him of his condition last year. He had presented to the hospital in December 2022 with chest discomfort troponins were noted to be elevated and he underwent a cardiac catheterization which demonstrated 90% stenosis of his proximal LAD, 60% stenosis of his mid circumflex, 40% stenosis of his mid RCA, 50% stenosis of his mid RPDA. Patient did undergo stenting of his LAD. He was discharged home on aspirin, clopidogrel, carvedilol, lisinopril, Jardiance, spironolactone, aspirin and atorvastatin. His last office visit was in May 2023. Prior to that he had denied any paroxysmal nocturnal dyspnea orthopnea he has been questionable with his social habits. Unfortunately he has not been taking his medications as prescribed. He was noted to have severe left ventricular systolic dysfunction. In the emergency room he was noted to have markedly elevated troponins, EKG demonstrating lateral T wave inversions and he was admitted to the intensive care unit started on nitroglycerin as well as heparin pending cardiology triage. [facility] Medical History Nicotine dependence Diabetes mellitus Cardiomyopathy, ischemic Left ventricular systolic dysfunction (LVSD) Dyslipidemia Hypertension Tobacco abuse Non-STEMI (non-ST elevated myocardial infarction) (01/03/23) Home Medications ?Medication ?Instructions ?Recorded ?Last Taken ?Type aspirin 81 mg chewable tablet 81 mg PO DAILY #90 tabs 01/24/23 10/17/23 Rx atorvastatin 40 mg tablet 40 mg PO QHS #90 tabs 01/24/23 Unknown Rx carvedilol 12.5 mg tablet 12.5 mg PO BIDCM #180 tabs 01/24/23 Unknown Rx clopidogrel 75 mg tablet 75 mg PO DAILY #90 tabs 01/24/23 Unknown Rx dapagliflozin propanediol 10 mg 10 mg PO DAILY #90 tabs 01/24/23 Unknown Rx tablet (Farxiga) lisinopril 5 mg tablet 5 mg PO BID #180 tabs 01/24/23 Unknown Rx spironolactone 25 mg tablet 12.5 mg (1/2 x 25 mg) PO DAILY #45 01/24/23 Unknown Rx tabs Allergy/AdvReac Type Severity Reaction Status Date / Time bupropion (From Wellbutrin) Allergy Swelling Verified 12/16/23 16:02 paroxetine (From Paxil) Allergy Swelling Verified 12/16/23 16:02 Family History Other Heart disease Surgical History Stented coronary artery (01/04/23) Social History Smoking Status: Current every day smoker tobacco type: cigarettes substance use type: former substance user Date of last use: Years ago, methamphetamine and marijuana ROS Constitutional Constitutional: Denies fever(s) or weight loss Eyes Eyes: Reports systems reviewed and no addt'l complaints, except as documented ENT HEENT: Reports systems reviewed and no addt'l complaints, except as documented Cardiovascular Cardiovascular: Reports chest pain at rest and dyspnea on exertion; Denies chest pain with activity, dyspnea at rest, edema, palpitations or paroxysmal nocturnal dyspnea Respiratory/Chest Respiratory/Chest: Denies dyspnea on exertion, productive cough, shortness of breath at rest or shortness of breath with exertion Gastrointestinal Gastrointestinal: Denies change in bowel habits, nausea, vomiting or weight changes Genitourinary Genitourinary: Denies difficulty urinating Musculoskeletal Musculoskeletal: Denies joint stiffness or muscle weakness Integumentary Integumentary: Denies lesions Neurologic Neurologic: Denies dizziness or syncope Psychiatric Psychiatric: Denies anxiety Endocrine Endocrinology: Denies excessive sweating or fatigue Hematologic/Lymphatic Hematologic/Lymphatic: Denies anemia Allergic/Immunologic Allergic/Immunologic: Denies seasonal rhinorrhea Physical Exam Const alert, oriented x3 and no apparent distress General Appearance: cooperative HEENT hearing grossly normal bilaterally Head and Scalp: atraumatic Eyes EOMs intact bilaterally Neck General: normal visual inspection Chest inspection of chest normal and palpation of chest normal Resp normal respiratory effort Auscultation: clear to auscultation bilaterally Cardio regular rate, regular rhythm, S1 normal heart sound and S2 normal heart sound Jugular Venous Distention: JVD GI normal to inspection, nondistended, normoactive bowel sounds Extremity normal capillary refill and no pedal edema Peripheral Pulses: Yes pulses 2+ throughout and femoral pulses present Skin no rashes or lesions noted Neuro oriented x3 and CN's II-XII intact bilaterally Psych Appearance: grossly normal and appropriate Risk Stratification Risk Stratification Applicable: Yes Age >/= 65: No >/= 3 CAD Risk Factors (HTN, HLD, DM, family hx of CAD, or current smoker): Yes Aspirin Use in the Past 7 Days: No Severe Angina (>/= episodes in 24 hours): Yes EKG ST Changes >/= 0.5mm: No Positive Cardiac Marker: Yes LUCIANA Risk Stratification Score: 3 LUCIANA % Risk: 13% Risk Objective Data Vital Signs: Vital Signs Temp Pulse Resp BP Pulse Ox O2 Del Method 98.7 F 68 16 133/86 H 99 Room Air 12/17/23 04:00 12/17/23 07:00 12/17/23 07:00 12/17/23 07:00 12/17/23 07:00 12/17/23 07:00 Oxygen Delivery Method Room Air Weight: 151 lb 3.794 oz Body Mass Index (BMI) 20.0 Intake & Output: Intake and Output for Last 24 Hours 12/15/23 12/16/2324 23:59 23:59 23:59 Intake Total 134.30 / 143.30 202.83 / 202.83 Output Total 250 / 500 250 / 250 Balance -115.70 / -356.70 -47.17 / -47.17 Lab / Micro Data 12/17/23 06:20 12/17/23 06:20 Labs: Laboratory Results - last 24 hr 12/16/23 16:12: WBC 11.5 H, RBC 5.38, Hgb 17.0 H, Hct 50.1, MCV 93.1, MCH 31.6, MCHC 33.9, RDW Std Deviation 43.8, RDW Coeff of Silvana 12.9, Plt Count 343, MPV 10.2, Immature Gran % (Auto) 0.300, Neut % (Auto) 66.5, Lymph % (Auto) 19.5, M ade % (Auto) 10.5 H, Eos % (Auto) 2.5, Baso % (Auto) 0.7, Absolute Neuts (auto) 7.6, Absolute Lymphs (auto) 2.24, Nucleated RBC % 0, Sodium 134 L, Potassium 4.0, Chloride 101, Carbon Dioxide 26.0, Anion Gap 7, BUN 10, Creatinine 0.84, Estim Creat Clear Calc 111.60, Est GFR (MDRD) Af Amer 127, Est GFR (MDRD) Non-Af 105, BUN/Creatinine Ratio 11.9, Glucose 105, Calcium 9.5, Troponin I High Sens [id number] H* 12/16/23 17:05: PT 12.4, INR 0.9, APTT 29.3 12/16/23 18:48: Troponin I High Sens [id number] H* 12/16/23 22:25: APTT 39.5 H, Troponin I High Sens [id number] H* 12/17/23 06:20: WBC 9.3, RBC 4.75, Hgb 14.9, Hct 44.6, MCV 93.9, MCH 31.4, MCHC 33.4, RDW Std Deviation 44.6 H, RDW Coeff of Silvana 12.7, Plt Count 297, MPV 10.2, APTT 59.5 H, Sodium 134 L, Potassium 3.7, Chloride 104, Carbon Dioxide 27.0, A nion Gap 3 L, BUN 7, Creatinine 0.72, Estim Creat Clear Calc 127.04, Est GFR (MDRD) Af Amer 151, Est GFR (MDRD) Non-Af 125, BUN/Creatinine Ratio 9.7 L, G lucose 116 H, Calcium 8.7, Triglycerides 101, Cholesterol 205 H, LDL Cholesterol 124, VLDL Cholesterol 20, HDL Cholesterol 61 Cardiology Labs/Tests 12/16/23 16:12: WBC 11.5 H, RBC 5.38, Hgb 17.0 H, Hct 50.1, MCV 93.1, MCH 31.6, MCHC 33.9, Plt Count 343, MPV 10.2, Immature Gran % (Auto) 0.300, Neut % (Auto) 66.5, Lymph % (Auto) 19.5, [place] % (Auto) 10.5 H, Eos % (Auto) 2.5, Baso % (Auto) 0.7, Absolute Neuts (auto) 7.6, Nucleated RBC % 0, Sodium 134 L, Potassium 4.0, Chloride 101, Carbon Dioxide 26.0, Anion Gap 7, BUN 10, Creatinine 0.84, Est GFR (MDRD) Af Amer 127, Est GFR (MDRD) Non-Af 105, BUN/Creatinine Ratio 11.9, Glucose 105, Calcium 9.5 12/16/23 17:05: PT 12.4, INR 0.9, APTT 29.3 12/16/23 22:25: APTT 39.5 H 12/17/23 06:20: WBC 9.3, RBC 4.75, Hgb 14.9, Hct 44.6, MCV 93.9, MCH 31.4, MCHC 33.4, Plt Count 297, MPV 10.2, APTT 59.5 H, Sodium 134 L, Potassium 3.7, Chloride 104, Carbon Dioxide 27.0, Anion Gap 3 L, BUN 7, Creatinine 0.72, Est GFR (MDRD) Af Amer 151, Est GFR (MDRD) Non-Af 125, BUN/Creatinine Ratio 9.7 L, G lucose 116 H, Calcium 8.7, Triglycerides 101, Cholesterol 205 H, LDL Cholesterol 124, VLDL Cholesterol 20, HDL Cholesterol 61 Rhythm: EKG: ECHO: Stress Test: Cardiac Cath: PCI: CT Surgery: Holter monitor: EPS: PPM: CXR: Chest CT Scan: Radiography Diagnostic Testing: Radiology Impression Chest X-Ray 12/16/23 16:35 IMPRESSION: No radiographic evidence of acute cardiopulmonary disease. Electronically Signed: Compa Troy MD at 17:08 EDT ,
--- NOTE | 2023-12-17 07:37 | PN.HOSP_ITS ---
Reason for Visit Reason for Visit: Chest pain Subjective Subjective Mr. Foster is a 43-year-old male who presented to the emergency department [facility] on 12/16/2023 with chest pain. He does have previous MA with stenting in December 2022 to the LAD. He presented with substernal chest pain that started the day prior to presentation. He lost his insurance about 4 months ago so he has not been taking any of his medications except for an occasional aspirin. He was at work at the time of symptom onset. He rated the intensity of 6 out of 10 and his pain radiated to both of his shoulders. Vital signs on presentation showed a temperature of 98.1, heart rate 87, respiratory 16, blood pressure was 182/124 and pulse ox was 99% on room air. CBC showed a mild leukocytosis and erythrocytosis which have since resolved. Coags were normal. His chemistry panel was overtly unremarkable. His initial troponin was found to be 15,115 and trended up to a peak of 24,215. The case was discussed by the emergency department with interventional cardiology who recommended admitting the patient and starting a nitro drip as well as a heparin drip and plan was for cardiac catheterization in the a.m. Patient denies any current chest pain. He states it has been about 4 months since he has been on a medication for this. I did discuss with him that social work is aware and they will be working on trying to help facilitate getting his meds at discharge. He also reports that he has been under extra stress lately and he thinks this contributed as well. Objective Data Objective Data Vital Signs: Vital Signs Temp Pulse Resp BP Pulse Ox O2 Del Method 98.7 F 67 16 128/86 H 99 Room Air 12/17/23 04:00 12/17/23 07:15 12/17/23 07:00 12/17/23 07:15 12/17/23 07:00 12/17/23 07:00 Oxygen Delivery Method Room Air Weight: 68.6 kg Body Mass Index (BMI) 20.0 Intake & Output: Intake and Output for Last 24 Hours 12/15/23 12/16/23 12/17/23 23:59 23:59 23:59 Intake Total 134.30 / 143.30 203.58 / 203.58 Output Total 250 / 500 250 / 250 Balance -115.70 / -356.70 -46.42 / -46.42 Lab / Micro Data 12/17/23 06:20 12/17/23 06:20 Labs: Laboratory Results - last 24 hr 12/16/23 16:12: WBC 11.5 H, RBC 5.38, Hgb 17.0 H, Hct 50.1, MCV 93.1, MCH 31.6, MCHC 33.9, RDW Std Deviation 43.8, RDW Coeff of Silvana 12.9, Plt Count 343, MPV 10.2, Immature Gran % (Auto) 0.300, Neut % (Auto) 66.5, Lymph % (Auto) 19.5, M ade % (Auto) 10.5 H, Eos % (Auto) 2.5, Baso % (Auto) 0.7, Absolute Neuts (auto) 7.6, Absolute Lymphs (auto) 2.24, Nucleated RBC % 0, Sodium 134 L, Potassium 4.0, Chloride 101, Carbon Dioxide 26.0, Anion Gap 7, BUN 10, Creatinine 0.84, Estim Creat Clear Calc 111.60, Est GFR (MDRD) Af Amer 127, Est GFR (MDRD) Non-Af 105, BUN/Creatinine Ratio 11.9, Glucose 105, Calcium 9.5, Troponin I High Sens 17619 H* 12/16/23 17:05: PT 12.4, INR 0.9, APTT 29.3 12/16/23 18:48: Troponin I High Sens 07002 H* 12/16/23 22:25: APTT 39.5 H, Troponin I High Sens 13556 H* 12/17/23 06:20: WBC 9.3, RBC 4.75, Hgb 14.9, Hct 44.6, MCV 93.9, MCH 31.4, MCHC 33.4, RDW Std Deviation 44.6 H, RDW Coeff of Silvana 12.7, Plt Count 297, MPV 10.2, APTT 59.5 H, Sodium 134 L, Potassium 3.7, Chloride 104, Carbon Dioxide 27.0, A nion Gap 3 L, BUN 7, Creatinine 0.72, Estim Creat Clear Calc 127.04, Est GFR (MDRD) Af Amer 151, Est GFR (MDRD) Non-Af 125, BUN/Creatinine Ratio 9.7 L, G lucose 116 H, Calcium 8.7, Triglycerides 101, Cholesterol 205 H, LDL Cholesterol 124, VLDL Cholesterol 20, HDL Cholesterol 61 Radiography Diagnostic Testing: Radiology Impression Chest X-Ray 12/16/23 16:35 IMPRESSION: No radiographic evidence of acute cardiopulmonary disease. Electronically Signed: Compa Troy MD at 17:08 EDT Reading Location ID and State: [facility] / [place] , Service support , Physical Exam Const alert, oriented x3, no apparent distress and average body habitus; Negative for healthy appearing Constitutional Narrative: Middle-aged, white male, lying in bed, appears comfortable, appears older than stated age, appears nontoxic HEENT head/scalp atraumatic and moist oral mucous membranes HEENT Narrative: Dentition is poor, Mallampati is 2, no thrush Head and Scalp: normocephalic Resp normal respiratory effort, no retractions, no use of accessory muscles and clear to auscultation bilaterally Resp Narrative: Diminished but clear Auscultation: Negative for rales, rhonchi or wheezes Cardio regular rate, regular rhythm, S1 normal heart sound, S2 normal heart sound, no murmurs, no rub, no gallops and no clicks GI normal to inspection, nondistended, normoactive bowel sounds, soft to palpation and non-tender Extremity no clubbing, cyanosis or edema Extremity Narrative: Radial pulses and pedal pulses are 2+ bilaterally Neuro oriented x3, moves all extremities and no focal motor deficits Speech: speech normal Psych affect normal Psych Narrative: Pleasant, eye contact is good, interacts appropriately Assessment & Plan Assessment/Plan (1) NSTEMI, initial episode of care: PLAN: Plan NSTEMI -Peak troponin greater than 24,000 -Patient with FEDERICO to LAD in December 2022 but has not been taking dual antiplatelet therapy for about 3 to 4 months now due to insurance reasons -Continue aspirin 81 mg daily -Continue Coreg 12.5 mg daily -Continue lisinopril 5 mg twice daily -Continue atorvastatin 80 mg mg nightly -Total cholesterol is 205/LDL is 124/HDL 61/triglycerides 101 -Check hemoglobin A1c -Echocardiogram is pending -Cardiology consultation is pending and anticipate cardiac catheterization today History of ischemic cardiomyopathy -Currently compensated -Previous echo from 12/2022 Echo showed an EF of 30% with a mildly dilated LV and apical akinesis with severe anterior and anterior septal hypokinesis -Echocardiogram is pending -Continue above medications -Aldactone added 12.5 mg p.o. twice daily -Continue Jardiance 25 mg daily DM-2 -Hemoglobin A1c was 7.21 December 2022 with repeat pending -Continue home Jardiance -Cardiac/carb controlled diet Hypertension -Continue Coreg and lisinopril History of tobacco abuse -Patient has quit -Recommend ongoing cessation DVT Prophylaxis -cont Heparin ggt CODE STATUS -Full code Charges/Coding Visit Charges Inpatient E&M: 18569 Subs Hosp L2
[2023-12-17] MEDS: Aspirin 81 MG TAB.CHEW PO (07:38)
[2023-12-17] MEDS: Carvedilol 12.5 MG Tablet PO ×2 (07:38→16:19)
[2023-12-17] MEDS: Lisinopril 5 MG Tablet PO (07:41)
[2023-12-17 08:07] LABS: Hemoglobin A1c 4.7 % (3.8-5.6)
[2023-12-17 08:13] LABS: Bedside Glucose 110 mg/dL (74-106)
[2023-12-17 11:20] LABS: Bedside Glucose 113 mg/dL (74-106)
--- NOTE | 2023-12-17 12:30 | CASEMGMT ---
CARINA RANKIN Assessment: Face to Face with pt for initial transition planning/care coordination assessment. CARINA RANKIN introduced self and role at [facility], pt voices understanding and consents to assessment. Pt sleeping in no distress upon entering room. Pt is A&O x4 and answers all questions appropriately at this time. Care providers, pharmacy, and demographics verified/updated. Admitting Dx: NSTEMI PCP: Deonte, provided brochure with local PCP options. Specialists:Deonte Preferred Pharmacy: [facility] Retail pharmacy Insurance: Self Pay Prescription Benefit: no, would like to use prescription assistance program. LNOK: Aaron - Father, has a roommate - Dairan but does not have phone number for him at this time. Living Arrangements: Pt lives with roommate in a 2 story with 1 step to enter. Pt states I with ADLs and IADLs. Transportation: Pt walks places, if needs transportation roommate able to drive him. Roommate will transport pt home at time of DC. DME: Glucometer and supplies. HHC/SNF: Denies Hx of. Pt states uses marijuana on occasion, drinks 3-4 times a week, smokes 4 cigarettes a day. Pt states he checks his BS, not currently taking any medication due to no insurance and cannot afford medications. Pt reports lost his job and insurance, will take a year at current employer before he is able to get insurance coverage. Discussed applying for medicaid, pt stated he was seen by someone this morning for it and they are working on it. Pt interested in med assistance programs available, will notify SW. Pt states no further concerns/needs. CM to follow. Advised pt to ask CM if any further question/concerns/needs arise, voices understanding. Pt Goal: Home Plan: Home, will follow plan of care and set up with [facility] prescription assistance. Cheryle LIM CM
[2023-12-17] MEDS: 0.9% Normal Saline (1000mL) 1,000 ML 15 ML IV (13:13)
--- NOTE | 2023-12-17 13:21 | NURSING ---
Patient off floor to geoscience laboratory technician at this time. Report given to [employer] farm laborer RN
--- NOTE | 2023-12-17 14:31 | CL.I_ITS ---
Patient Name: ELANA ROGERS Study Date: 12/17/2023 Performing: Harshil Iqbal MD Ht: 73 inches 185.42 cm : 1980 Wt: 151.24 lbs 68.6 kg Age: 43 Gender: male BSA: 1.91 PROCEDURE(S) PERFORMED IC12-(81155/C9600)FEDERICO W/WO PTCA, SINGLE CORONARY ARTERY CLINICAL PROFILE AND CO-MORBIDITIES Indications: NSTEMI Heart Failure: None CONCLUSIONS Successful FEDERICO to mLCx RECOMMENDATIONS DESCRIPTION OF PROCEDURE The patient arrived to the procedure lab. The risks and benefits of the procedure as well as a full description of our services here and current unavailability of surgical backup were fully explained to the patient and/or their significant other prior to the catheterization. The Timeout was completed, verifying the correct patient and procedure. The patient's procedural site was prepped and draped in the usual fashion. Local anesthetic was given subcutaneously to right radial region with Lidocaine 2% Using a modified Seldinger technique,arterial access was obtained via the right radial artery, a 6Fr sheath was inserted. Left Coronary Artery selective angiography was performed in multiple views using a 5 Fr. 4.0 [place] catheter. Right Coronary Artery selective angiography was then performed in multiple views using a 5 Fr. 4.0 [place] catheter. Left Ventriculography was performed in SPENCE projection using a 5 Fr. Pigtail catheter.The images were reviewed and options discussed. A decision was then made to proceed with an Intervention, IVUS or other adjunct procedure. XB 3.0 Guide catheter was inserted and engaged into the LCA. BMW Guide wire was advanced to the Circumflex. [place] Blanco 2.25x15 Drug Eluting stent was inserted. The arterial sheath was pulled and a TR Band was applied for hemostasis w/ 10ml air INTERVENTION INFORMATION LESION SITE: Circumflex (Mid) Lesion Complexity: High/C, chronic total occlusion: No, lesion at bifurcation: Yes, thrombus present: No, lesion length: 12 mm, culprit lesion: Yes, Previously treated lesion: No Pre Stenosis: 90 % Pre intervention LUCIANA flow: 3 PROCEDURE: Drug Eluting Stent Post Stenosis: 0 % Post intervention LUCIANA flow: 3 Lesion Devices: Monreal .014 190cm BMW Straughn Straight Cordis 6 Fr XB3.0 100cm Guide Catheter HOMETRAX 2.25 x 15 RASHARD FRONTIER FEDERICO COMPLICATIONS No Complications PROCEDURE MEDICATIONS Versed 1 mg IV Fentanyl 50 mcg IV Oxygen: 2 L/min via nasal cannula Brilinta 180 mg PO @ 12/17/2023 14:25:23 Heparin given IA 12/17/2023 13:48:57 Heparin 2000 unit(s) IV 12/17/2023 14:03:10 Nitro 200 mcg IC 12/17/2023 14:12:11 SUMMARY OF HEMODYNAMIC DATA Time AIR REST AO 117/87 (102) SA 13:50:05 LV 127/16, 22 13:56:04 LV 125/16, 20 13:56:12 LV 128/17, 24 13:57:11 LV 127/17, 24 13:57:11 ECG 14:25:49 14:25:49 Signed By Harshil Iqbal MD On 12/17/2023 14:30:14 Harshil Iqbal MD
--- NOTE | 2023-12-17 14:45 | EKG12_ITS ---
Test Reason : AM Blood Pressure : / mmHG Vent. Rate : 055 BPM Atrial Rate : 055 BPM P-R Int : 148 ms QRS Dur : 108 ms QT Int : 450 ms P-R-T Axes : 061 101 127 degrees QTc Int : 430 ms Sinus bradycardia Minimal voltage criteria for LVH, may be normal variant ( [place] product ) Anterolateral infarct , age undetermined Abnormal ECG When compared with ECG of 17-DEC-2023 14:35, MANUAL COMPARISON REQUIRED, DATA IS UNCONFIRMED Confirmed by Pillo Lim ([id number]), avid editor SAMUEL GRIFFIN ([id number]) on 12/18/2023 8:40:34 AM Referred By: Confirmed By:Pillo Lim
--- NOTE | 2023-12-17 14:57 | CL.D_ITS ---
Patient Name: ELANA ROGERS Study Date: 12/17/2023 Performing: Gilmar Sandoval MD Ht: 73 inches 185.42 cm : 1980 Wt: 151.4 lbs 68.6 kg Age: 43 Gender: male BSA: 1.91 PROCEDURE(S) PERFORMED DC01-(43003)LHC/COR/LV IC12-(66409/C9600)FEDERICO W/WO PTCA, SINGLE CORONARY ARTERY CLINICAL PROFILE AND INDICATIONS Indications: NSTEMI, Suspected CAD Heart Failure: None Stress/Imaging Stress/Image Study Performed: No CAD Presentations: Non-STEMI. Symptom onset Date/Time: 12/16/23 Time Not Available CONCLUSIONS Previously placed stent in the LAD which is patent, disease noted in the mid circumflex artery which is significant and moderate disease noted in the right coronary artery with moderately severe left ventricular systolic dysfunction. RECOMMENDATIONS Referred for immediate PCI Would recommend medication compliance. DESCRIPTION OF PROCEDURE The patient arrived to the procedure lab. The risks and benefits of the procedure as well as a full description of our services here and current unavailability of surgical backup were fully explained to the patient and/or their significant other prior to the catheterization. The Timeout was completed, verifying the correct patient and procedure. The patient's procedural site was prepped and draped in the usual fashion. Local anesthetic was given subcutaneously to right radial region with Lidocaine 2%. Using a modified Seldinger technique, arterial access was obtained via the right radial artery, a 6Fr sheath was inserted. Left Coronary Artery selective angiography was performed in multiple views using a 5 Fr. 4.0 [place] catheter. Right Coronary Artery selective angiography was then performed in multiple views using a 5 Fr. 4.0 Clune catheter. Left Ventriculography was performed in SPENCE projection using a 5 Fr. Pigtail catheter.The arterial sheath was pulled and a TR Band was applied for hemostasis w/ 10ml air CORONARY ANGIOGRAPHY DOMINANCE: Right Dominant LEFT HEART ASSESSMENT Left Ventricular Ejection Fraction: by LV Gram 30 % Anterior Hypokinesis - Severe. Apical Hypokinesis - Severe. Lateral Hypokinesis - Moderate Depressed Left Ventricular systolic function LEFT MAIN: Angiographically normal LEFT ANTERIOR DESCENDING ARTERY: This vessel was previously stented. The stent is noted to be patent with 20 to 30% in-stent stenosis. The first diagonal vessel has mild diffuse disease and the second diagonal vessel bifurcates and has been jailed with severe 80% stenosis. Distal luminal irregularities are present. CIRCUMFLEX ARTERY: Nondominant but medium size circumflex artery with the first obtuse marginal branch which bifurcates and then the mid circumflex artery has an 80% hazy stenotic lesion. RIGHT CORONARY ARTERY: Dominant right coronary artery with 40% eccentric mid segment stenosis and mild diffuse distal disease. COMPLICATIONS No Complications PROCEDURE MEDICATIONS Versed 1 mg IV Fentanyl 50 mcg IV Oxygen: 2 L/min via nasal cannula Brilinta 180 mg PO @ 12/17/2023 14:25:23 Heparin given IA 12/17/2023 13:48:57 Heparin 2000 unit(s) IV 12/17/2023 14:03:10 Nitro 200 mcg IC 12/17/2023 14:12:11 SUMMARY OF HEMODYNAMIC DATA Time AIR REST ECG 13:31:44 AO 117/87 (102) SA 13:50:05 LV 127/16, 22 13:56:04 LV 125/16, 20 13:56:12 LV 127/17, 24 13:57:11 LV 128/17, 24 13:57:11 AIR REST 14:25:49 Signed By Gilmar Sandoval MD On 12/17/2023 14:58:32 Signed By Gilmar Sandoval MD On 12/17/2023 14:56:35 Gilmar Sandoval MD
--- NOTE | 2023-12-17 14:59 | CRPHASE1_ITS ---
Patient Communication Patient Information Former Patient:: Phase I (referred did not follow up) PHII Cardiac Rehab Discussed with Patient:: Yes Guide to Cardiac Rehab Given to Patient:: Yes Cardiac Rehab Facility Choice List Given to Patient:: Yes Communication to Cardiac Rehab Choice Program [facility] PHII:: Communication Given to CR Choice Program Other:: Communication Given to CR Frame Operator:: Anita Iqbal Refer Phase II Cardiac Rehab:: Yes Post Discharge Choice Letter Given to Patient:: Yes Phase I Charge:: Level I - Education Medical/Surgical History Medical History W[place]:: Yes Angina:: Yes Congestive Heart Failure: Diabetes:: Yes Diabetes Type I:: Yes Hypertension:: Yes Dyslipidemia:: Yes CVA/TIA: Surgical History PTCA:: Yes Cardiac Rehabilitation Info Program Information Cardiac Rehabilitation Program Information: Cardiac Rehab The cardiac rehab team at [facility] consists of highly skilled exercise physiologists, nurses, respiratory therapists and physicians working together with you. Our purpose is to help you have a full recovery and achieve the goals you set for yourself. Over the years many of our patients have returned to activities they assumed they would never do again! We can help restore your confidence and motivation to make lifestyle changes that can have a significant impact on your health and quality of life! We can help answer questions and concerns you may have about exercise, lifestyle, medications, diet, stress and anxiety which are common following a hospitalization. WE monitor ECG and vital signs during exercise and discuss your progress with you and report to your physician(s). Cardiac Rehab is proven to help reduce readmissions, improve functional capacity and lower recurrence of problems with your heart. Our Cardiac Rehab program is Certified by the [place] [employer]-Vascular and Pulmonary Rehabilitation (AACVPR) and Accredited by the [place] [employer] through our [facility]. You can contact us at . We invite you to call us with your questions or to get started in our program. If you have other questions or concerns be sure to ask your physician/provider during your follow-up visit. WE look forward to seeing you!
--- NOTE | 2023-12-17 15:01 | CRPH1.INSTRU ---
General Education Discussed with Patient CAD and cardiac anatomy and function:: Patient communicates acknowledgment and Patient returns demonstration Explanation of diagnoses and procedures:: Patient communicates acknowledgment and Patient returns demonstration Sign/Symptoms of NE:: Patient communicates acknowledgment and Patient returns demonstration Antiplatelet therapy: Patient communicates acknowledgment and Patient returns demonstration Proper use of NTG-SL: Patient communicates acknowledgment and Patient returns demonstration Emergency procedures and activation of EMS: Patient communicates acknowledgment and Patient returns demonstration Compliance of all prescribed medications: Patient communicates acknowledgment and Patient returns demonstration Smoking Risk Factors Patient Nicotine/Smoking Risk Factors Are:: Cigarettes Recommendations Recommendations Include:: Smoking cessation strategies/Smoking packet and Participation in a smoking cessation program Response Code Nicotine/Smoking Response Code:: Patient communicates acknowledgment, Patient returns demonstration and Needs reinforcement Dyslipidemia Risk Factors Patient Dyslipidemia Risk Factors Are:: Total Cholesterol and Triglycerides Recommendations Recommendations Include:: Lipid profile provided Response Code Dyslipidemia Response Code:: Patient communicates acknowledgment and Patient returns demonstration Overweight/Obesity Risk Factors Patient Overweight/Obesity Risk Factors Are:: BMI Normal [18-25 & < 65 years old] Recommendations Recommendations Include:: Exercise 5-7 times/week Response Code Overweight/Obesity:: Patient communicates acknowledgment and Patient returns demonstration Hypertension Recommendations Recommendations Include:: Maintain BP <130/85 and Moderation of ETOH Response Code Hypertension:: Patient communicates acknowledgment, Patient returns demonstration and Needs reinforcement Heart Disease Risk Factors Patient Heart Disease Risk Factors Are:: Family history of heart disease < 65 years old and Previous cardiac event Recommendations Recommendations Include:: Educated family members of their risk and Educated family members of importance of prevention of heart disease Response Code Heart Disease Response Code:: Patient communicates acknowledgment, Patient returns demonstration and Needs reinforcement Diabetes Recommendations Recommendations Include:: Maintain fasting blood sugars 70-110 md/dL, Maintain HgbA1c of 6% or less, Monitor blood sugar as prescribed and Diabetic dietary guidelines Response Code Diabetes:: Patient communicates acknowledgment, Patient returns demonstration and Needs reinforcement Metabolic Syndrome Risk Factors Patient Metabolic Syndrome Risk Factors Are [3 of 5]:: Hypertension Recommendations Recommendations Include:: Reinforce compliance to risk factor modifications, Patient is diabetic and Encouraged follow-up with Primary Care Physician Response Code Metabolic Syndrome Response Code:: Patient communicates acknowledgment and Patient returns demonstration Sedentary Recommendations Recommendations Include:: Aerobic exercise 5-7 times/week for 20-30 minutes continuously, Benefits of regular exercise and Monitored Outpatient Cardiac Rehab Response Code Sedentary Response Code:: Patient communicates acknowledgment, Patient returns demonstration and Needs reinforcement Stress Risk Factors Patient Stress Risk Factors Are:: Patient denies stress as a risk factor Recommendations Recommendations Include:: Stress management techniques Response Code Stress Response Code:: Patient communicates acknowledgment and Patient returns demonstration
[2023-12-17] MEDS: Empagliflozin 25 MG Tablet PO (15:19)
--- NOTE | 2023-12-17 15:21 | CASEMGMT ---
Social Work- SW met with pt due to self-pay status to discuss community resources. Pt started medicaid application with [place], [employer]. SW provided [employer] card, information on [employer], [facility], various prescription resources online, [facility], and [facility] Rx program. RNCM has already began working on [facility] Rx program. Pt was receptive to information and expressed appreciation for assistance/resources. Pt indicates no other needs at this time. SW will remain available if needs change. CIRILO Wilkins
[2023-12-17] MEDS: 0.9% Normal Saline (1000mL) 1,000 ML 75 ML IV (15:22)
[2023-12-17 17:05] LABS: Bedside Glucose 73 mg/dL (74-106)
[2023-12-17] MEDS: Atorvastatin Calcium 80 MG Tablet PO (20:43)
[2023-12-17] MEDS: TICAGRELOR 90 MG TABLET PO (20:43)
[2023-12-17 21:06] LABS: Bedside Glucose 74 mg/dL (74-106)
[2023-12-18] VITALS (12 sets, daily range): BP systolic 117–155; BP diastolic 67–99; PULSE 44–70; RESP 12–18; TEMP 36.7–36.9; O2SAT 98–100; BMI 19.5
[2023-12-18 05:07] LABS: Hematocrit 43.1 % (40-54); Hemoglobin 14.1 g/dL (13.0-16.5); Mean Corp Hgb Conc 32.7 g/dL (32-36); Mean Corpuscular Hgb 30.9 pg (27.0-32.0); Mean Corpuscular Volume 94.5 fL (80-94); Mean Platelet Vol. 10.1 fl (6.2-12.0); Platelet Count 289 K/mm3 (150-450); RBC Distribution Width CV 12.9 % (11.6-14.6); RBC Distribution Width SD 45.1 fl (35.1-43.9); Red Blood Count 4.56 M/mm3 (4.6-6.2); White Blood Count 7.2 K/mm3 (4.4-11.0)
[2023-12-18 05:57] LABS: ALB/GLOB Ratio 0.9 RATIO (0.9-2.4); AST(SGOT) 70 U/L (15-37); Alanine Aminotransfer ALT/SGPT 28 U/L (16-61); Albumin, Serum 3.1 g/dL (3.2-5.0); Alkaline Phosphatase 56 U/L (45-117); Anion Gap 7 (5-15); BUN 8 mg/dL (7-18); BUN/Creat Ratio 10.8 RATIO (10-20); Calcium,Total 8.5 mg/dL (8.5-10.1); Chloride 106 mmol/L (98-107); Creatinine, Serum 0.74 mg/dL (0.70-1.30); EST Glomerular Filtration Rate 122 mL/min (>60); Est Glom Filt Rate - Afr Amer 148 mL/min (>60); Estimated Creatinine Clearance 120.18 ml/min; Globulin 3.4 g/dL (2.2-4.2); Glucose 87 mg/dL (74-106); Potassium 3.8 mmol/L (3.5-5.1); Protein, Total 6.5 g/dL (6.4-8.2); Sodium Level 137 mmol/L (136-145)
[2023-12-18] MEDS: Aspirin 81 MG TAB.CHEW PO (07:24)
[2023-12-18] MEDS: Carvedilol 12.5 MG Tablet PO (07:24)
[2023-12-18 07:39] LABS: Bedside Glucose 81 mg/dL (74-106)
[2023-12-18] MEDS: TICAGRELOR 90 MG TABLET PO (09:17)
[2023-12-18] MEDS: Lisinopril 10 MG Tablet PO (09:17)
--- NOTE | 2023-12-18 09:40 | CASEMGMT ---
CARINA RANKIN into pt room, provided pt with information about [facility] and application. Pt agreeable to CARINA RANKIN scheduling a follow up appt for him. TC to [facility], spoke with Richa. Appt made for 01/14/24 at 11:00 am. Notified pt of date and time and added to DC plan. Called retail pharmacy to make aware of RX assist and notified pt would like meds delivered to room, faxed form to pharmacy.
--- NOTE | 2023-12-18 10:00 | EKG12_ITS ---
Test Reason : stent placement Blood Pressure : / mmHG Vent. Rate : 051 BPM Atrial Rate : 051 BPM P-R Int : 156 ms QRS Dur : 104 ms QT Int : 502 ms P-R-T Axes : 054 090 144 degrees QTc Int : 462 ms Sinus bradycardia Left ventricular hypertrophy with repolarization abnormality ( [place] product ) Anterolateral infarct , age undetermined Abnormal ECG When compared with ECG of 16-DEC-2023 19:16, MANUAL COMPARISON REQUIRED, DATA IS UNCONFIRMED Confirmed by Pillo Lim ([id number]), film editor supervisor SAMUEL GRIFFIN ([id number]) on 12/18/2023 8:40:41 AM Referred By: Jaime Confirmed By:Pillo Lim
[2023-12-18] MEDS: Empagliflozin 25 MG Tablet PO (10:24)
[2023-12-18 10:42] LABS: Bedside Glucose 112 mg/dL (74-106)
--- NOTE | 2023-12-18 10:43 | DS.PCM_ITS ---
Providers Date of Admission: 12/16/23 Date of Discharge: 12/18/23 Primary Care Physician: Misti Primary Care Phys Consultations 12/16/23 19:19 Consult: Cardiology Routine Consulting Provider: Anita Iqbal Reason for Consult: nstemi EMERGENT Consult: No MD Notified: Yes Date Notified: 12/16/23 Time Notified: 17:42 Method of Notification: Verbal Reason For Visit: NSTEMI Diagnosis Discharge Diagnosis (1) NSTEMI, initial episode of care: Status: Acute Code(s): I21.4 - Non-ST elevation (NSTEMI) myocardial infarction Medications at Discharge Home Medications aspirin 81 mg chewable tablet 81 mg PO DAILY #90 tabs 01/24/23 atorvastatin 40 mg tablet 40 mg PO QHS #90 tabs 12/18/23 carvedilol 12.5 mg tablet 12.5 mg PO BIDCM #180 tabs 12/18/23 empagliflozin 25 mg tablet (Jardiance) 25 mg PO DAILY #30 tabs 12/18/23 lisinopril 10 mg tablet 10 mg PO DAILY #30 tabs 12/18/23 spironolactone 25 mg tablet 12.5 mg (1/2 x 25 mg) PO DAILY #30 tabs 12/18/23 ticagrelor 90 mg tablet (Brilinta) 90 mg PO BID #60 tabs 12/18/23 Hospital Course Operations None Procedures 2-D Echocardiogram, Cardiac catheterization and EKG Summary of Care Provided Minutes Spent on Discharge: 39 Hospital Course: Mr. Foster is a 43-year-old male who presented to the emergency department [facility] on 12/16/2023 with chest pain. He does have previous CT with stenting in December 2022 to the LAD. He presented with substernal chest pain that started the day prior to presentation. He lost his insurance about 4 months ago so he has not been taking any of his medications except for an occasional aspirin. He was at work at the time of symptom onset. He rated the intensity of 6 out of 10 and his pain radiated to both of his shoulders. Vital signs on presentation showed a temperature of 98.1, heart rate 87, respiratory 16, blood pressure was 182/124 and pulse ox was 99% on room air. CBC showed a mild leukocytosis and erythrocytosis which have since resolved. Coags were normal. His chemistry panel was overtly unremarkable. His initial troponin was found to be 15,115 and trended up to a peak of 24,215. The case was discussed by the emergency department with interventional cardiology who recommended admitting the patient and starting a nitro drip as well as a heparin drip and plan was for cardiac catheterization. 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 Echocardiogram was performed and showed stable EF at 35% with moderately severe segmental systolic dysfunction and stage III diastolic dysfunction. He was seen by cardiac rehab for transitioning after discharge. Since there were financial implications we did have case management and social work follow-up with the patient and he is getting medication assist with Medicaid application being filled out while he is hospitalized. His hemoglobin A1c was found to be 4.9%. Lipids showed a total cholesterol 205/LDL of 124/triglycerides 101 and HDL of 61. No change in his statin was made at this time as he had not been compliant. He will need follow-up lipid panel in 3 to 6 months and dose adjustment of his atorvastatin if his LDL is not 70 or lower. We have arranged follow-up for him in the [facility] for primary care and he has cardiology follow-up appointment arranged. Prescriptions for all of his medications were sent to local pharmacy prior to discharge and filled via medication assistance. The only medication he should have to pay for [id number] is aspirin. He was discharged home in stable condition on 12/18/2023. He received additional counseling with regards to smoking cessation as he has cut back but still smoking slightly less than a half a pack daily. Discharge diagnoses: NSTEMI Ischemic cardiomyopathy Stage III diastolic dysfunction DM-2 Hypertension Tobacco abuse Medication noncompliance due to financial reasons Physical Exam Const alert, oriented x3, no apparent distress, average body habitus and no limitations; Negative for healthy appearing Constitutional Narrative: Middle-aged, white male, lying in bed, appears comfortable, appears older than stated age, appears nontoxic General Appearance: cooperative, comfortable, well developed and disheveled Orientation / Consciousness: awake, oriented to person, oriented to place and oriented to time Exam Limitations: no limitations Nutritional Appearance: thin HEENT normocephalic, head/scalp atraumatic, hearing grossly normal bilaterally and moist oral mucous membranes HEENT Narrative: Dentition is poor, Mallampati is 2, no thrush Eyes PERRL, EOMs intact bilaterally and conjunctivae normal Eyes Narrative: No scleral icterus Neck no lymphadenopathy and supple Neck Narrative: Trachea midline, no thyroid enlargement Resp normal respiratory effort, no retractions, no use of accessory muscles and clear to auscultation bilaterally Resp Narrative: Diminished but clear Auscultation: Negative for rales, rhonchi or wheezes Cardio regular rate, regular rhythm, S1 normal heart sound, S2 normal heart sound, no murmurs, no rub, no gallops and no clicks GI normal to inspection, nondistended, normoactive bowel sounds, soft to palpation and non-tender Extremity no clubbing, cyanosis or edema Extremity Narrative: Radial pulses and pedal pulses are 2+ bilaterally Skin no rashes or lesions noted, no wounds, skin turgor normal and no jaundice Neuro oriented x3, CN's II-XII intact bilaterally, moves all extremities and no focal motor deficits Speech: speech normal Psych affect normal Psych Narrative: Pleasant, eye contact is good, interacts appropriately Weight / BMI Weight Weight: 66.7 kg Body Mass Index (BMI) 19.5 ABG / Lab / Microbiology Data 12/18/23 04:55 12/18/23 04:55 Laboratory: Laboratory Results - last 24 hr 12/17/23 11:02: POC Glucose 113 H 12/17/23 16:45: POC Glucose 73 L 12/17/23 20:46: POC Glucose 74 12/18/23 04:55: WBC 7.2, RBC 4.56 L, Hgb 14.1, Hct 43.1, MCV 94.5 H, MCH 30.9, MCHC 32.7, RDW Std Deviation 45.1 H, RDW Coeff of Silvana 12.9, Plt Count 289, MPV 10.1, Sodium 137, Potassium 3.8, Chloride 106, Carbon Dioxide 24.0, Anion Gap 7, BUN 8, Creatinine 0.74, Estim Creat Clear Calc 120.18, Est GFR (MDRD) Af Amer 148, Est GFR (MDRD) Non-Af 122, BUN/Creatinine Ratio 10.8, Glucose 87, Calcium 8.5, Total Bilirubin 0.40, AST 70 H, ALT 28, Alkaline Phosphatase 56, Total Protein 6.5, Albumin 3.1 L, Globulin 3.4, Albumin/Globulin Ratio 0.9 12/18/23 07:19: POC Glucose 81 12/18/23 10:22: POC Glucose 112 H Radiography Diagnostic Testing: Radiology Impression Echocardiogram 12/17/23 05:55 Interpretation Summary The left ventricular ejection fraction is 35 %. Normal LV size. Moderately severe segmental systolic dysfunction (see wall motion). Stage 3 diastolic dysfunction. Ordering Physician: Blane Hobbs Performed By: Jessica Dela Cruz RDCS and Student D/C Instructions Discharge Diet: Low fat / Low cholesterol and 2200 Calorie Control Diet Discharge Activity: Return to Normal Activity Return to work on: 12/19/23 Meaningful Use Info Meaningful Use Meaningful Use Diagnoses (Choose all that apply): AMI AMI/Post PCI/Angioplasty Aspirin given w/in 24hrs of arrival?: Yes ASA at discharge?: Yes Antiplatelet Therapy at Discharge:: Yes Statins at discharge?: Yes Barry/ARB at discharge?: Yes Beta Alejandro at discharge?: Yes Done w/ Acute CT measure.: Yes Documented LVEF (%): 35 Ischemic Stroke Statin Dosing Therapy Reference: STATIN DOSE THERAPY REFERENCE: * Patients > 75 years receive moderate or high dose statin therapy. * Patients 75 years or YOUNGER should receive HIGH intensity statin dose unless contraindicated. You will be required to document reason for non-treatment if statin daily dose does not meet guidelines. HIGH DOSE STATIN THERAPY DAILY Atorvastatin > than or = to 40 mg Rosuvastatin > than or = to 20 mg Amlodipine + Atorvastatin > than or = to 2.5/40 mg Ezetimibe + Simvastatin 10/80 mg Simvastatin 80mg Discharge Plan Admission Admit Date/Time: 12/16/23 17:40 Primary Reason for Your Visit: Chest Pain Attending Provider: Amirah Zhu Primary Care Provider: Care Physician,No Primary Consulting Providers: Anita Iqbal; Blane Hobbs Instructions Forms: Work Excuse Discharge Orders/Prescriptions Prescriptions: New lisinopril 10 mg Tablet 10 mg PO DAILY Qty: 30 2RF Brilinta 90 mg Tablet 90 mg PO BID Qty: 60 1RF Jardiance 25 mg Tablet 25 mg PO DAILY Qty: 30 2RF Continued aspirin 81 mg tablet,chewable 81 mg PO DAILY Qty: 90 3RF atorvastatin 40 mg tablet 40 mg PO QHS Qty: 90 3RF spironolactone 25 mg tablet 12.5 mg PO DAILY Qty: 30 2RF carvedilol 12.5 mg tablet 12.5 mg PO BIDCM Qty: 180 3RF Discontinued clopidogrel 75 mg tablet 75 mg PO DAILY Qty: 90 3RF lisinopril 5 mg tablet 5 mg PO BID Qty: 180 3RF Farxiga 10 mg tablet 10 mg PO DAILY Qty: 90 3RF Referrals / Follow Up: Otilia Mcdermott [Non-Staff] - See Referral Note (Appointment with Dr. Hurley on 01/14/24 at 11:00am. ) Care Physician,No Primary [Primary Care Provider] - Disposition Disposition (needs filled in before D/C Order can be placed): Home, Self Care Charges/Coding Visit Charges Inpatient E&M: 38893 Disch Hosp >30min
== END 2023-12-18 13:00 | disposition home or self-care (01) | DRG 322 ==
LOC: ED 17:28 → ICU 18:30
PROVIDERS: Specialist; Admitting Provider Hospitalist; Emergency Provider Emergency Medicine; Visit Provider Internal Medicine
DX: I21.4 Non-ST elevation (NSTEMI) myocardial infarction (principal); T82.855A Stenosis of coronary artery stent, initial encounter; E11.9 Type 2 diabetes mellitus without complications; I10 Essential (primary) hypertension; I25.10 Atherosclerotic heart disease of native coronary artery without angina pectoris; E78.5 Hyperlipidemia, unspecified; I25.5 Ischemic cardiomyopathy; F17.210 Nicotine dependence, cigarettes, uncomplicated; I25.2 Old myocardial infarction; Y71.2 Prosthetic and other implants, materials and accessory cardiovascular devices associated with adverse incidents; Z91.190 Patient's noncompliance with other medical treatment and regimen due to financial hardship; Z79.82 Long term (current) use of aspirin; Z95.5 Presence of coronary angioplasty implant and graft
CPT/HCPCS: 71045; 80048; 80053; 80061; 82962; 83036; 84484; 85025; 85027; 85610; 85730; 92928; 93005; 93306; 93458; 99152; 99153; 99284; J7030; Q9967; A4216; C1769; C1874; C1887; C1894; C9600; J1327

== ENCOUNTER 2024-02-21 16:20 | Emergency (ER) | payer MEDICAID, SELFPAY ==
[2024-02-21 16:21] VITALS: BP 134/88; PULSE 86; RESP 18; TEMP 36.2; O2SAT 97; BMI 19.6
[2024-02-21 17:38] LABS: Mucous, Urine 0 SEEN /hpf (<or=2+); White Blood Cells 0 SEEN /hpf (0-5)
[2024-02-21 17:41] LABS: Color, Urine Yellow (Yellow); Glucose, Dipstick Normal (Normal); Ketone-Dipstick 5 mg/dl (Negative); Leukocyte Esterase-Dipstick Negative /ul (Negative); Nitrite-Dipstick Negative (Negative); Occult Blood-Urine Negative /ul (Negative); Protein-Dipstick 15 mg/dl (Negative); Specific Gravity, Urine 1.015 (1.002-1.030); Urine Bilirubin Dipstick Negative (Negative); Urine Clarity Sl. Cloudy (Clear); Urine Urobilinogen Normal (Normal)
[2024-02-21 18:02] LABS: Bacteria RARE /hpf (None Seen); Red Blood Cells-Urine 0-5 SEEN /hpf (0-5)
[2024-02-21 20:09] VITALS: BP 137/88; PULSE 77; RESP 16; TEMP 36.8; O2SAT 98
--- NOTE | 2024-02-21 20:17 | CT_ITS ---
INDICATION: Right flank pain EXAMINATION: CT ABDOMEN AND PELVIS WITHOUT CONTRAST - CT Abdomen And Pelvis W/O Contrast Injection TECHNIQUE: Helically acquired images were obtained of the abdomen and pelvis without oral or IV contrast. A radiation dose optimization technique was used for this scan. IV Contrast dosage and agent: None. Oral contrast: None. COMPARISON: None. FINDINGS: LOWER CHEST: Lung bases are clear. No cardiomegaly or pericardial effusion. LIVER: Homogeneous. No focal mass. GALLBLADDER AND BILIARY TREE: No calcified gallstones. No gallbladder distension or wall edema. No intra- or extrahepatic biliary ductal dilation. PANCREAS: No focal cystic or solid mass. SPLEEN: Normal size without focal cystic or solid mass. ADRENAL GLANDS: No nodules. KIDNEYS AND URETERS: No nephrolithiasis or hydronephrosis. PERITONEUM: No ascites or free air. BOWEL: Normal appendix. No stomach or bowel distension. No focal inflammatory change. LYMPH NODES: No enlarged mesenteric or retroperitoneal lymph nodes. VESSELS: Aorta is non-dilated. URINARY BLADDER: Unremarkable. REPRODUCTIVE ORGANS: No pelvic masses. ABDOMINAL WALL: No discrete abdominal or pelvic wall hernia. BONES: No acute or aggressive abnormality. CT/Abdomen/Pelvis without Cont IMPRESSION: No acute findings in the abdomen or pelvis. No nephrolithiasis or evidence of obstructive uropathy. Electronically Signed: Evan Chandra MD at 21:44 EDT ,
[2024-02-21] MEDS: 0.9% Normal Saline (1000mL) 1,000 ML 999 ML IV (20:25)
[2024-02-21] MEDS: Ketorolac 15 MG/ML Vial IV (20:25)
--- NOTE | 2024-02-21 20:29 | EX.ED.DYSGE1 ---
HPI <DOLOERS Villavicencio - Last Filed: 02/21/24 21:58> History of Present Illness Chief Complaint: Flank Pain Narrative Narrative: Patient is a 43-year-old male with history of diabetes, hypertension hyperlipidemia anxiety who smokes 3 cigarettes daily presents to the [facility] part with right sided flank pain. Patient's the pain comes and goes, started off light. Over the last 2 days, the patient states that the pain has been more severe. Patient also states he feels a tingling sensation in the tip of his penis when he finishes urinating. Patient is not sexually active at this time. Patient denies any fever or chills. PFS <DOLORES Villavicencio - Last Filed: 02/21/24 21:58> [facility] Medical History Nicotine dependence Diabetes mellitus Cardiomyopathy, ischemic Left ventricular systolic dysfunction (LVSD) Dyslipidemia Hypertension Tobacco abuse Non-STEMI (non-ST elevated myocardial infarction) (01/03/23) Home Medications ?Medication ?Instructions ?Recorded ?Last Taken ?Type aspirin 81 mg chewable tablet 81 mg PO DAILY #90 tabs 01/24/23 10/17/23 Rx atorvastatin 40 mg tablet 40 mg PO QHS #90 tabs 12/18/23 Unknown Rx carvedilol 12.5 mg tablet 12.5 mg PO BIDCM #180 tabs 12/18/23 Unknown Rx empagliflozin 25 mg tablet 25 mg PO DAILY #30 tabs 12/18/23 Unknown Rx (Jardiance) lisinopril 10 mg tablet 10 mg PO DAILY #30 tabs 12/18/23 Unknown Rx spironolactone 25 mg tablet 12.5 mg (1/2 x 25 mg) PO DAILY #30 12/18/23 Unknown Rx tabs ticagrelor 90 mg tablet (Brilinta) 90 mg PO BID #60 tabs 12/18/23 Unknown Rx naproxen 500 mg tablet (Naprosyn) 500 mg PO BID PRN pain #20 tabs 02/21/24 Unknown Rx Allergy/AdvReac Type Severity Reaction Status Date / Time bupropion (From Wellbutrin) Allergy Swelling Verified 02/21/24 16:21 paroxetine (From Paxil) Allergy Swelling Verified 02/21/24 16:21 Family History Other Heart disease Surgical History Stented coronary artery (01/04/23) Social History Smoking Status: Current some day smoker tobacco type: cigarettes substance use type: former substance user Date of last use: Years ago, methamphetamine and marijuana ROS <DOLORES Villavicencio - Last Filed: 02/21/24 21:58> ROS ED ROS Narrative Constitutional: Negative for fever, chills, weight loss, weakness Eyes: Negative for vision loss, vision change, double vision ENT: Negative for any sore throat, ear pain, congestion Cardiovascular: Negative for any chest pain, tightness, palpitations Respiratory: Negative for any cough, sputum production, hemoptysis, dyspnea, dyspnea on exertion, orthopnea Gastrointestinal: Negative for any abdominal pain, nausea, vomiting, diarrhea, constipation, blood in stool, blood in vomit : Negative for any urinary frequency, retention, blood in urine. Positive for dysuria Muscle skeletal: Negative for any neck pain, back pain. Positive for right-sided flank. Neurological: Negative for any headache, syncope, dizziness Skin: Negative for any rashes, itching, abrasions, lacerations Psychiatric: Negative for any depression, anxiety, stress, suicidal ideation, homicidal ideation Hematologic: Negative for any excessive bruising, easy bleeding EXAM <DOLORES Villavicencio - Last Filed: 02/21/24 21:58> Physical Exam Narrative Exam Narrative: Vital signs reviewed. Patient is in no obvious distress vital signs are stable, nontoxic-appearing. HEET: Head normocephalic atraumatic, TMs clear bilaterally. Posterior pharynx is clear, moist mucous membranes. Nares clear bilaterally. Neck: Supple with no lymphadenopathy or tenderness. No signs of meningismus. Cardiac: Regular rate and rhythm no murmurs gallops or rubs, equal peripheral pulses bilaterally. Respiratory: Lungs clear to auscultation bilaterally. No chest tenderness. Abdomen: Soft, nontender, nondistended. No abdominal bruit or pulsatile masses. No hepatosplenomegaly Extremities: No peripheral edema, no signs of gross trauma or deformity. Active full range of motion of all extremities. Neuro: Cranial nerves II through XII intact, no focal neurological deficits. Skin: Clean dry and intact with no rash, purpura, petechiae, vesicles or pustules. Backs/flank: No CVA tenderness, no midline spinal tenderness, no deformity. Patient has some pain to the right flank area however no CVA tenderness. Pain can be exacerbated by bending however also when the patient sits still he states he still feels some pain. Psych: Normal mood and affect. No SI, HI or acute psychosis. Const Vital Signs: 02/21/24 16:21 02/21/24 20:09 Temperature 97.2 F L 98.3 F Temperature Source Temporal Oral Pulse Rate 86 77 Respiratory Rate 18 16 Blood Pressure 134/88 H 137/88 H Blood Pressure Mean 103 104 Pulse Ox 97 98 Oxygen Delivery Method Room Air Room Air <Dr. Nitza Sow DO - Last Filed: 02/24/24 10:00> Physical Exam Const Vital Signs: 02/21/24 16:21 02/21/24 20:09 Temperature 97.2 F L 98.3 F Temperature Source Temporal Oral Pulse Rate 86 77 Respiratory Rate 18 16 Blood Pressure 134/88 H 137/88 H Blood Pressure Mean 103 104 Pulse Ox 97 98 Oxygen Delivery Method Room Air Room Air [facility] <DOLORES Villavicencio - Last Filed: 02/21/24 21:58> [facility] Lab Data Labs: Laboratory Results - last 24 hr 02/21/24 02/21/24 17:24 20:15 WBC 9.5 RBC 4.96 Hgb 15.1 Hct 45.4 MCV 91.5 MCH 30.4 MCHC 33.3 RDW Std Deviation 45.8 H RDW Coeff of Silvana 13.5 Plt Count 268 MPV 10.4 Immature Gran % (Auto) 0.700 Neut % (Auto) 58.8 Lymph % (Auto) 23.9 [place] % (Auto) 9.2 Eos % (Auto) 6.5 H Baso % (Auto) 0.9 Absolute Neuts (auto) 5.6 Absolute Lymphs (auto) 2.27 Nucleated RBC % 0 Sodium 134 L Potassium 4.0 Chloride 104 Carbon Dioxide 23.0 Anion Gap 7 BUN 13 Creatinine 0.72 Estim Creat Clear Calc 125.24 Est GFR (MDRD) Af Amer 152 Est GFR (MDRD) Non-Af 126 BUN/Creatinine Ratio 18.1 Glucose 94 Calcium 9.3 Total Bilirubin 0.40 AST 15 ALT 22 Alkaline Phosphatase 59 Total Protein 7.3 Albumin 3.6 Globulin 3.7 Albumin/Globulin Ratio 1.0 Lipase 26 Urine Color Yellow Urine Clarity Sl. Cloudy Urine pH 5.0 Ur Specific [place] 1.015 Urine Protein 15 H Urine Glucose (UA) Normal Urine Ketones 5 H Urine Occult Blood Negative Urine Nitrite Negative Urine Bilirubin Negative Urine Urobilinogen Normal Ur Leukocyte Esterase Negative Urine RBC 0-5 SEEN Urine WBC 0 SEEN Urine Bacteria RARE Urine Mucus 0 SEEN Radiography Diagnostic Testing: Clinical Impression(s) from Imaging Studies Abdomen/Pelvis CT 02/21/24 20:17 IMPRESSION: No acute findings in the abdomen or pelvis. No nephrolithiasis or evidence of obstructive uropathy. Electronically Signed: Evan Chandra MD at 21:44 EDT Reading Location ID and State: [facility] [place] Tel , Service support , Treatment and Re-Evaluation :: Differential diagnosis includes however is not limited to: UTI, pyelonephritis, obstructing kidney stone, kidney mass, muscle skeletal pain Patient appears to be in no obvious distress vital signs are stable, patient is nontoxic-appearing. Resenting to the emergency department with complaints of right-sided flank pain for last 3 to 4 days. Patient will receive a kidney stone workup including a CT scan of the abdomen pelvis, IV fluids, Toradol. Patient will see the urinalysis as well as basic blood work. All radiologic examinations were read, reviewed by the emergency department attending. From these reads, a plan of care will be put in place. Patient CBC was unremarkable, patient's chemistries were unremarkable. Lipase was negative. Patient's urinalysis was negative for any infection, there is no blood. CT scan of the abdomen pelvis shows no acute findings in the abdomen or pelvis. No nephrolithiasis or evidence of obstructing uropathy. At this time, patient diagnosed with muscle skeletal back pain. Patient did feel much better after IV anti-inflammatories. Patient be placed on naproxen for home. Instructed to perform gentle stretching, ice and heat. Patient struck to return for any worsening symptoms, stable for discharge. <Dr. Nitza Sow, DO - Last Filed: 02/24/24 10:00> [facility] Lab Data Attestation: I reviewed the patient's lab results. Labs: Laboratory Results - last 24 hr 02/21/24 02/21/24 17:24 20:15 WBC 9.5 RBC 4.96 Hgb 15.1 Hct 45.4 MCV 91.5 MCH 30.4 MCHC 33.3 RDW Std Deviation 45.8 H RDW Coeff of Silvana 13.5 Plt Count 268 MPV 10.4 Immature Gran % (Auto) 0.700 Neut % (Auto) 58.8 Lymph % (Auto) 23.9 [place] % (Auto) 9.2 Eos % (Auto) 6.5 H Baso % (Auto) 0.9 Absolute Neuts (auto) 5.6 Absolute Lymphs (auto) 2.27 Nucleated RBC % 0 Sodium 134 L Potassium 4.0 Chloride 104 Carbon Dioxide 23.0 Anion Gap 7 BUN 13 Creatinine 0.72 Estim Creat Clear Calc 125.24 Est GFR (MDRD) Af Amer 152 Est GFR (MDRD) Non-Af 126 BUN/Creatinine Ratio 18.1 Glucose 94 Calcium 9.3 Total Bilirubin 0.40 AST 15 ALT 22 Alkaline Phosphatase 59 Total Protein 7.3 Albumin 3.6 Globulin 3.7 Albumin/Globulin Ratio 1.0 Lipase 26 Urine Color Yellow Urine Clarity Sl. Cloudy Urine pH 5.0 Ur Specific [place] 1.015 Urine Protein 15 H Urine Glucose (UA) Normal Urine Ketones 5 H Urine Occult Blood Negative Urine Nitrite Negative Urine Bilirubin Negative Urine Urobilinogen Normal Ur Leukocyte Esterase Negative Urine RBC 0-5 SEEN Urine WBC 0 SEEN Urine Bacteria RARE Urine Mucus 0 SEEN Radiography Diagnostic Testing: Clinical Impression(s) from Imaging Studies Abdomen/Pelvis CT 02/21/24 20:17 IMPRESSION: No acute findings in the abdomen or pelvis. No nephrolithiasis or evidence of obstructive uropathy. Electronically Signed: Evan Chandra MD at 21:44 EDT , Treatment and Re-Evaluation :: Differential diagnosis includes however is not limited to: UTI, pyelonephritis, obstructing kidney stone, kidney mass, muscle skeletal pain Patient appears to be in no obvious distress vital signs are stable, patient is nontoxic-appearing. Resenting to the emergency department with complaints of right-sided flank pain for last 3 to 4 days. Patient will receive a kidney stone workup including a CT scan of the abdomen pelvis, IV fluids, Toradol. Patient will see the urinalysis as well as basic blood work. All radiologic examinations were read, reviewed by the emergency department attending. From these reads, a plan of care will be put in place. Patient CBC was unremarkable, patient's chemistries were unremarkable. Lipase was negative. Patient's urinalysis was negative for any infection, there is no blood. CT scan of the abdomen pelvis shows no acute findings in the abdomen or pelvis. No nephrolithiasis or evidence of obstructing uropathy. At this time, patient diagnosed with muscle skeletal back pain. Patient did feel much better after IV anti-inflammatories. Patient be placed on naproxen for home. Instructed to perform gentle stretching, ice and heat. Patient struck to return for any worsening symptoms, stable for discharge. I have personally performed a face to face assessment of the patient and have reviewed the CRISTINA Note. I performed a substantive portion of the visit including all aspects of the following. My ny findings include: History is patient presents with mild discomfort with urination as well as some right lower back pain. Pain is made worse with movement. Differential includes was not limited to urinary tract infection, muscle skeletal back pain, pyonephritis, renal colic/obstructing kidney stone. Patient denies any sexual activity so lower suspicion for STI. Denies any associate testicular pains lower suspicion for epididymitis or torsion. Lab work largely normal with no signs of infection, DEBRA or other acute abnormalities. CT does not show any acute process. Will treat this as muscle skeletal pain. Given return precautions. Discharged home in stable condition. Other additions or changes: [None] Discharge Plan Triage Chief Complaint: Flank Pain ED Midlevel Provider: Ron Gonzalez ED Provider: Nitza Sow Dx/Rx/DC Orders Clinical Impression: Acute lumbar back pain Instructions: ED Back Pain (Acute or Chronic) Prescriptions: New naproxen [Naprosyn] 500 mg tablet 500 mg PO BID PRN (Reason: pain) Qty: 20 0RF No Action aspirin 81 mg tablet,chewable 81 mg PO DAILY Qty: 90 3RF lisinopril 10 mg Tablet 10 mg PO DAILY Qty: 30 2RF Brilinta 90 mg Tablet 90 mg PO BID Qty: 60 1RF Jardiance 25 mg Tablet 25 mg PO DAILY Qty: 30 2RF atorvastatin 40 mg tablet 40 mg PO QHS Qty: 90 3RF spironolactone 25 mg tablet 12.5 mg PO DAILY Qty: 30 2RF carvedilol 12.5 mg tablet 12.5 mg PO BIDCM Qty: 180 3RF Primary Care Provider: Pau Hurley Referrals: Pau Hurley, [Primary Care Provider] - Activity Restrictions/Additional Instructions: Please perform gentle stretching, ice and heat. Print Language: [place] Disposition Disposition: Home, Self Care Discharge Date/Time: 02/21/24 22:11
[2024-02-21 20:30] LABS: Absolute Lymphocyte Count 2.27 X10^3/uL (0.83-4.51); Absolute Neutrophil Count 5.6 X10^3/uL (2.0-7.7); Basophil# 0.09 X10^3/uL; Basophil% 0.9 % (0-1); Eosinophil# 0.62 X10^3/uL; Eosinophils% 6.5 % (0-5); Hematocrit 45.4 % (40-54); Hemoglobin 15.1 g/dL (13.0-16.5); Lymphocyte # 2.27 X10^3/ul (0.83-4.51); Lymphocyte % 23.9 % (19-41); Mean Corp Hgb Conc 33.3 g/dL (32-36); Mean Corpuscular Hgb 30.4 pg (27.0-32.0); Mean Corpuscular Volume 91.5 fL (80-94); Mean Platelet Vol. 10.4 fl (6.2-12.0); Monocyte# 0.87 X10^3/uL; Monocyte% 9.2 % (0-10); NRBC Flagged by Analyzer 0 % (0-5); Neutrophil # 5.57 X10^3/uL (2.7-7.7); Neutrophil % 58.8 % (47-70); Platelet Count 268 K/mm3 (150-450); RBC Distribution Width CV 13.5 % (11.6-14.6); RBC Distribution Width SD 45.8 fl (35.1-43.9); Red Blood Count 4.96 M/mm3 (4.6-6.2); White Blood Count 9.5 K/mm3 (4.4-11.0)
[2024-02-21 20:44] LABS: AST(SGOT) 15 U/L (15-37); Alanine Aminotransfer ALT/SGPT 22 U/L (16-61); Albumin, Serum 3.6 g/dL (3.2-5.0); Alkaline Phosphatase 59 U/L (45-117); Anion Gap 7 (5-15); BUN 13 mg/dL (7-18); BUN/Creat Ratio 18.1 RATIO (10-20); Calcium,Total 9.3 mg/dL (8.5-10.1); Chloride 104 mmol/L (98-107); Creatinine, Serum 0.72 mg/dL (0.70-1.30); EST Glomerular Filtration Rate 126 mL/min (>60); Est Glom Filt Rate - Afr Amer 152 mL/min (>60); Estimated Creatinine Clearance 125.24 ml/min; Globulin 3.7 g/dL (2.2-4.2); Glucose 94 mg/dL (74-106); Lipase 26 U/L (13-75); Protein, Total 7.3 g/dL (6.4-8.2); Sodium Level 134 mmol/L (136-145)
== END 2024-02-21 22:11 | disposition home or self-care (01) ==
PROVIDERS: Nurse Practitioner; Emergency Provider Emergency Medicine; PCP Family Medicine; Visit Provider Emergency Medicine
DX: M54.50 Low back pain, unspecified (principal); E11.9 Type 2 diabetes mellitus without complications; F15.90 Other stimulant use, unspecified, uncomplicated; F17.210 Nicotine dependence, cigarettes, uncomplicated; E78.5 Hyperlipidemia, unspecified; I10 Essential (primary) hypertension; I25.2 Old myocardial infarction; Z95.5 Presence of coronary angioplasty implant and graft; Z79.82 Long term (current) use of aspirin; F41.9 Anxiety disorder, unspecified
CPT/HCPCS: 74176; 80053; 81001; 83690; 85025; 96361; 96374; 99283; J7030; A4216

== ENCOUNTER 2024-06-01 09:57 | Inpatient (IN) | payer MEDICAID, SELFPAY ==
[2024-06-01] VITALS (12 sets, daily range): BP systolic 124–181; BP diastolic 91–122; PULSE 70–110; RESP 14–25; TEMP 36.2–36.8; O2SAT 88–99; BMI 19.1
--- NOTE | 2024-06-01 10:39 | ED.RN ---
PT WOKE UP AND WAS COUGHING TRYING TO GET MUCUS UP, HE VOMITED FROM THE COUGHING. HAVING SOME SOB. HX OF 2 STENTS FROM 2 AR'S. WHEN THIS NURSE CAME IN TO ASSESS PT HIS SPO2 WAS 88% WITH GOOD WAVE ON RA. PLACED PT ON 2L NC. PT SMOKES CIGARETTES AND MARIJUANA. PT LOST INSURANCE AND HAS NOT BEEN ON ANY OF HIS MEDICATIONS FOR APROX 1 MONTH D/T LOSS OF INS.
--- NOTE | 2024-06-01 10:42 | EKG12_ITS ---
Test Reason : SOB/CP Blood Pressure : */* mmHG Vent. Rate : 104 BPM Atrial Rate : 104 BPM P-R Int : 152 ms QRS Dur : 102 ms QT Int : 354 ms P-R-T Axes : 71 29 86 degrees QTcB Int : 465 ms Poor data quality, interpretation may be adversely affected Sinus tachycardia with frequent Premature ventricular complexes Possible Left atrial enlargement Minimal voltage criteria for LVH, may be normal variant ( Wayne product ) Anteroseptal infarct Abnormal ECG Confirmed by MONTANA FALL, TASHI ([id number]), legal editor SAMUEL GRIFFIN ([id number]) on 06/04/2024 6:07:41 AM Referred By: EMMA/KERA Confirmed By: TASHI BOYLE MD
--- NOTE | 2024-06-01 10:43 | ED.VIS.DYS ---
HPI History of Present Illness Chief Complaint: Shortness of Breath Detail of Chief Complaint: Shortness of breath Informant: patient Narrative Narrative: Patient presents to the emergency department complaint shortness of breath that started this morning. He states that he woke up and had some nausea and threw up x 2 but he describes more phlegm rather than stomach content. Patient had a hard time catching his breath. He denies fever although he developed a cough that started yesterday. He denies recent travel or surgery. Patient has history of coronary artery disease and tells me he had a stent put in 3 months ago. He supposed to be on Plavix but has run out of it and has not been on it for at least a month. He denies chest pain with activity. Patient continues to smoke. Denies history of COPD or emphysema or history of congestive heart failure. [facility] Medical History Nicotine dependence Diabetes mellitus Cardiomyopathy, ischemic Left ventricular systolic dysfunction (LVSD) Dyslipidemia Hypertension Tobacco abuse Non-STEMI (non-ST elevated myocardial infarction) (01/03/23) Home Medications ?Medication ?Instructions ?Recorded ?Last Taken ?Type aspirin 81 mg chewable tablet 81 mg PO DAILY #90 tabs 01/24/23 06/01/24 Rx atorvastatin 40 mg tablet 40 mg PO QHS #90 tabs 12/18/23 Unknown Rx carvedilol 12.5 mg tablet 12.5 mg PO BIDCM #180 tabs 12/18/23 Unknown Rx empagliflozin 25 mg tablet 25 mg PO DAILY #30 tabs 12/18/23 Unknown Rx (Jardiance) lisinopril 10 mg tablet 10 mg PO DAILY #30 tabs 12/18/23 Unknown Rx ticagrelor 90 mg tablet (Brilinta) 90 mg PO BID #60 tabs 12/18/23 Unknown Rx Allergy/AdvReac Type Severity Reaction Status Date / Time bupropion (From Wellbutrin) Allergy Swelling Verified 06/01/24 09:58 paroxetine (From Paxil) Allergy Swelling Verified 06/01/24 09:58 Family History Other Heart disease Surgical History Stented coronary artery (01/04/23) Social History Smoking Status: Current some day smoker tobacco type: cigarettes substance use type: former substance user Date of last use: Years ago, methamphetamine and marijuana ROS ROS ED Review of Systems ROS Unobtainable: other Constitutional Constitutional ED: Reports lethargy; Denies chills, fever(s), sweats or weight loss Eyes Eyes: Denies blurry vision, change in vision or diplopia ENT ENT ED: Denies rhinorrhea or sore throat Cardiovascular Cardiovascular: Denies chest pain, orthopnea or racing heartbeat Respiratory/Chest Respiratory/Chest: Reports cough, dyspnea and dyspnea on exertion; Denies orthopnea or sputum Gastrointestinal Gastrointestinal: Denies abdominal pain, diarrhea, nausea or vomiting Genitourinary Genitourinary ED: Denies dysuria, hematuria or urinary frequency Musculoskeletal Musculoskeletal: Denies arthralgias, back pain, myalgias or neck pain Integumentary Denies abscess, Abrasions or rash Neurologic Neurologic: Denies headache(s) or weakness Psychiatric Psychiatric: Denies anxiety, depression or suicidal thoughts Endocrine Endocrinology: Denies polydipsia, polyphagia or polyuria Hematologic/Lymphatic Hematologic/Lymphatic: Denies easy bleeding, easy bruising or lymphadenopathy Allergic/Immunologic Allergic/Immunologic ED: Denies mouth swelling, tongue swelling or urticaria EXAM Physical Exam Const Vital Signs: 06/01/24 09:57 06/01/24 09:57 06/01/24 10:36 Temperature 97.1 F L Temperature Source Temporal Pulse Rate 110 H 103 H Respiratory Rate 16 14 Respiratory Effort Respiratory Depth Respiratory Pattern Blood Pressure 181/122 H 162/121 H Blood Pressure Mean 141 134 Pulse Ox 98 97 88 Oxygen Delivery Method Room Air Room Air Room Air Oxygen Flow Rate (L/min) 06/01/24 10:37 06/01/24 10:37 06/01/24 10:42 Temperature Temperature Source Pulse Rate 100 Respiratory Rate 22 H Respiratory Effort Short of Breath Respiratory Depth Shallow Respiratory Pattern Tachypnea Blood Pressure 163/106 H Blood Pressure Mean 125 Pulse Ox 93 94 Oxygen Delivery Method Nasal Cannula Nasal Cannula Nasal Cannula Oxygen Flow Rate (L/min) 2 2 06/01/24 10:57 06/01/24 10:57 06/01/24 12:00 Temperature Temperature Source Pulse Rate 99 97 Respiratory Rate 18 18 Respiratory Effort Respiratory Depth Respiratory Pattern Normal Blood Pressure 148/105 H Blood Pressure Mean 119 Pulse Ox 91 95 Oxygen Delivery Method Nasal Cannula Nasal Cannula Oxygen Flow Rate (L/min) 2 2 Positive well nourished and well developed General Appearance ED: well developed and NAD HEENT Reports TM's clear and moist mucous membranes normocephalic and atraumatic; Negative for trauma or tenderness Tympanic Membrane ED: Yes TM's clear Eyes PERRL and EOMs intact bilaterally General Eye ED: Negative for pale conjunctiva or scleral icterus Neck no lymphadenopathy, supple and no JVD General: Negative for tenderness Chest Wall inspection of chest normal and palpation of chest normal Chest: Negative for tenderness Resp normal respiratory effort and clear to auscultation bilaterally Resp Narrative: Few faint expiratory wheezes bilaterally. No desktop support technician muscle use or retractions. No conversational dyspnea. Effort and Inspection: Negative for respiratory distress or pain with movement Auscultation: wheezes; Negative for rhonchi or diminished lung sounds Cardio regular rate, regular rhythm, S1 normal heart sound, S2 normal heart sound and no murmurs Peripheral Pulses: pulses 2+ throughout GI normal to inspection, nondistended, normoactive bowel sounds, soft to palpation, non-tender, non-distended and no masses Back/Spine no CVA tenderness and no thoracic nor lumbar tenderness Extremity normal to inspection General Extremety ED: Negative for edema General Extremity: Negative for edema Neuro oriented x3, CN's II-XII intact bilaterally, no sensory deficits noted and gait normal Sensorium / Orientation: awake, alert, oriented to person, oriented to place and oriented to time Motor Exam: strength 5/5 throughout and strength abnormal Psych mental status grossly normal Skin no rashes or lesions noted and no wounds MDM MDM MDM Narrative Medical decision making narrative: Patient presents with complaint of dyspnea and tells me that he has been noncompliant with his medications. Despite having a cardiac stent placed 3 months ago he ran out of his Plavix and other medications and has not been taking them. He has not been having chest pain. In the differential would be acute coronary syndrome versus CHF as he also does have a known history of ischemic cardiomyopathy with a reduced ejection fraction. He denies gaining weight. Also in the differential would be PE although I feel this is less likely. IV line established. EKG obtained arrival showed a sinus rhythm with ventricular rate of [address] changes and occasional PVCs. CBC with differential showed a white count of 9.5 with hemoglobin 15.4 and platelet count of 276. Chemistries unremarkable. Troponin was elevated at 198. D-dimer was elevated at 0.63 therefore CTA of the chest was obtained which was negative for PE however did show some mild pulmonary edema and small pleural effusions. Patient was given a dose of Plavix p.o. while in department. I did give him 40 mg of Lasix IV. BT [employer] is pending. Discussed case with cardiology on-call Dr. Iqbal who recommended admission and treatment for CHF but did not feel patient needed to be anticoagulated at this time. Will discuss case with hospitalist to evaluate patient for admission as he was hypoxic on arrival. Patient also given a DuoNeb aerosol on arrival. On 2 L nasal cannula he is having O2 sats in the mid to upper 90s. Lab Data Attestation: I reviewed the patient's lab results. Labs: Laboratory Results - last 24 hr 06/01/24 10:10 WBC 9.5 RBC 4.84 Hgb 15.4 Hct 46.2 MCV 95.5 H MCH 31.8 MCHC 33.3 RDW Std Deviation 47.9 H RDW Coeff of Silvana 13.6 Plt Count 276 MPV 11.1 Immature Gran % (Auto) 0.400 Neut % (Auto) 55.2 Lymph % (Auto) 26.4 [place] % (Auto) 9.8 Eos % (Auto) 7.0 H Baso % (Auto) 1.2 H Absolute Neuts (auto) 5.3 Absolute Lymphs (auto) 2.52 Nucleated RBC % 0 D-Dimer Quant (PE/DVT) 0.63 H* Sodium 139 Potassium 3.7 Chloride 104 Carbon Dioxide 29.0 Anion Gap 5 BUN 13 Creatinine 0.88 Estim Creat Clear Calc 103.46 Est GFR (MDRD) Af Amer 120 Est GFR (MDRD) Non-Af 99 BUN/Creatinine Ratio 14.7 Glucose 105 Calcium 8.5 Troponin I High Sens 198 H* Radiography Diagnostic Testing: Clinical Impression(s) from Imaging Studies Chest X-Ray 06/01/24 11:00 IMPRESSION: Mild interstitial opacities concerning for pulmonary edema. Electronically Signed: Maya Holliday MD at 11:35 EST , Chest CTA 06/01/24 11:07 IMPRESSION: No evidence of pulmonary embolism. Mild pulmonary edema with mild pleural effusions. Electronically Signed: Maya Holliday MD at 12:04 EST , 1 view chest x-ray obtained interpreted by myself as increased markings in both lungs concerning for possible CHF. Radiology in agreement. EKG Initial EKG: Attestation: I personally reviewed and interpreted this EKG as follows: Comments: Sinus rhythm with rate of 104 bpm with occasional PVCs Discharge Plan Triage Chief Complaint: Shortness of Breath ED Provider: Simon Guido Dx/Rx/DC Orders Clinical Impression: Acute dyspnea, Non-ST elevation [place] (NSTEMI), Pulmonary edema, Hypertension, History of medication noncompliance Prescriptions: No Action aspirin 81 mg tablet,chewable 81 mg PO DAILY Qty: 90 3RF lisinopril 10 mg Tablet 10 mg PO DAILY Qty: 30 2RF Brilinta 90 mg Tablet 90 mg PO BID Qty: 60 1RF Jardiance 25 mg Tablet 25 mg PO DAILY Qty: 30 2RF atorvastatin 40 mg tablet 40 mg PO QHS Qty: 90 3RF carvedilol 12.5 mg tablet 12.5 mg PO BIDCM Qty: 180 3RF Primary Care Provider: Pau Hurley Referrals: Pau Hurley, DO [Primary Care Provider] - Print Language: [place] Disposition Disposition: Acute Care Hospital [facility]
[2024-06-01] MEDS: Ipratropium/Albuterol Sulfate 3 ML AMPUL.NEB INHALATION (10:53)
[2024-06-01 10:57] LABS: Absolute Lymphocyte Count 2.52 X10^3/uL (0.83-4.51); Absolute Neutrophil Count 5.3 X10^3/uL (2.0-7.7); Basophil# 0.11 X10^3/uL; Basophil% 1.2 % (0-1); Eosinophil# 0.67 X10^3/uL; Hematocrit 46.2 % (40-54); Hemoglobin 15.4 g/dL (13.0-16.5); Lymphocyte # 2.52 X10^3/ul (0.83-4.51); Lymphocyte % 26.4 % (19-41); Mean Corp Hgb Conc 33.3 g/dL (32-36); Mean Corpuscular Hgb 31.8 pg (27.0-32.0); Mean Corpuscular Volume 95.5 fL (80-94); Mean Platelet Vol. 11.1 fl (6.2-12.0); Monocyte# 0.93 X10^3/uL; Monocyte% 9.8 % (0-10); NRBC Flagged by Analyzer 0 % (0-5); Neutrophil # 5.26 X10^3/uL (2.7-7.7); Neutrophil % 55.2 % (47-70); Platelet Count 276 K/mm3 (150-450); RBC Distribution Width CV 13.6 % (11.6-14.6); RBC Distribution Width SD 47.9 fl (35.1-43.9); Red Blood Count 4.84 M/mm3 (4.6-6.2); White Blood Count 9.5 K/mm3 (4.4-11.0)
--- NOTE | 2024-06-01 11:00 | RAD_ITS ---
HISTORY: dyspnea. TECHNIQUE: XR Chest 1 View. COMPARISON: 12/16/2023. FINDINGS: CARDIOMEDIASTINAL BORDERS: Cardiac silhouette within normal limits in size. Mediastinal contour unremarkable. LUNGS: Mild interstitial opacities. PLEURA: No pleural effusion or pneumothorax seen. OSSEOUS STRUCTURES: Unremarkable. RAD/Chest 1 View (Portable) IMPRESSION: Mild interstitial opacities concerning for pulmonary edema. Electronically Signed: Maya Holliday MD at 11:35 EST ,
[2024-06-01 11:06] LABS: D-Dimer Quantitative (DVT/PE) 0.63 FEU/ug/m (0.27-0.49)
--- NOTE | 2024-06-01 11:07 | CT_ITS ---
HISTORY: dyspnea, elevated d-dimer. TECHNIQUE: CT angiogram of the chest was performed after the intravenous administration of 75 mL Isovue-370. Post-processing of the angiographic images was performed with multiplanar reformation and 3D reconstruction. Individualized dose optimization techniques were used for this CT. 1307 images. COMPARISON: XR same day. FINDINGS: CENTRAL AIRWAYS: Patent. LUNGS: Diffuse septal thickening with mild groundglass opacities in the lower lobes. PLEURA: Mild bilateral pleural effusions. HEART/PERICARDIUM: Heart within normal limits in size with coronary artery disease. No pericardial effusion. PULMONARY ARTERIES: No filling defect. AORTA/VESSELS: No thoracic aortic aneurysm or dissection flap. Mild atherosclerosis. MEDIASTINUM/NAY: Borderline enlarged subcarinal lymph node, which may be reactive. OSSEOUS STRUCTURES: Degenerative changes of the spine. UPPER ABDOMEN: Unremarkable. CT/CTA Chest W/WO Contrast IMPRESSION: No evidence of pulmonary embolism. Mild pulmonary edema with mild pleural effusions. Electronically Signed: Maya Holliday MD at 12:04 EST ,
[2024-06-01 11:24] LABS: Anion Gap 5 (5-15); BUN 13 mg/dL (7-18); BUN/Creat Ratio 14.7 RATIO (10-20); Calcium,Total 8.5 mg/dL (8.5-10.1); Chloride 104 mmol/L (98-107); Creatinine, Serum 0.88 mg/dL (0.70-1.30); EST Glomerular Filtration Rate 99 mL/min (>60); Est Glom Filt Rate - Afr Amer 120 mL/min (>60); Estimated Creatinine Clearance 103.46 ml/min; Glucose 105 mg/dL (74-106); Potassium 3.7 mmol/L (3.5-5.1); Sodium Level 139 mmol/L (136-145); Troponin-I HS 198 pg/mL (3.0-78.0)
[2024-06-01] MEDS: Clopidogrel Bisulfate 75 MG Tablet PO (11:29)
[2024-06-01] MEDS: Furosemide 40 MG/4 ML Vial IV (12:17)
--- NOTE | 2024-06-01 12:27 | HP.PCM.HOS_ITS ---
HPI - General General Date of Admission: 06/01/24 Date of Service: 06/01/24 Chief Complaint: shortness of breath HPI Narrative ELANA ROGERS, is a 44 M with a PMH as outlined who presents via the ED on 06/01/2024 with a complaint of shortness of breath which started on the morning of admission. HE has a histoyr of CAD and recently had a stent placed. HOwever, he had not been compliant with his brilinta or any of his other meds which he says he run out of a month ago. He started feeling short of breath one day prior to admission, and admitted to some nausea and vomiting also. He denied any chest pain, dizziness or lightheadedness or any other symptoms. Reveiw of systems was otherwise negative. He continues to smoke. Vitals in the ED were BP of 148/105, DE of 97, RR of 18 and oxygen sats of 95% on 2L of oxygen by nasal canula. CBC ws unremarkable, and BMP was also unremarkable. Initial troponin was 198. D dimer was 0.63. BNP was pending. CXR showed mild interstitial opacities concerning for pulmonary edema. Chest CT showed no evidence of PE and showed mild pulmonary edema with mild pleural effusions. He is being admitted to be managed for hypoxia due to probable acute on chronic HFrEF and possible nonstemi. [facility] Medical History Nicotine dependence Diabetes mellitus Cardiomyopathy, ischemic Left ventricular systolic dysfunction (LVSD) Dyslipidemia Hypertension Tobacco abuse Non-STEMI (non-ST elevated myocardial infarction) (01/03/23) Home Medications ?Medication ?Instructions ?Recorded ?Last Taken ?Type aspirin 81 mg chewable tablet 81 mg PO DAILY #90 tabs 01/24/23 06/01/24 Rx atorvastatin 40 mg tablet 40 mg PO QHS #90 tabs 12/18/23 Unknown Rx carvedilol 12.5 mg tablet 12.5 mg PO BIDCM #180 tabs 12/18/23 Unknown Rx empagliflozin 25 mg tablet 25 mg PO DAILY #30 tabs 12/18/23 Unknown Rx (Jardiance) lisinopril 10 mg tablet 10 mg PO DAILY #30 tabs 12/18/23 Unknown Rx ticagrelor 90 mg tablet (Brilinta) 90 mg PO BID #60 tabs 12/18/23 Unknown Rx Allergy/AdvReac Type Severity Reaction Status Date / Time bupropion (From Wellbutrin) Allergy Swelling Verified 06/01/24 09:58 paroxetine (From Paxil) Allergy Swelling Verified 06/01/24 09:58 Family History Other Heart disease Surgical History Stented coronary artery (01/04/23) Social History Smoking Status: Current some day smoker tobacco type: cigarettes substance use type: former substance user Date of last use: Years ago, methamphetamine and marijuana ROS Constitutional Constitutional: Reports malaise; Denies anorexia, chills, fatigue, fever(s) or weakness Eyes Eyes: Denies change in vision ENT HEENT: Denies dysphagia, epistaxis, headache(s) or nasal congestion Cardiovascular Cardiovascular: Reports dyspnea on exertion; Denies chest pain, edema, lightheadedness, orthopnea, palpitations, paroxysmal nocturnal dyspnea, rapid heart rate or syncope Respiratory/Chest Respiratory/Chest: Reports cough, dyspnea, shortness of breath at rest, shortness of breath with exertion and wheezing; Denies excessive phlegm production, hemoptysis or productive cough Gastrointestinal Gastrointestinal: Reports nausea and vomiting; Denies abdominal pain, coffee ground emesis or diarrhea Genitourinary Genitourinary: Denies burning urination Neurologic Neurologic: Denies confusion, dizziness, focal weakness or headache(s) Psychiatric Psychiatric: Denies anxiety or depression Hematologic/Lymphatic Hematologic/Lymphatic: Denies anemia Vital Signs Vital Signs Vital Signs: 06/01/24 09:57 06/01/24 09:57 06/01/24 10:36 Temperature 97.1 F L Temperature Source Temporal Pulse Rate 110 H 103 H Respiratory Rate 16 14 Respiratory Effort Respiratory Depth Respiratory Pattern Blood Pressure 181/122 H 162/121 H Blood Pressure Mean 141 134 Pulse Ox 98 97 88 Oxygen Delivery Method Room Air Room Air Room Air Oxygen Flow Rate (L/min) 06/01/24 10:37 06/01/24 10:37 06/01/24 10:42 Temperature Temperature Source Pulse Rate 100 Respiratory Rate 22 H Respiratory Effort Short of Breath Respiratory Depth Shallow Respiratory Pattern Tachypnea Blood Pressure 163/106 H Blood Pressure Mean 125 Pulse Ox 93 94 Oxygen Delivery Method Nasal Cannula Nasal Cannula Nasal Cannula Oxygen Flow Rate (L/min) 2 2 06/01/24 10:57 06/01/24 10:57 06/01/24 12:00 Temperature Temperature Source Pulse Rate 99 97 Respiratory Rate 18 18 Respiratory Effort Respiratory Depth Respiratory Pattern Normal Blood Pressure 148/105 H Blood Pressure Mean 119 Pulse Ox 91 95 Oxygen Delivery Method Nasal Cannula Nasal Cannula Oxygen Flow Rate (L/min) 2 2 Weight Weight: 152 lb 1.903 oz Body Mass Index (BMI) 20.0 Physical Exam Const alert, oriented x3 and no apparent distress General Appearance: cooperative HEENT normocephalic, head/scalp atraumatic, hearing grossly normal bilaterally and moist oral mucous membranes Mouth: oral and palatal mucosa normal Eyes PERRL, EOMs intact bilaterally and conjunctivae normal Neck no lymphadenopathy and supple Resp Resp Narrative: moderately diminished breath sounds bibasally, mild wheezing, no crackles. On 2L of oxygen by nasal canula. Cardio regular rate, regular rhythm, S1 normal heart sound, S2 normal heart sound and no murmurs GI normal to inspection, nondistended, normoactive bowel sounds, soft to palpation, non-tender and non-distended Extremity normal to inspection, full ROM and no clubbing, cyanosis or edema Neuro oriented x3, CN's II-XII intact bilaterally, moves all extremities and no focal motor deficits Sensorium / Orientation: awake and alert Motor Exam: strength 5/5 throughout Psych affect normal Results Lab / Micro Data 06/01/24 10:10 06/01/24 10:10 Labs: Laboratory Results - last 24 hr 06/01/24 10:10: WBC 9.5, RBC 4.84, Hgb 15.4, Hct 46.2, MCV 95.5 H, MCH 31.8, MCHC 33.3, RDW Std Deviation 47.9 H, RDW Coeff of Silvana 13.6, Plt Count 276, MPV 11.1, Immature Gran % (Auto) 0.400, Neut % (Auto) 55.2, Lymph % (Auto) 26.4, [place] % (Auto) 9.8, Eos % (Auto) 7.0 H, Baso % (Auto) 1.2 H, Absolute Neuts (auto) 5.3, Absolute Lymphs (auto) 2.52, Nucleated RBC % 0, D-Dimer Quant (PE/DVT) 0.63 H*, Sodium 139, Potassium 3.7, Chloride 104, Carbon Dioxide 29.0, Anion Gap 5, BUN 13, Creatinine 0.88, Estim Creat Clear Calc 103.46, Est GFR (MDRD) Af Amer 120, Est GFR (MDRD) Non-Af 99, BUN/Creatinine Ratio 14.7, Glucose 105, Calcium 8.5, Troponin I High Sens 198 H* Micro: Microbiology 06/01/24 10:47 Mucosa - Nose SARS-CoV-2, Influenza & RSV (PCR) - Final Imaging Radiology Impression Chest X-Ray 06/01/24 11:00 IMPRESSION: Mild interstitial opacities concerning for pulmonary edema. Electronically Signed: Maya Holliday MD at 11:35 EST , Chest CTA 06/01/24 11:07 IMPRESSION: No evidence of pulmonary embolism. Mild pulmonary edema with mild pleural effusions. Electronically Signed: Maya Holliday MD at 12:04 EST , Assessment & Plan Assessment/Plan (1) Acute dyspnea: (2) Non-ST elevation [place] (NSTEMI): (3) Pulmonary edema: PLAN: Plan #Acute exacerbation of HFrEF * admit to PCU * patient admitted with a complaint of shortness of shortness of breath. He denied any chest pain. * CXR showed evidence of pulmonary edema. * CT chest showed no evidence of PE and showed mild pulmonary edema with mild pleural effusions. * initial troponin was 198. EKG showed no acute ST changes * will cycle troponins * diurese with IV lasix 40mg bid. * monitor intake and output * fluid restriction to 1500cc daily * on emagliflozin #Nonstemi * initial troponin was 198 as above. EKG showed no acute ST changes * cycle troponins * on plavix for stent placed 3 months ago, but has not been compliant with it. Says he run out. He does continue to smoke. * he is therefore at risk of instent restenosis or thrombosis which could account for his symptoms * placed on plavix as well as high intensity statin. Also on aspirin * cardiology consulted * On carvedilol also * # Hypertension: On carvedilol and lisinopril. IV hydralazine as needed # Hyperlipidemia: On statin # #Probable COPD * Patient continues to smoke. He does have some mild wheezing so I suspect he likely has underlying COPD. Breathing treatments bronchodilators. * If wheezing persists will start on steroids. I think is, shortness of breath may likely related to cardiac conditions. * Counseled to quit smoking * DVT prophylaxis: Lovenox CODE STATUS: Full code * Patient counseled extensively about different types of CODE STATUS including full code, DNR CCA and DNR CCA. Patient elects to be full code. * Total [id number] time 16 minutes. Charges/Coding Visit Charges Inpatient E&M: 86588 Init Hosp L3 Procedures Hospitalists Procedures: 14081 Advncd Care Plan 30 Min
[2024-06-01] MEDS: Aspirin 81 MG TAB.CHEW PO (12:37)
[2024-06-01 13:04] LABS: Troponin-I HS 189 pg/mL (3.0-78.0)
--- NOTE | 2024-06-01 13:07 | ED.RN ---
PT ON 2L NC. PT GIVEN LASIX AND HAS BEEN EFFECTIVE. PT READY FOR FLOOR
[2024-06-01 16:48] LABS: Troponin-I HS 187 pg/mL (3.0-78.0)
[2024-06-01] MEDS: Carvedilol 12.5 MG Tablet PO (17:03)
[2024-06-01 18:18] LABS: Bedside Glucose 109 mg/dL (74-106)
--- NOTE | 2024-06-01 20:24 | PCM.HOSP.N ---
Hospitalist Note Patient refusing scheduled aerosols. Will transition to PRN.
[2024-06-01] MEDS: Atorvastatin Calcium 40 MG Tablet PO (21:08)
[2024-06-01 22:01] LABS: Bedside Glucose 114 mg/dL (74-106)
[2024-06-02] VITALS (7 sets, daily range): BP systolic 108–142; BP diastolic 76–98; PULSE 61–76; RESP 15–17; TEMP 36.6–36.8; O2SAT 96–100
[2024-06-02 06:13] LABS: Absolute Lymphocyte Count 2.21 X10^3/uL (0.83-4.51); Absolute Neutrophil Count 3.8 X10^3/uL (2.0-7.7); Basophil# 0.08 X10^3/uL; Eosinophil# 0.73 X10^3/uL; Eosinophils% 9.5 % (0-5); Hematocrit 43.8 % (40-54); Hemoglobin 14.7 g/dL (13.0-16.5); Lymphocyte # 2.21 X10^3/ul (0.83-4.51); Lymphocyte % 28.7 % (19-41); Mean Corp Hgb Conc 33.6 g/dL (32-36); Mean Corpuscular Hgb 31.4 pg (27.0-32.0); Mean Corpuscular Volume 93.6 fL (80-94); Monocyte# 0.92 X10^3/uL; Monocyte% 11.9 % (0-10); NRBC Flagged by Analyzer 0 % (0-5); Neutrophil # 3.75 X10^3/uL (2.7-7.7); Neutrophil % 48.6 % (47-70); Platelet Count 251 K/mm3 (150-450); RBC Distribution Width CV 13.5 % (11.6-14.6); RBC Distribution Width SD 46.5 fl (35.1-43.9); Red Blood Count 4.68 M/mm3 (4.6-6.2); White Blood Count 7.7 K/mm3 (4.4-11.0)
[2024-06-02 06:39] LABS: Anion Gap 4 (5-15); BUN 10 mg/dL (7-18); BUN/Creat Ratio 10.8 RATIO (10-20); Calcium,Total 8.7 mg/dL (8.5-10.1); Chloride 103 mmol/L (98-107); Creatinine, Serum 0.93 mg/dL (0.70-1.30); EST Glomerular Filtration Rate 94 mL/min (>60); Est Glom Filt Rate - Afr Amer 113 mL/min (>60); Estimated Creatinine Clearance 93.35 ml/min; Glucose 136 mg/dL (74-106); Potassium 3.5 mmol/L (3.5-5.1); Sodium Level 135 mmol/L (136-145)
[2024-06-02 07:09] LABS: Hemoglobin A1c 4.7 % (3.8-5.6)
[2024-06-02 07:10] LABS: Bedside Glucose 117 mg/dL (74-106)
[2024-06-02] MEDS: Aspirin 81 MG TAB.CHEW PO (08:29)
[2024-06-02] MEDS: Enoxaparin 40 MG/0.4 ML Syringe SC (08:29)
[2024-06-02] MEDS: Carvedilol 12.5 MG Tablet PO ×2 (08:29→17:22)
[2024-06-02] MEDS: Lisinopril 10 MG Tablet PO (08:29)
--- NOTE | 2024-06-02 11:26 | PN_ITS ---
Subjective Subjective Patient seen and examined. He had no active complaints. Review of systems is otherwise negative. His breathing has improved. Review of systems is otherwise negative. Objective Data Objective Data Vital Signs: Vital Signs Temp Pulse Resp BP Pulse Ox O2 Del Method O2 Flow Rate 97.9 F 74 16 137/98 H 100 Room Air 2 06/02/24 08:18 06/02/24 08:18 06/02/24 08:18 06/02/24 08:18 06/02/24 08:18 06/02/24 08:20 06/02/24 03:40 Oxygen Flow Rate (L/min) 2 Oxygen Delivery Method Room Air Weight: 145 lb 1.027 oz Body Mass Index (BMI) 19.1 Intake & Output: Intake and Output for Last 24 Hours 05/31/24 06/01/24 06/02/24 23:59 23:59 23:59 Intake Total 600 / 600 Output Total 800 / 800 450 / 450 Balance -200 / -200 -450 / -450 Lab / Micro Data 06/02/24 05:50 06/02/24 05:50 Labs: Laboratory Results - last 24 hr 06/01/24 12:14: Troponin I High Sens 189 H* 06/01/24 16:05: Troponin I High Sens 187 H* 06/01/24 17:02: POC Glucose 109 H 06/01/24 21:40: POC Glucose 114 H 06/02/24 05:50: WBC 7.7, RBC 4.68, Hgb 14.7, Hct 43.8, MCV 93.6, MCH 31.4, MCHC 33.6, RDW Std Deviation 46.5 H, RDW Coeff of Silvana 13.5, Plt Count 251, MPV 11.0, Immature Gran % (Auto) 0.300, Neut % (Auto) 48.6, Lymph % (Auto) 28.7, [place] % (Auto) 11.9 H, Eos % (Auto) 9.5 H, Baso % (Auto) 1.0, Absolute Neuts (auto) 3.8, Absolute Lymphs (auto) 2.21, Nucleated RBC % 0, Sodium 135 L, Potassium 3.5, Chloride 103, Carbon Dioxide 28.0, Anion Gap 4 L, BUN 10, Creatinine 0.93, Estim Creat Clear Calc 93.35, Est GFR (MDRD) Af Amer 113, Est GFR (MDRD) Non-Af 94, BUN/Creatinine Ratio 10.8, Glucose 136 H, Hemoglobin A1c 4.7, Calcium 8.7 06/02/24 06:52: POC Glucose 117 H Micro: Microbiology 06/01/24 10:47 Mucosa - Nose SARS-CoV-2, Influenza & RSV (PCR) - Final Radiography Diagnostic Testing: Radiology Impression Chest X-Ray 06/01/24 11:00 IMPRESSION: Mild interstitial opacities concerning for pulmonary edema. Electronically Signed: Maya Holliday MD at 11:35 EST , Chest CTA 06/01/24 11:07 IMPRESSION: No evidence of pulmonary embolism. Mild pulmonary edema with mild pleural effusions. Electronically Signed: Maya Holliday MD at 12:04 EST , Physical Exam Const alert, oriented x3 and no apparent distress General Appearance: cooperative HEENT normocephalic, head/scalp atraumatic, hearing grossly normal bilaterally and moist oral mucous membranes Eyes PERRL, EOMs intact bilaterally and conjunctivae normal Neck no lymphadenopathy and supple Resp Resp Narrative: moderately diminished breath sounds bibasally, mild wheezing, no crackles. On 2L of oxygen by nasal canula. Cardio regular rate, regular rhythm, S1 normal heart sound, S2 normal heart sound and no murmurs GI normal to inspection, nondistended, normoactive bowel sounds, soft to palpation, non-tender and non-distended Extremity normal to inspection, full ROM, normal capillary refill and no clubbing, cyanosis or edema Skin General Skin Exam: no breakdown Neuro oriented x3, CN's II-XII intact bilaterally, moves all extremities and no focal motor deficits Sensorium / Orientation: awake and alert Motor Exam: strength 5/5 throughout Psych thought process normal, cooperative and affect normal Appearance: appropriate Assessment & Plan Assessment/Plan (1) Acute dyspnea: (2) Non-ST elevation CO (NSTEMI): (3) Pulmonary edema: PLAN: Plan #Acute exacerbation of HFrEF * admit to PCU * patient admitted with a complaint of shortness of shortness of breath. He denied any chest pain. * CXR showed evidence of pulmonary edema. * CT chest showed no evidence of PE and showed mild pulmonary edema with mild pleural effusions. * initial troponin was 198. EKG showed no acute ST changes. Repeat troponins trended down slightly to 189 to 187. * diurese with IV lasix 40mg bid. * monitor intake and output * fluid restriction to 1500cc daily * on emagliflozin * cardiology consulted; await recs. #Nonstemi * initial troponin was 198 as above. EKG showed no acute ST changes * cycle troponins * on plavix for stent placed 3 months ago, but has not been compliant with it. Says he run out. He does continue to smoke. * he is therefore at risk of instent restenosis or thrombosis which could account for his symptoms * placed on plavix as well as high intensity statin. Also on aspirin * cardiology consulted; await rec's. * On carvedilol also * # Hypertension: On carvedilol and lisinopril. IV hydralazine as needed # Hyperlipidemia: On statin #Probable COPD * Patient continues to smoke. He does have some mild wheezing so I suspect he likely has underlying COPD. Breathing treatments bronchodilators. * If wheezing persists will start on steroids. I think is, shortness of breath may likely related to cardiac conditions. * Counseled to quit smoking * DVT prophylaxis: Lovenox CODE STATUS: Full code * Charges/Coding Visit Charges Inpatient E&M: 32348 Subs Hosp L2
[2024-06-02 11:59] LABS: Bedside Glucose 105 mg/dL (74-106)
--- NOTE | 2024-06-02 12:00 | CASEMGMT ---
CARINA RANKIN Assessment Face to Face with patient for initial transition planning/care coordination assessment. CARINA RANKIN introduced self and role at [facility], pt voices understanding. Pt is A&Ox4 and is resting comfortably in bed and is calm. Care providers, pharmacy, and demographics verified. Admitting dx: NSTEMI LACE Strata: 2 PCP: Pau Hurley @ the [facility] Specialists: Denies Preferred Pharmacy: [facility] [place] Insurance: [employer]. Prescription Benefit: States yes. Per chart review, the pt utilized the Rx program in December. Pt states that his current insurance now helps pay for medications and that he will also be getting insurance through his work starting next month. Denies concerns at this time. LNOK: Aaron Foster (Father) Living Arrangements: Pt lives with 2 roommates in a 2 story home with one step to enter ADLs/IADLs: Ind Transportation: Pt roommates and friends when outside of walking distance for the pt. Denies concerns at this time DME: Pt states that he gave his BGM to his father and that he needs another one. CM to provide pt with Rx. Denies further DME uses or needs HHC/SNF: Denies Hx or needs ETOH/ Smoking/ Illicit Drug use: Pt states that he drinks a couple beers 2x/week. States smoking less than 1/2 pack of cigarettes per day. States daily marijuana use. Denies wanting resources for this. Pt?s goal: Return home Plan: Home with DME. 6-click is 24. Pt states that he feels safe returning home with his 2 roommates at time of DC and denies further question or concerns at this time. Pt denies the need for OP Tx or CNN. Report given to PRODUCTION COST ESTIMATOR CM. Myrtle Horvath RN, CM
--- NOTE | 2024-06-02 13:45 | PCM.CONS.C ---
Assessment & Plan Assessment/Plan (1) Pulmonary edema: QUALIFIERS: Chronicity: acute Qualified Code(s): J81.0 - Acute pulmonary edema PLAN: Improved with Lasix. Agree with current medical regimen. It would be reasonable to keep the patient on 20 mg p.o. daily of Lasix. Compliance with medical regimen was emphasized to the patient and patient understands. (2) Non-ST elevation NJ (NSTEMI): PLAN: Appears to be type II NJ secondary to CHF. No further specific workup required for this. PLAN: Plan Follow-up with cardiology as an outpatient. We will sign off at this time. If we can be of any further assistance please let us know. HPI Consult Data Date of Consult: 06/02/24 HPI Narrative HPI Narrative: ELANA ROGERS, is a 44 M who presents with shortness of breath. Patient apparently woke up from sleep short of breath and was walking around and felt a little better. He tried to lie down again and felt very short of breath and had to come to the emergency room. Patient has history of CAD with a stent to the circumflex in December of this year. He had a stent to the LAD prior to that. He had apparently been noncompliant with his medications. He has history of LV dysfunction as well. Patient was started on IV Lasix upon presentation and his shortness of breath is improved significantly. He is lying down comfortably and does not have any shortness of breath at this time. [facility] Medical History Nicotine dependence Diabetes mellitus Cardiomyopathy, ischemic Left ventricular systolic dysfunction (LVSD) Dyslipidemia Hypertension Tobacco abuse Non-STEMI (non-ST elevated myocardial infarction) (01/03/23) Home Medications ?Medication ?Instructions ?Recorded ?Last Taken ?Type aspirin 81 mg chewable tablet 81 mg PO DAILY #90 tabs 01/24/23 06/01/24 Rx atorvastatin 40 mg tablet 40 mg PO QHS #90 tabs 12/18/23 Unknown Rx carvedilol 12.5 mg tablet 12.5 mg PO BIDCM #180 tabs 12/18/23 Unknown Rx empagliflozin 25 mg tablet 25 mg PO DAILY #30 tabs 12/18/23 Unknown Rx (Jardiance) lisinopril 10 mg tablet 10 mg PO DAILY #30 tabs 12/18/23 Unknown Rx ticagrelor 90 mg tablet (Brilinta) 90 mg PO BID #60 tabs 12/18/23 Unknown Rx Allergy/AdvReac Type Severity Reaction Status Date / Time bupropion (From Wellbutrin) Allergy Swelling Verified 06/01/24 09:58 paroxetine (From Paxil) Allergy Swelling Verified 06/01/24 09:58 Family History Other Heart disease Surgical History Stented coronary artery (01/04/23) Social History Smoking Status: Current some day smoker tobacco type: cigarettes substance use type: former substance user Date of last use: Years ago, methamphetamine and marijuana Physical Exam Const alert and oriented x3 HEENT normocephalic Eyes no scleral icterus Resp clear to auscultation bilaterally Cardio regular rate Extremity no pedal edema Risk Stratification Risk Stratification Applicable: No Charges/Coding Visit Charges Inpatient E&M: 94386 Init Hosp L1 Objective Data Vital Signs: Vital Signs Temp Pulse Resp BP Pulse Ox O2 Del Method O2 Flow Rate 98.2 F 74 16 137/98 H 100 Room Air 2 06/02/24 12:00 06/02/24 12:00 06/02/24 12:00 06/02/24 12:00 06/02/24 12:00 06/02/24 12:00 06/02/24 03:40 Oxygen Flow Rate (L/min) 2 Oxygen Delivery Method Room Air Weight: 145 lb 1.027 oz Body Mass Index (BMI) 19.1 Intake & Output: Intake and Output for Last 24 Hours 05/31/24 06/01/24 06/02/24 23:59 23:59 23:59 Intake Total 600 / 600 360 / 360 Output Total 800 / 800 450 / 450 Balance -200 / -200 -90 / -90 Lab / Micro Data 06/02/24 05:50 06/02/24 05:50 Labs: Laboratory Results - last 24 hr 06/01/24 16:05: Troponin I High Sens 187 H* 06/01/24 17:02: POC Glucose 109 H 06/01/24 21:40: POC Glucose 114 H 06/02/24 05:50: WBC 7.7, RBC 4.68, Hgb 14.7, Hct 43.8, MCV 93.6, MCH 31.4, MCHC 33.6, RDW Std Deviation 46.5 H, RDW Coeff of Silvana 13.5, Plt Count 251, MPV 11.0, Immature Gran % (Auto) 0.300, Neut % (Auto) 48.6, Lymph % (Auto) 28.7, [place] % (Auto) 11.9 H, Eos % (Auto) 9.5 H, Baso % (Auto) 1.0, Absolute Neuts (auto) 3.8, Absolute Lymphs (auto) 2.21, Nucleated RBC % 0, Sodium 135 L, Potassium 3.5, Chloride 103, Carbon Dioxide 28.0, Anion Gap 4 L, BUN 10, Creatinine 0.93, Estim Creat Clear Calc 93.35, Est GFR (MDRD) Af Amer 113, Est GFR (MDRD) Non-Af 94, BUN/Creatinine Ratio 10.8, Glucose 136 H, Hemoglobin A1c 4.7, Calcium 8.7 06/02/24 06:52: POC Glucose 117 H 06/02/24 11:41: POC Glucose 105 Micro: Microbiology 06/01/24 10:47 Mucosa - Nose SARS-CoV-2, Influenza & RSV (PCR) - Final Cardiology Labs/Tests 06/02/24 05:50: WBC 7.7, RBC 4.68, Hgb 14.7, Hct 43.8, MCV 93.6, MCH 31.4, MCHC 33.6, Plt Count 251, MPV 11.0, Immature Gran % (Auto) 0.300, Neut % (Auto) 48.6, Lymph % (Auto) 28.7, [place] % (Auto) 11.9 H, Eos % (Auto) 9.5 H, Baso % (Auto) 1.0, Absolute Neuts (auto) 3.8, Nucleated RBC % 0, Sodium 135 L, Potassium 3.5, Chloride 103, Carbon Dioxide 28.0, Anion Gap 4 L, BUN 10, Creatinine 0.93, Est GFR (MDRD) Af Amer 113, Est GFR (MDRD) Non-Af 94, BUN/Creatinine Ratio 10.8, Glucose 136 H, Hemoglobin A1c 4.7, Calcium 8.7 Rhythm: EKG: ECHO: Stress Test: Cardiac Cath: PCI: CT Surgery: Holter monitor: EPS: PPM: CXR: Chest CT Scan:
--- NOTE | 2024-06-02 14:34 | CHAPLAIN ---
Type of Pastoral Visit _x__ Initial Visit ___ Follow-up Visit ___ On-call Visit ___ General Patient Visit ___ Spiritual Assessment ___ Family Conference ___ Bereavement ___ Rapid Response ___ Code Blue ___ Other (describe below) Pastoral Care Referral From _x__ Patient ___ Family ___ Nurse ___ Physician ___ Molding Supervisor ___ Educational Advisor ___ Other (describe below) Sacrament/Intervention ___ Active listening ___ Anointing ___ Christianity ___ Bereavement ___ Communion ___ Charu exploration ___ ___ Life review ___ Prayer ___ Reconciliation ___ Sacrament of Sick _x__ Supportive presence ___ Wedding ___ Other (describe below) Pastoral Comments patient is watching TV; pt is offered support and presence; pt states that he is doing fine and has no concerns right now
--- NOTE | 2024-06-02 16:19 | DCINST_ITS ---
Discharge Instructions Diet Discharge Diet: Low fat / Low cholesterol DC O2, CPAP, BIPAP needs Additional Home O2 Discharge instructions: No Dressing / Incision Discharge Activity: Return to Normal Activity Weight Bearing Status: Weight bearing as tolerated Dressing / Incision Call your doctor if you observe: Fever of 101 or Higher, Shortness of breath, Dizziness, Swelling in the ankles and Chest pain Follow Up Care Test Results: Test results from this visit will be discussed in further detail at your follow- up appointment, if applicable. Discharge Plan Admission Admit Date/Time: 06/01/24 12:43 Primary Reason for Your Visit: heart failure exacerbation Attending Provider: Liss Wallace Primary Care Provider: Pau Hurley Consulting Providers: Anita Iqbal Instructions Patient Instructions: Heart Failure: Know Your Baselines Discharge Orders/Prescriptions Prescriptions: New atorvastatin 40 mg Tablet 40 mg PO QHS Qty: 30 5RF carvedilol 12.5 mg Tablet 12.5 mg PO BIDCM Qty: 60 5RF lisinopril 10 mg Tablet 10 mg PO DAILY Qty: 30 5RF aspirin 81 mg Tablet,Chewable 81 mg PO DAILYCM Qty: 30 4RF furosemide [Lasix] 20 mg tablet 20 mg PO QODAY Qty: 30 5RF potassium chloride 10 mEq tablet extended release 10 meq PO DAILY Qty: 30 2RF Continued aspirin 81 mg tablet,chewable 81 mg PO DAILY Qty: 90 3RF Brilinta 90 mg Tablet 90 mg PO BID Qty: 60 3RF lisinopril 10 mg Tablet 10 mg PO DAILY Qty: 30 2RF Jardiance 25 mg Tablet 25 mg PO DAILY Qty: 30 2RF atorvastatin 40 mg tablet 40 mg PO QHS Qty: 90 3RF carvedilol 12.5 mg tablet 12.5 mg PO BIDCM Qty: 180 3RF Referrals / Follow Up: Gilmar Sandoval MD [Med Staff - Active Staff] - Within 1 Week Pau Hurley DO [Primary Care Provider] - Within 1 Week Disposition Disposition (needs filled in before D/C Order can be placed): Home, Self Care
--- NOTE | 2024-06-02 16:20 | DS.PCM_ITS ---
Providers Date of Admission: 06/01/24 Date of Discharge: 06/02/24 Primary Care Physician: Pau Hurley [facility], DO Consultations 06/01/24 13:32 Consult: Cardiology Routine Consulting Provider: Anita Iqbal Reason for Consult: nonstemi EMERGENT Consult: No MD Notified: Yes Date Notified: 06/01/24 Time Notified: 12:49 Method of Notification: Text Reason For Visit: NONSTEMI, HFREF Diagnosis Discharge Diagnosis (1) Pulmonary edema: Status: Acute Code(s): J81.1 - Chronic pulmonary edema Qualifiers: Chronicity: acute Qualified Code(s): J81.0 - Acute pulmonary edema (2) Non-ST elevation OK (NSTEMI): Status: Acute Code(s): I21.4 - Non-ST elevation (NSTEMI) myocardial infarction Plan #Acute exacerbation of HFrEF * admit to PCU * patient admitted with a complaint of shortness of shortness of breath. He denied any chest pain. * CXR showed evidence of pulmonary edema. * CT chest showed no evidence of PE and showed mild pulmonary edema with mild pleural effusions. * initial troponin was 198. EKG showed no acute ST changes. Repeat troponins trended down slightly to 189 to 187. * diurese with IV lasix 40mg bid. * monitor intake and output * fluid restriction to 1500cc daily * on emagliflozin * cardiology consulted; await recs. #Nonstemi * initial troponin was 198 as above. EKG showed no acute ST changes * cycle troponins * on plavix for stent placed 3 months ago, but has not been compliant with it. Says he run out. He does continue to smoke. * he is therefore at risk of instent restenosis or thrombosis which could account for his symptoms * placed on plavix as well as high intensity statin. Also on aspirin * cardiology consulted; await rec's. * On carvedilol also * # Hypertension: On carvedilol and lisinopril. IV hydralazine as needed # Hyperlipidemia: On statin #Probable COPD * Patient continues to smoke. He does have some mild wheezing so I suspect he likely has underlying COPD. Breathing treatments bronchodilators. * If wheezing persists will start on steroids. I think is, shortness of breath may likely related to cardiac conditions. * Counseled to quit smoking * DVT prophylaxis: Lovenox CODE STATUS: Full code * Medications at Discharge Home Medications aspirin 81 mg chewable tablet 81 mg PO DAILY #90 tabs 01/24/23 atorvastatin 40 mg tablet 40 mg PO QHS #90 tabs 12/18/23 carvedilol 12.5 mg tablet 12.5 mg PO BIDCM #180 tabs 12/18/23 empagliflozin 25 mg tablet (Jardiance) 25 mg PO DAILY #30 tabs 12/18/23 lisinopril 10 mg tablet 10 mg PO DAILY #30 tabs 12/18/23 aspirin 81 mg chewable tablet 81 mg PO DAILYCM #30 tabs 06/02/24 atorvastatin 40 mg tablet 40 mg PO QHS #30 tabs 06/02/24 carvedilol 12.5 mg tablet 12.5 mg PO BIDCM #60 tabs 06/02/24 furosemide 20 mg tablet (Lasix) 20 mg PO QODAY #30 tabs 06/02/24 lisinopril 10 mg tablet 10 mg PO DAILY #30 tabs 06/02/24 potassium chloride 10 mEq tablet,extended release 10 meq PO DAILY #30 tabs 06/02/24 ticagrelor 90 mg tablet (Brilinta) 90 mg PO BID #60 tabs 06/02/24 Hospital Course Operations None Procedures None Summary of Care Provided Minutes Spent on Discharge: 55 Hospital Course: ELANA ROGERS, is a 44 M with a PMH as outlined who presents via the ED on 06/01/2024 with a complaint of shortness of breath which started on the morning of admission. HE has a histoyr of CAD and recently had a stent placed. HOwever, he had not been compliant with his brilinta or any of his other meds which he says he run out of a month ago. He started feeling short of breath one day prior to admission, and admitted to some nausea and vomiting also. He denied any chest pain, dizziness or lightheadedness or any other symptoms. Review of systems was otherwise negative. He continues to smoke. Vitals in the ED were BP of 148/105, IN of 97, RR of 18 and oxygen sats of 95% on 2L of oxygen by nasal canula. CBC ws unremarkable, and BMP was also unremarkable. Initial troponin was 198. D dimer was 0.63. BNP was pending. CXR showed mild interstitial opacities concerning for pulmonary edema. Chest CT showed no evidence of PE and showed mild pulmonary edema with mild pleural effusions. He was admitted to be managed for hypoxia due to probable acute on chronic HFrEF and possible nonstemi. He was diuresed with IV Lasix. Cardiology did not want him to be anticoagulated. He was placed on Plavix which she had not been taking. Patient said he had not been taking any of his meds apart from aspirin because he had run out and are not followed up with his PCP or superintendent division. Cardiology reviewed patient and thought the elevation in the troponin was likely a type II OK due to CHF exacerbation and recommended no further specific workup. Patient shortness of breath improved on the Lasix and he felt much better. Cardiology recommended that he could be discharged home on p.o. Lasix 20 mg daily. He was counseled on strict compliance with his medication. Patient was discharged home on 06/02/2024. He was given a prescription for his p.o. aspirin and Brilinta as well as high intensity statin and carvedilol. He was also given a prescription for p.o. Lasix 20 mg daily as well as p.o. potassium chloride 10 mEq daily. He is to follow-up with his primary care doctor and follow-up with cardiology within 1 to 2 weeks. Patient seen and examined prior to discharge. He felt much better and had no complaints. He was on room air. Review of systems otherwise negative. Labs and vitals reviewed. Home medication reviewed and reconciled. Physical Exam Const alert, oriented x3 and no apparent distress General Appearance: cooperative and comfortable HEENT normocephalic, head/scalp atraumatic, hearing grossly normal bilaterally and moist oral mucous membranes Mouth: oral and palatal mucosa normal Eyes PERRL, EOMs intact bilaterally and conjunctivae normal Neck no lymphadenopathy and supple Resp normal respiratory effort, no retractions, no use of accessory muscles and clear to auscultation bilaterally Cardio regular rate, regular rhythm, S1 normal heart sound, S2 normal heart sound and no murmurs GI normal to inspection, nondistended, normoactive bowel sounds, soft to palpation, non-tender and non-distended Extremity normal to inspection, full ROM, normal capillary refill and no clubbing, cyanosis or edema Skin no rashes or lesions noted General Skin Exam: no breakdown Neuro oriented x3, CN's II-XII intact bilaterally, moves all extremities and no focal motor deficits Sensorium / Orientation: awake and alert Motor Exam: strength 5/5 throughout Psych thought process normal, cooperative and affect normal Appearance: appropriate Weight / BMI Weight Weight: 145 lb 1.027 oz Body Mass Index (BMI) 19.1 ABG / Lab / Microbiology Data 06/02/24 05:50 06/02/24 05:50 Laboratory: Laboratory Results - last 24 hr 06/01/24 16:05: Troponin I High Sens 187 H* 06/01/24 17:02: POC Glucose 109 H 06/01/24 21:40: POC Glucose 114 H 06/02/24 05:50: WBC 7.7, RBC 4.68, Hgb 14.7, Hct 43.8, MCV 93.6, MCH 31.4, MCHC 33.6, RDW Std Deviation 46.5 H, RDW Coeff of Silvana 13.5, Plt Count 251, MPV 11.0, Immature Gran % (Auto) 0.300, Neut % (Auto) 48.6, Lymph % (Auto) 28.7, [place] % (Auto) 11.9 H, Eos % (Auto) 9.5 H, Baso % (Auto) 1.0, Absolute Neuts (auto) 3.8, Absolute Lymphs (auto) 2.21, Nucleated RBC % 0, Sodium 135 L, Potassium 3.5, Chloride 103, Carbon Dioxide 28.0, Anion Gap 4 L, BUN 10, Creatinine 0.93, Estim Creat Clear Calc 93.35, Est GFR (MDRD) Af Amer 113, Est GFR (MDRD) Non-Af 94, BUN/Creatinine Ratio 10.8, Glucose 136 H, Hemoglobin A1c 4.7, Calcium 8.7 06/02/24 06:52: POC Glucose 117 H 06/02/24 11:41: POC Glucose 105 Microbiology: Microbiology 06/01/24 10:47 Mucosa - Nose SARS-CoV-2, Influenza & RSV (PCR) - Final D/C Instructions Discharge Diet: Low fat / Low cholesterol Discharge Activity: Return to Normal Activity Weight Bearing Status: Weight bearing as tolerated Call your doctor if you observe: Fever of 101 or Higher, Shortness of breath, Dizziness, Swelling in the ankles and Chest pain DC O2, CPAP, BIPAP Needs Additional Home O2 Discharge instructions: No DC home with Oxygen: No Meaningful Use Info Meaningful Use Meaningful Use Diagnoses (Choose all that apply): CHF CHF HUMZA/ARB ordered at discharge?: Yes Documented LVEF (%): 35 Ischemic Stroke Statin Dosing Therapy Reference: STATIN DOSE THERAPY REFERENCE: * Patients > 75 years receive moderate or high dose statin therapy. * Patients 75 years or YOUNGER should receive HIGH intensity statin dose unless contraindicated. You will be required to document reason for non-treatment if statin daily dose does not meet guidelines. HIGH DOSE STATIN THERAPY DAILY Atorvastatin > than or = to 40 mg Rosuvastatin > than or = to 20 mg Amlodipine + Atorvastatin > than or = to 2.5/40 mg Ezetimibe + Simvastatin 10/80 mg Simvastatin 80mg Discharge Plan Admission Admit Date/Time: 06/01/24 12:43 Primary Reason for Your Visit: heart failure exacerbation Attending Provider: Liss Wallace Primary Care Provider: Pau Hurley Consulting Providers: Anita Iqbal Instructions Patient Instructions: Heart Failure: Know Your Baselines Discharge Orders/Prescriptions Prescriptions: New atorvastatin 40 mg Tablet 40 mg PO QHS Qty: 30 5RF carvedilol 12.5 mg Tablet 12.5 mg PO BIDCM Qty: 60 5RF lisinopril 10 mg Tablet 10 mg PO DAILY Qty: 30 5RF aspirin 81 mg Tablet,Chewable 81 mg PO DAILYCM Qty: 30 4RF furosemide [Lasix] 20 mg tablet 20 mg PO QODAY Qty: 30 5RF potassium chloride 10 mEq tablet extended release 10 meq PO DAILY Qty: 30 2RF Continued aspirin 81 mg tablet,chewable 81 mg PO DAILY Qty: 90 3RF Brilinta 90 mg Tablet 90 mg PO BID Qty: 60 3RF lisinopril 10 mg Tablet 10 mg PO DAILY Qty: 30 2RF Jardiance 25 mg Tablet 25 mg PO DAILY Qty: 30 2RF atorvastatin 40 mg tablet 40 mg PO QHS Qty: 90 3RF carvedilol 12.5 mg tablet 12.5 mg PO BIDCM Qty: 180 3RF Referrals / Follow Up: Gilmar Sandoval MD [Med Staff - Active Staff] - Within 1 Week Pau Hurley, [Primary Care Provider] - Within 1 Week Disposition Disposition (needs filled in before D/C Order can be placed): Home, Self Care Charges/Coding Visit Charges Inpatient E&M: 44850 Disch Hosp >30min
[2024-06-02 17:42] LABS: Bedside Glucose 114 mg/dL (74-106)
[2024-06-02 18:04] LABS: BNP,B-Type NATRIURETIC PEPTIDE 305.4 pg/mL (0-100)
== END 2024-06-02 17:43 | disposition home or self-care (01) | DRG 194 ==
LOC: ED 12:25 → PCU 13:00
PROVIDERS: Admitting Provider Student in an Organized Health Care Education/Training Program; Emergency Provider Emergency Medicine; PCP Family Medicine; Visit Provider Student in an Organized Health Care Education/Training Program
DX: I11.0 Hypertensive heart disease with heart failure (principal); I21.4 Non-ST elevation (NSTEMI) myocardial infarction; Z66 Do not resuscitate; E11.9 Type 2 diabetes mellitus without complications; J44.9 Chronic obstructive pulmonary disease, unspecified; I50.23 Acute on chronic systolic (congestive) heart failure; J81.0 Acute pulmonary edema; J90 Pleural effusion, not elsewhere classified; I42.9 Cardiomyopathy, unspecified; F17.210 Nicotine dependence, cigarettes, uncomplicated; I25.10 Atherosclerotic heart disease of native coronary artery without angina pectoris; E78.5 Hyperlipidemia, unspecified; I25.2 Old myocardial infarction; I49.3 Ventricular premature depolarization; Z79.84 Long term (current) use of oral hypoglycemic drugs; R09.02 Hypoxemia; Z79.02 Long term (current) use of antithrombotics/antiplatelets; Z95.5 Presence of coronary angioplasty implant and graft; Z79.82 Long term (current) use of aspirin
CPT/HCPCS: 36415; 71045; 71275; 80048; 82962; 83036; 83880; 84484; 85025; 85379; 87631; 93005; 94640; 99285; 99406; Q9967; A4216; J1940

== ENCOUNTER 2024-09-05 13:28 | Emergency (ER) | payer BC, MEDICAID, SELFPAY ==
[2024-09-05 13:29] VITALS: BP 151/98; PULSE 93; RESP 18; TEMP 36.8; O2SAT 98; BMI 19.4
--- NOTE | 2024-09-05 15:08 | ED.VIS.BACK ---
HPI History of Present Illness Chief Complaint: Back Informant: patient Onset/Context/Timing Onset: Yesterday Context: Gradual Onset Timing: Continuous Quality: Dull Location: Lumbar Worsened by: improves with Nothing Relieved by: Nothing Associated Symptoms Associated Symptoms: Tingling (Left hand); Negative for Numbness, Fever, Abdominal Pain, Dysuria, Unable to Ambulate, Unable to Transfer, Urinary Retention, Urinary Incontinence, Constipation or Fecal Incontinence Narrative Narrative: Patient presents with back pain and leg cramping that began last night. Patient states it is gradually gotten worse. Patient states it is constant. Patient describes it as dull. Patient states that his pain is mainly over his lower lumbar area. Patient states nothing makes it better and nothing makes it worse. Patient admits to some tingling into his left hand. Patient admits to some subjective chills. Patient is concerned that he could be dehydrated and may have a viral infection. Patient denies any trauma or injury. Patient denies any weakness. [facility] Medical History History of medication noncompliance Hypertension Pulmonary edema Nicotine dependence Diabetes mellitus Cardiomyopathy, ischemic Left ventricular systolic dysfunction (LVSD) Dyslipidemia Hypertension Tobacco abuse Non-STEMI (non-ST elevated myocardial infarction) (01/03/23) Home Medications ?Medication ?Instructions ?Recorded ?Last Taken ?Type aspirin 81 mg chewable tablet 81 mg PO DAILY #90 tabs 01/24/23 06/01/24 Rx atorvastatin 40 mg tablet 40 mg PO QHS #90 tabs 12/18/23 Unknown Rx carvedilol 12.5 mg tablet 12.5 mg PO BIDCM #180 tabs 12/18/23 Unknown Rx empagliflozin 25 mg tablet 25 mg PO DAILY #30 tabs 12/18/23 Unknown Rx (Jardiance) lisinopril 10 mg tablet 10 mg PO DAILY #30 tabs 12/18/23 Unknown Rx aspirin 81 mg chewable tablet 81 mg PO DAILYCM #30 tabs 06/02/24 Unknown Rx atorvastatin 40 mg tablet 40 mg PO QHS #30 tabs 06/02/24 Unknown Rx carvedilol 12.5 mg tablet 12.5 mg PO BIDCM #60 tabs 06/02/24 Unknown Rx furosemide 20 mg tablet (Lasix) 20 mg PO QODAY #30 tabs 06/02/24 Unknown Rx lisinopril 10 mg tablet 10 mg PO DAILY #30 tabs 06/02/24 Unknown Rx potassium chloride 10 mEq 10 meq PO DAILY #30 tabs 06/02/24 Unknown Rx tablet,extended release ticagrelor 90 mg tablet (Brilinta) 90 mg PO BID #60 tabs 06/02/24 Unknown Rx Allergy/AdvReac Type Severity Reaction Status Date / Time bupropion (From Wellbutrin) Allergy Swelling Verified 09/05/24 13:28 paroxetine (From Paxil) Allergy Swelling Verified 09/05/24 13:28 Family History Other Heart disease Surgical History Stented coronary artery (01/04/23) Social History Smoking Status: Current some day smoker tobacco type: cigarettes substance use type: former substance user Date of last use: Years ago, methamphetamine and marijuana ROS ROS ED Constitutional Constitutional ED: Reports chills and subjective; Denies fever(s) Eyes Eyes: Denies blurry vision or change in vision ENT ENT ED: Denies rhinorrhea or sore throat Cardiovascular Cardiovascular: Denies chest pain or palpitations Respiratory/Chest Respiratory/Chest: Denies cough or dyspnea Gastrointestinal Gastrointestinal: Denies nausea or vomiting Genitourinary Genitourinary ED: Denies dysuria or hematuria Musculoskeletal Musculoskeletal: Reports back pain; Denies neck pain Integumentary Denies abscess or rash Neurologic Neurologic: Denies headache(s) or weakness Allergic/Immunologic Allergic/Immunologic ED: Denies mouth swelling or urticaria EXAM Physical Exam Const Vital Signs: 09/05/24 13:29 Temperature 98.3 F Temperature Source Oral Pulse Rate 93 Respiratory Rate 18 Blood Pressure 151/98 H Blood Pressure Mean 115 Pulse Ox 98 Positive well nourished and well developed Constitutional Narrative: BMI is 19.5 General Appearance ED: well developed and NAD HEENT Reports moist mucous membranes Neck supple and no JVD Cardio regular rate and regular rhythm GI soft to palpation, non-tender and non-distended Back/Spine normal to inspection Back/Spine Narrative: There is mild tenderness over the lumbar paraspinal muscles. There is no midline tenderness. There is no bony crepitus or step-off. There is good range of motion. Strength is 5/5 bilaterally in the lower extremities. There are no sensory deficits noted. Lumbar Spine / Lower Back: straight leg raise negative bilaterally Extremity normal to inspection Neuro oriented x3 and no sensory deficits noted Sensorium / Orientation: alert Motor Exam: strength 5/5 throughout MDM MDM MDM Narrative Medical decision making narrative: Differential diagnosis includes dehydration, electrolyte abnormality, viral illness. CBC will be obtained to assess for leukocytosis and anemia. Basic metabolic profile will be obtained to assess for electrolyte abnormality and renal function. COVID-19, influenza, and RSV PCR will be obtained to assess for viral illness. Lab Data Attestation: I reviewed the patient's lab results. Lab results narrative: CBC was reviewed. There is a leukocytosis of 20.8. The remainder is within normal limits. Basic metabolic profile was reviewed. Sodium was slightly low at 131 and chloride was slightly low at 97. Anion gap was normal. CO2 was normal. Glucose was 109. The remainder is within normal limits. COVID-19 PCR was reviewed and was negative. Influenza PCR was reviewed and was negative for influenza A and influenza B. RSV PCR was reviewed and was negative. Labs: Laboratory Results - last 24 hr 09/05/24 15:55 WBC 20.8 H RBC 4.56 L Hgb 15.1 Hct 42.7 MCV 93.6 MCH 33.1 H MCHC 35.4 RDW Std Deviation 49.5 H RDW Coeff of Silvana 14.4 Plt Count 206 MPV 10.7 Immature Gran % (Auto) 0.800 Neut % (Auto) 89.2 H Lymph % (Auto) 5.9 L [place] % (Auto) 3.5 Eos % (Auto) 0.1 Baso % (Auto) 0.5 Absolute Neuts (auto) 18.6 H Absolute Lymphs (auto) 1.23 Nucleated RBC % 0 Sodium 131 L Potassium 4.2 Chloride 97 L Carbon Dioxide 23.2 Anion Gap 11 BUN 7 Creatinine 0.68 L Estim Creat Clear Calc 129.82 Est GFR (MDRD) Non-Af 117 BUN/Creatinine Ratio 10.2 Glucose 109 H Calcium 9.3 Treatment and Re-Evaluation Narrative: Patient was advised of his findings. Patient is not having any urinary complaints. Patient is not having any cough or fever. I do not feel the patient has a urinary tract infection or pneumonia. Patient was instructed to take Tylenol or ibuprofen as needed for any aches or fevers. Patient was instructed to follow-up with his primary care physician in 5 to 7 days. Patient was instructed to return if worse in any way. Patient understood and was agreeable with the plan. All questions were answered. Discharge Plan Triage Chief Complaint: Back ED Provider: Michael Beckford Dx/Rx/DC Orders Clinical Impression: Leg cramping, Nicotine dependence, Leukocytosis Instructions: ED Leg Spasm, ED Muscle Spasm Prescriptions: No Action aspirin 81 mg tablet,chewable 81 mg PO DAILY Qty: 90 3RF atorvastatin 40 mg Tablet 40 mg PO QHS Qty: 30 5RF carvedilol 12.5 mg Tablet 12.5 mg PO BIDCM Qty: 60 5RF lisinopril 10 mg Tablet 10 mg PO DAILY Qty: 30 5RF aspirin 81 mg Tablet,Chewable 81 mg PO DAILYCM Qty: 30 4RF furosemide [Lasix] 20 mg tablet 20 mg PO QODAY Qty: 30 5RF potassium chloride 10 mEq tablet extended release 10 meq PO DAILY Qty: 30 2RF Brilinta 90 mg Tablet 90 mg PO BID Qty: 60 3RF lisinopril 10 mg Tablet 10 mg PO DAILY Qty: 30 2RF Jardiance 25 mg Tablet 25 mg PO DAILY Qty: 30 2RF atorvastatin 40 mg tablet 40 mg PO QHS Qty: 90 3RF carvedilol 12.5 mg tablet 12.5 mg PO BIDCM Qty: 180 3RF Primary Care Provider: Pau Hurley Referrals: Pau Hurley, DO [Primary Care Provider] - 5-7 Days Print Language: Occitan Disposition Disposition: Home, Self Care
[2024-09-05 16:29] LABS: Anion Gap 11 (5-15); BUN 7 mg/dL (4-19); BUN/Creat Ratio 10.2 RATIO (10-20); Calcium,Total 9.3 mg/dL (7.6-11.0); Carbon Dioxide 23.2 mmol/L (21.0-32.0); Chloride 97 mmol/L (98-108); Creatinine, Serum 0.68 mg/dL (0.70-1.20); EST Glomerular Filtration Rate 117 (>60); Estimated Creatinine Clearance 129.82 ml/min (50-250); Glucose 109 mg/dL (70-99); Potassium 4.2 mmol/L (3.3-5.1); Sodium Level 131 mmol/L (133-145)
[2024-09-05 16:35] LABS: Absolute Lymphocyte Count 1.23 X10^3/uL (0.83-4.51); Absolute Neutrophil Count 18.6 X10^3/uL (2.0-7.7); Basophil% 0.5 % (0-1); Eosinophil# 0.02 X10^3/uL; Eosinophils% 0.1 % (0-5); Hematocrit 42.7 % (40-54); Hemoglobin 15.1 g/dL (13.0-16.5); Lymphocyte # 1.23 X10^3/ul (0.83-4.51); Lymphocyte % 5.9 % (19-41); Mean Corp Hgb Conc 35.4 g/dL (32-36); Mean Corpuscular Hgb 33.1 pg (27.0-32.0); Mean Corpuscular Volume 93.6 fL (80-94); Mean Platelet Vol. 10.7 fl (6.2-12.0); Monocyte# 0.73 X10^3/uL; Monocyte% 3.5 % (0-10); NRBC Flagged by Analyzer 0 % (0-5); Neutrophil # 18.58 X10^3/uL (2.7-7.7); Neutrophil % 89.2 % (47-70); Platelet Count 206 K/mm3 (150-450); RBC Distribution Width CV 14.4 % (11.6-14.6); RBC Distribution Width SD 49.5 fl (35.1-43.9); Red Blood Count 4.56 M/mm3 (4.6-6.2); White Blood Count 20.8 K/mm3 (4.4-11.0)
== END 2024-09-05 17:28 | disposition home or self-care (01) ==
PROVIDERS: Emergency Provider Emergency Medicine; PCP Family Medicine; Visit Provider Emergency Medicine
DX: R25.2 Cramp and spasm (principal); E11.9 Type 2 diabetes mellitus without complications; F17.210 Nicotine dependence, cigarettes, uncomplicated; E78.5 Hyperlipidemia, unspecified; I10 Essential (primary) hypertension; M54.9 Dorsalgia, unspecified; D72.829 Elevated white blood cell count, unspecified; I25.2 Old myocardial infarction; Z79.82 Long term (current) use of aspirin; Z95.5 Presence of coronary angioplasty implant and graft
CPT/HCPCS: 80048; 85025; 87631; 99283; A4216

== ENCOUNTER 2025-02-19 16:37 | Emergency (ER) | payer BC, MEDICAID, SELFPAY ==
[2025-02-19 16:38] VITALS: BP 125/89; PULSE 80; RESP 17; TEMP 37.1; O2SAT 98; BMI 18.7
[2025-02-19 18:38] VITALS: BP 181/100; PULSE 79; RESP 18; O2SAT 97
[2025-02-19 19:38] VITALS: BP 159/101; PULSE 76; RESP 16; O2SAT 96
--- NOTE | 2025-02-19 20:17 | EDS_ITS ---
HPI History of Present Illness Chief Complaint: Allergic Reaction Narrative Narrative: Patient is a 44-year-old male presenting to the emergency department for lip swelling. Patient has a past medical history of diabetes, dyslipidemia, CAD and tobacco use. States that he stopped smoking and started using Gab a few days ago and thinks this is what the swelling is caused by. He reports that the swelling started last night prior to him going to bed. Reports that it was initially just right lower lip and then when he woke up this morning it was his whole entire lower lip. He denies any difficulty breathing or swallowing. Denies any tongue swelling or tingling. States this has never happened before. Denies any itching, GI symptoms including nausea, vomiting, diarrhea. Denies any chest pain or shortness of breath. He is on lisinopril for his blood pressure. [facility] Medical History History of medication noncompliance Hypertension Pulmonary edema Nicotine dependence Diabetes mellitus Cardiomyopathy, ischemic Left ventricular systolic dysfunction (LVSD) Dyslipidemia Hypertension Tobacco abuse Non-STEMI (non-ST elevated myocardial infarction) (01/03/23) Home Medications ?Medication ?Instructions ?Recorded ?Last Taken ?Type aspirin 81 mg chewable tablet 81 mg PO DAILY #90 tabs 01/24/23 06/01/24 Rx atorvastatin 40 mg tablet 40 mg PO QHS #90 tabs Unknown Rx carvedilol 12.5 mg tablet 12.5 mg PO BIDCM #180 tabs 0 12/18/23 Unknown Rx empagliflozin 25 mg tablet 25 mg PO DAILY #30 tabs 08/11 Unknown Rx (Jardiance) lisinopril 10 mg tablet 10 mg PO DAILY #30 tabs 0708/11 Unknown Rx aspirin 81 mg chewable tablet 81 mg PO DAILYCM #30 tab s 06/02/24 Unknown Rx atorvastatin 40 mg tablet 40 mg PO QHS #30 tabs Unknown Rx carvedilol 12.5 mg tablet 12.5 mg PO BIDCM #60 tabs Unknown Rx furosemide 20 mg tablet (Lasix) 20 mg PO QODAY #30 tab s 06/02/24 Unknown Rx lisinopril 10 mg tablet 10 mg PO DAILY #30 tabs 05/18 12/09 Unknown Rx potassium chloride 10 mEq 10 meq PO DAILY #30 tabs Unknown Rx tablet,extended release ticagrelor 90 mg tablet (Brilinta) 90 mg PO BID #60 ta bs 06/02/24 Unknown Rx amlodipine 5 mg tablet 5 mg PO DAILY #14 tabs 02/19 Unknown Rx Allergy/AdvReac Type Severity Reaction Status Date / Time HUMZA Inhibitors Allergy Severe Angioedema Verified 02/19/25 18:45 bupropion (From Wellbutrin) Allergy Swelling Verified 02/19/25 16:39 paroxetine (From Paxil) Allergy Swelling Verified 02/19/25 16:39 Family History Other Heart disease Surgical History Stented coronary artery (01/04/23) Social History Smoking Status: Current some day smoker tobacco type: cigarettes substance use type: former substance user Date of last use: Years ago, methamphetamine and marijuana ROS ROS ED ROS Narrative see HPI EXAM Physical Exam Narrative Exam Narrative: Vital signs: Reviewed General: Alert and orientedx3. No acute distress HEENT: Head is normocephalic and atraumatic, sinuses nontender, pupils equal round and reactive. Nares are patent. Isolated symmetric swelling to the lower lip. There is no upper lip swelling. There is no tongue or oropharynx swelling noted. There is no swelling to the neck. On dental exam there is multiple dental caries however no gingival abscess or swelling noted. No evidence of Ludwigs. Neck: Supple without lymphadenopathy nontender Cardiovascular: Regular rate and rhythm, no murmurs. No rubs or gallops. Normal S1 and S2 Respiratory: Clear to auscultation bilaterally. No wheezes, rales, rhonchi Abdominal: Soft and nontender. Normal bowel sounds. No guarding or rebound. Nonsurgical abdomen Extremities: No tenderness. No bruising. Normal range of motion. Normal sensation. Skin: No rash or redness. Neurological: Cranial nerves II through XII are grossly intact. Normal strength and sensation. Normal cerebellar function The rest of the physical exam is unremarkable Const Vital Signs: 02/19/25 16:38 02/19/25 18:38 02/19/25 19:38 Temperature 98.7 F Temperature Source Oral Pulse Rate 80 79 76 Respiratory Rate 17 18 16 Blood Pressure 125/89 H 181/100 H 159/101 H Blood Pressure Mean 101 127 120 Pulse Ox 98 97 96 Oxygen Delivery Method Room Air Room Air Room Air MDM MDM MDM Narrative Medical decision making narrative: Patient is a 44-year-old male presenting to the emergency department for lip swelling. Patient was seen and examined. Vitals are stable. Patient resting in bed comfortably no acute distress. Patient has no other allergic reaction findings. Isolated lip swelling. I think this is likely due to his lisinopril. He was given prednisone and Benadryl. He was observed here for 3 hours with some mild improvement to the lip swelling. States it has been improving since this early afternoon, has not worsened. No airway involvement. I recommended that the patient stop taking the lisinopril and listed as an allergy in his chart. I switched him to amlodipine recommended that he call his primary care doctor tomorrow to follow-up and di dianelysuss if they would like to keep this as his antihypertensive or switch it to something else. I did not place him on steroids for home given he is a diabetic. Instructed if he has any other allergic type symptoms that he can continue taking the Benadryl or Zyrtec if it is during the day. Given strict return precautions if he develops any worsening swelling of his lip, difficulty breathing, tongue swelling, chest pain, shortness of breath or GI symptoms. Patient understands. Patient discharged from the Emergency Department. I do not feel that the patient's evaluation reveals any acute reason for admission at this time. I instructed them to either follow-up with their primary care physician or promptly return to the Emergency Department for reevaluation should symptoms worsen or new symptoms develop. I explained what symptoms would indicate the need to return to the emergency department. Shared decision making was used. The patient voiced understanding of the treatment plan and is a greeable with it. Clinical impression Angioedema History & Record Review Discussion w/independent historian: Patient Discharge Plan Triage Chief Complaint: Allergic Reaction ED Provider: Shaylee Puri Dx/Rx/DC Orders Clinical Impression: Angioedema of lips Instructions: ED Angioedema Prescriptions: New amlodipine 5 mg tablet 5 mg PO DAILY Qty: 14 0RF No Action aspirin 81 mg tablet,chewable 81 mg PO DAILY Qty: 90 3RF atorvastatin 40 mg Tablet 40 mg PO QHS Qty: 30 5RF carvedilol 12.5 mg Tablet 12.5 mg PO BIDCM Qty: 60 5RF lisinopril 10 mg Tablet 10 mg PO DAILY Qty: 30 5RF aspirin 81 mg Tablet,Chewable 81 mg PO DAILYCM Qty: 30 4RF furosemide [Lasix] 20 mg tablet 20 mg PO QODAY Qty: 30 5RF potassium chloride 10 mEq tablet extended release 10 meq PO DAILY Qty: 30 2RF Brilinta 90 mg Tablet 90 mg PO BID Qty: 60 3RF lisinopril 10 mg Tablet 10 mg PO DAILY Qty: 30 2RF Jardiance 25 mg Tablet 25 mg PO DAILY Qty: 30 2RF atorvastatin 40 mg tablet 40 mg PO QHS Qty: 90 3RF carvedilol 12.5 mg tablet 12.5 mg PO BIDCM Qty: 180 3RF Primary Care Provider: Pau Hurley Referrals: Pau Hurley, DO [Primary Care Provider] - 2 Days Activity Restrictions/Additional Instructions: Please stop taking your lisinopril. Take the amlodipine instead as prescribed. Call your primary care doctor and follow-up as soon as possible to discuss this change. Your evaluation in the Emergency Department did not reveal any acute reason for admission. However, I want to emphasize that you may be early in the course of a disease process or illness even if it is not present. For this reason you should follow-up within 24 hours for reevaluation with either your primary care physician or if necessary back here in the Emergency Department. You should return to the Emergency Department immediately if your symptoms worsen or new symptoms develop. Print Language: Faroese Disposition Disposition: Home, Self Care
[2025-02-19 20:23] VITALS: BP 159/82; PULSE 57; RESP 18; TEMP 36.4; O2SAT 99
== END 2025-02-19 20:24 | disposition home or self-care (01) ==
PROVIDERS: Emergency Provider Student in an Organized Health Care Education/Training Program; PCP Family Medicine; Visit Provider Student in an Organized Health Care Education/Training Program
DX: T78.3XXA Angioneurotic edema, initial encounter (principal); E11.9 Type 2 diabetes mellitus without complications; E78.5 Hyperlipidemia, unspecified; I10 Essential (primary) hypertension; I25.10 Atherosclerotic heart disease of native coronary artery without angina pectoris; I25.2 Old myocardial infarction; Z95.5 Presence of coronary angioplasty implant and graft; F17.210 Nicotine dependence, cigarettes, uncomplicated
CPT/HCPCS: 99283